=== PATIENT | male | born 1940 | race Caucasian/White ===

== ENCOUNTER 2017-10-27 09:35 | Emergency (ER) | payer OTHER, BC ==
[2017-10-27 09:52] VITALS: BP 153/61; PULSE 72; TEMP 98; BMI 33.0
--- NOTE | 2017-10-27 10:57 | PDOC ---
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 Pt was walking down steps outside, slipped and fell on ice, hit R hip. No head trauma. Was able to pick himself back up and walk w/ some pain. Over last 4 days , he has noticed some mild bruising around the area, and progressive increasing localized dull pain. No neurologic complaints. No generalized symptoms such as fevers, chills, CP, SOB. Past History - Past Medical History Allergies/Adverse Reactions: Allergies Allergy/AdvReac Type Severity Reaction Status Date / Time No Known Allergies Allergy Verified 10/27/17 09:44 Home Medications: Ambulatory Orders Warfarin Na [Coumadin] 7.5 mg PO HS 11/17/13 Amlodipine Besylate/Benazepril [Lotrel 10-20 mg Capsule] 1 cap PO DAILY Aspirin [ASA -] 81 mg PO DAILY 10/27/17 Ezetimibe/Simvastatin [Ezetimibe-Simvastatin 10-40 mg] 1 each PO HS 10/27/17 Glimepiride 4 mg PO BID 10/27/17 Hydrochlorothiazide 25 mg PO DAILY 10/27/17 Metoprolol Tartrate 100 mg PO BID 10/27/17 Sitagliptin Phos/Metformin HCl [Janumet 50-1,000 mg Tablet] 1 each PO BID Tramadol HCl [Ultram -] 50 mg PO Q12H #14 tablet MDD 400mg 10/27/17 Warfarin Na [Coumadin] 5 mg PO HS 10/27/17 Cardiac Disorders: Yes (OPEN HEART SX) COPD: No Diabetes: Yes HTN: Yes - Surgical History Cardiac Surgery: Yes (OPEN HEART SX.MECHANICAL VALVE) - Suicide/Smoking/Psychosocial Hx Smoking History: Never smoked Have you smoked in the past 12 months: No Information on smoking cessation initiated: No Hx Alcohol Use: No Drug/Substance Use Hx: No Substance Use Type: None *Physical Exam - Vital Signs Last Vital Signs Temp Pulse Resp BP Pulse Ox 98.0 F 72 18 153/61 94 L 10/27/17 09:44 10/27/17 09:44 10/27/17 09:44 10/27/17 09:44 10/27/17 09:44 - Physical Exam Comments: GEN: AAOx3, NAD, Lying comfortable HEENT: PERRLA, EOMi CV: S1, S2, RRR LUNG: CTABL ABD: Soft, NT, ND, normoactive BS MSK: Mild scattered superficial bruising in R hip, no obvious deep hematoma. No localized tenderness. No leg length discrepancy. Difficulty bearng weight. No pain on passive R hip movement, pain w/ active flexion, extension, abduction. NEURO: CN 2-12 grossly intact Medical Decision Making - Medical Decision Making 77yo M w/ hx of AVR on Coumadin, presents w/ R hip pain s/p mechanical fall 4 days ago. Currently able to ambulate with limp due to pain. Difficulty bearing weight. Likely simple muscle strain w/ superficial bruise. Does not clinically appear to be a hematoma. --Pelvic XR 10/27/17 13:03 Pelvix XR wnl, no fractures. Patient informed it was likely muscular since pain on active rather than passive ROM. Will give Ultram 50mg BID prescription *DC/Admit/Observation/Transfer Diagnosis at time of Disposition: Muscle strain of gluteal region Qualifiers: Encounter type: initial encounter Laterality: right Qualified Code(s): S76.011A - Strain of muscle, fascia and tendon of right hip, initial encounter - Discharge Dispostion Disposition: HOME Condition at time of disposition: Stable Admit: No - Prescriptions Prescriptions: Tramadol HCl [Ultram -] 50 mg PO Q12H #14 tablet MDD 400mg - Referrals Referrals: Bernardino Dixon MD [Primary Care Provider] - 7 days - Patient Instructions Printed Discharge Instructions: DI for Gluteal Strain Additional Instructions: You were seen in the Emergency Department due to your R hip pain. It does not appear that you have a hematoma. You do not have a fracture according to the X- Ray. We will give you Tramadol x 1 week. It is unlikely, but Tramadol may interact with COumadin. We would like you to follow up with Dr. Dixon this week to check your INR and to ensure the pain is not getting worse. If the pain worsens, if you have fevers or chills, or have any headaches, excessive bleeding. Please come back to the Emergency Room. - Post Discharge Activity
--- NOTE | 2017-10-27 11:17 | PDOC ---
Attending Attestation - Resident Resident Name: Melissa Calles - ED Attending Attestation I have performed the following: I have examined & evaluated the patient, The case was reviewed & discussed with the resident, I agree w/resident's findings & plan, Exceptions are as noted - HPI HPI: 10/27/17 11:09 77y M s/p mechanical fall 4 days ago, slipped on ice, presents with R hip pain. No LOC, head injiury, headache. Was able to ambulate afterwards, and was ok the day after, but pain worsed over the past day. No associated back pain, numbness/ tingling/weakness. but has been gradually worsening. +bruising noted. Last INR check was 2 weeks ago. on exam +ecchymosis on R hip pt wit hmild tenderness on R hip, but no pain with passive ROM, more pain on active ROM and abduction - suspect muscular in nature. antalgic gait. will obtain xrays - Physicial Exam PE: 10/27/17 17:20 see above - Medical Decision Making 10/27/17 14:20 xray neg pt abmulatory suspect musuclar pain and eccymosis will dc with supportive care return precautions were discussed I discussed the physical exam findings, ancillary test results and final diagnoses with the patient. I answered all of the patient's questions. The patient was satisfied with the care received and felt comfortable with the discharge plan and treatment plan. The patient will call their primary care physician within 24 hours to arrange follow-up and will return to the Emergency Department with any new, persistent or worsening symptoms.
[2017-10-27] MEDS ORDERED: traMADol HCL 50 MG TABLET PO ONE (11:28)
[2017-10-27] MEDS ORDERED: traMADol HCL 50 MG TABLET ONE (11:38)
== END 2017-10-27 13:53 | disposition home or self-care (01) ==
LOC: JER 09:35
DX: S76.011A Strain of muscle, fascia and tendon of right hip, initial encounter (principal); W00.1XXA Fall from stairs and steps due to ice and snow, initial encounter; Y93.89 Activity, other specified; Y92.038 Other place in apartment as the place of occurrence of the external cause; Y99.8 Other external cause status; I10 Essential (primary) hypertension; E11.9 Type 2 diabetes mellitus without complications; Z79.84 Long term (current) use of oral hypoglycemic drugs; Z95.2 Presence of prosthetic heart valve; Z79.01 Long term (current) use of anticoagulants
CPT/HCPCS: 72170-TC; 99282-25

== ENCOUNTER 2020-05-03 16:15 | Inpatient (IN) | payer OTHER, BC ==
--- NOTE | 2020-05-03 17:10 | PDOC ---
History of Present Illness - General Chief Complaint: Respiratory Stated Complaint: HEMATEMESIS Time Seen by Provider: 05/03/20 16:43 - History of Present Illness Initial Comments: 79M hx of aortic valve replacement in 1999 (on coumadin), HTN, HLD, DM presenting today with hematemesis. Reports that he vomited once yesterday and twice today. Brown colored vomit with no bright red blood and no black tarry color. First time this has happened. No diarrhea/constipation/blood in stool/melena. No history of gastric ulcers or esophageal varices. No chest pain/shortness of breath. No abdominal pain. No leg swelling. No headache/dizziness/syncope. Meds: coumadin SocHx: former ETOH and tobacco user, quit 20 years ago Past History - Medical History Allergies/Adverse Reactions: Allergies Allergy/AdvReac Type Severity Reaction Status Date / Time No Known Allergies Allergy Verified 05/03/20 16:26 Home Medications: Ambulatory Orders Warfarin Na [Coumadin] 7.5 mg PO HS 11/17/13 Amlodipine Besylate/Benazepril [Lotrel 10-20 mg Capsule] 1 cap PO DAILY 10/27/17 Aspirin [ASA -] 81 mg PO DAILY 10/27/17 Ezetimibe/Simvastatin [Ezetimibe-Simvastatin 10-40 mg] 1 each PO HS 10/27/17 Glimepiride 4 mg PO BID 10/27/17 Hydrochlorothiazide 25 mg PO DAILY 10/27/17 Metoprolol Tartrate 100 mg PO BID 10/27/17 Sitagliptin Phos/Metformin HCl [Janumet 50-1,000 mg Tablet] 1 each PO BID 10/27/17 Warfarin Na [Coumadin] 5 mg PO HS 10/27/17 traMADol HCL [Ultram -] 50 mg PO Q12H #14 tablet MDD 400mg 10/27/17 Cardiac Disorders: Yes (OPEN HEART SX) COPD: No Diabetes: Yes HTN: Yes Hypercholesterolemia: Yes - Surgical History Cardiac Surgery: Yes (OPEN HEART SX.) - Immunization History Immunization Up to Date: Yes - Psycho-Social/Smoking History Smoking History: Unknown if ever smoked Have you smoked in the past 12 months: No - Substance Abuse Hx (Audit-C & DAST Scrn) How often the patient has a drink containing alcohol: Never Score: In Men: 4 or > Positive; In Women: 3 or > Positive: 0 Screen Result (Pos requires Nsg. Audit-10AR): Negative In the last yr the pt used illegal drug/Rx for NonMed reason: No Score: Yes response is considered Positive: 0 Screen Result (Positive result requires Nsg. DAST-10): Negative Review of Systems - Review of Systems Comments:: GENERAL/CONSTITUTIONAL: No fever or chills. No weakness._ HEAD, EYES, EARS, NOSE AND THROAT: No change in vision. No change in hearing. No sore throat._ CARDIOVASCULAR: No chest pain or shortness of breath_ RESPIRATORY: Denies cough, hemoptysis_ GASTROINTESTINAL: Reports vomiting with blood. No diarrhea or constipation._ GENITOURINARY: No dysuria, frequency, or change in urination._ MUSCULOSKELETAL: No joint or muscle swelling or pain. No neck or back pain._ SKIN: No rash_ NEUROLOGIC: No headache, vertigo, loss of consciousness, or change in strength/sensation._ ENDOCRINE: No increased thirst. No abnormal weight change_ HEMATOLOGIC/LYMPHATIC: No anemia, easy bleeding, or history of blood clots._ ALLERGIC/IMMUNOLOGIC: No hives or skin allergy._ *Physical Exam - Vital Signs Last Vital Signs Temp Pulse Resp BP Pulse Ox 97.8 F 69 20 116/42 L 100 05/03/20 16:27 05/03/20 16:27 05/03/20 16:27 05/03/20 16:27 05/03/20 17:07 - Physical Exam GENERAL: Awake, alert, and oriented to person/place/time, in no acute distress_ HEAD: No signs of trauma, normocephalic, atraumatic _ EYES: PERRLA, EOMI, sclera anicteric, conjunctiva clear_ ENT: Hearing grossly normal, nares patent, oropharynx clear without exudates. No uvular deviation. Moist mucosa_ NECK: Normal ROM, supple, no lymphadenopathy, JVD, or masses_ LUNGS: No distress, speaks in full sentences, clear to auscultation bilaterally _ HEART: Regular rate and rhythm, normal S1 and S2, no murmurs appreciated, peripheral pulses normal and equal bilaterally._ ABDOMEN: Soft, nontender, normoactive bowel sounds. No guarding, no rebound. No masses_ EXTREMITIES: Normal inspection, Normal range of motion, no edema. No clubbing or cyanosis_ NEUROLOGICAL: Cranial nerves II through XII grossly intact. Normal speech, normal gait, no focal sensorimotor deficits _ SKIN: Warm, Dry, normal turgor, no rashes or lesions noted_ ED Treatment Course - LABORATORY CBC & Chemistry Diagram: 05/04/20 05:54 05/04/20 05:54 - RADIOLOGY Radiology Studies Ordered: Category Date Time Status CHEST X-RAY PORTABLE* [RAD] Stat Radiology 05/03/20 16:54 Ordered Medical Decision Making - Medical Decision Making 79M hx of afib (on coumadin), HTN HLD DM presenting today with hematemesis x3 (two yesterday, one today). Brown colored vomit. -cbc, cmp -ekg, trop, cxr -coags -type and screen 05/03/20 17:18 EKG shows 69 bpm, NSR, no axis deviation, NV 190, QTc 439, no ST elevation/depression. 05/03/20 17:52 CXR negative for acute chest pathology. 05/03/20 18:34 D/w Dr. Romero, who requests ICU admission and GI consultation. 80 protonix. 05/03/20 18:40 Labs reviewed. Laboratory Last Values WBC 17.4 K/mm3 (4.0-10.0) H 05/03/20 16:46 RBC 2.98 M/mm3 (4.00-5.60) L 05/03/20 16:46 Hgb 7.6 GM/dL (11.7-16.9) L 05/03/20 16:46 Hct 24.7 % (35.4-49) L D 05/03/20 16:46 MCV 82.6 fl (80-96) 05/03/20 16:46 MCH 25.4 pg (25.7-33.7) L 05/03/20 16:46 MCHC 30.7 g/dl (32.0-35.9) L 05/03/20 16:46 RDW 18.7 % (11.9-15.9) H 05/03/20 16:46 Plt Count 237 K/MM3 (134-434) D 05/03/20 16:46 MPV 9.1 fl (7.5-11.1) 05/03/20 16:46 Absolute Neuts (auto) 14.5 K/mm3 (1.5-8.0) H 05/03/20 16:46 Neutrophils % 83.2 % (42.8-82.8) H 05/03/20 16:46 Lymphocytes % 8.9 % (8-40) 05/03/20 16:46 Monocytes % 7.6 % (3.8-10.2) 05/03/20 16:46 Eosinophils % 0.0 % (0-4.5) 05/03/20 16:46 Basophils % 0.3 % (0-2.0) 05/03/20 16:46 Nucleated RBC % 0 % (0-0) 05/03/20 16:46 PT with INR 98.10 SEC (9.7-13.0) H 05/03/20 16:46 INR 8.14 (0.83-1.09) H* 05/03/20 16:46 PTT (Actin FS) 45.5 SECONDS (25.2-36.5) H 05/03/20 16:46 Sodium 139 mmol/L (136-145) 05/03/20 16:54 Potassium 5.3 mmol/L (3.5-5.1) H 05/03/20 16:54 Chloride 108 mmol/L (98-107) H 05/03/20 16:54 Carbon Dioxide 16 mmol/L (21-32) L 05/03/20 16:54 Anion Gap 15 MMOL/L (8-16) 05/03/20 16:54 Creatinine 2.2 mg/dL (0.55-1.3) H 05/03/20 16:54 Est GFR (CKD-EPI)AfAm 32.29 05/03/20 16:54 Est GFR (CKD-EPI)NonAf 27.86 05/03/20 16:54 Random Glucose 243 mg/dL (74-106) H 05/03/20 16:54 Calcium 8.4 mg/dL (8.5-10.1) L 05/03/20 16:54 Total Bilirubin 0.4 mg/dL (0.2-1) 05/03/20 16:54 AST 23 U/L (15-37) 05/03/20 16:54 ALT 21 U/L (13-61) 05/03/20 16:54 Alkaline Phosphatase 28 U/L (45-117) L 05/03/20 16:54 Creatine Kinase 389 U/L (26-308) H 05/03/20 16:54 Troponin I 0.02 ng/ml (0.00-0.05) 05/03/20 16:54 Total Protein 5.4 g/dl (6.4-8.2) L 05/03/20 16:54 Albumin 2.8 g/dl (3.4-5.0) L 05/03/20 16:54 Crossmatch See Detail 05/03/20 16:46 05/03/20 18:43 D/w Dr. Fraga in the ICU who accepts the pt for admission. Will order FFP and Vitamin K. 05/03/20 19:10 D/w Dr. Jones who recommends 2 units of FFP, recheck INR, and additional 2 units FFP if needed to bring INR down to therapeutic range. 05/03/20 19:18 Pt has a mechanical valve. Will obtain cards consult prior to coumadin reversal. Pt s/o to Dr. Perrin. Discharge - Discharge Information Problems reviewed: Yes Clinical Impression/Diagnosis: Upper gastrointestinal bleed Condition: Guarded - Admission Yes - Follow up/Referral - Patient Discharge Instructions - Post Discharge Activity
[2020-05-03 18:01] LABS: PROTHROMBIN TIME (PATIENT) 98.1 SEC (9.7-13.0)
[2020-05-03 18:04] LABS: ACTIVATED PTT 45.5 SECONDS (25.2-36.5)
[2020-05-03 18:05] LABS: BASO % 0.3 % (0-2.0); HEMATOCRIT 24.7 % (35.4-49); HEMOGLOBIN 7.6 GM/dL (11.7-16.9); LYMPH % 8.9 % (8-40); MCH 25.4 pg (25.7-33.7); MCHC 30.7 g/dl (32.0-35.9); MEAN CELL VOLUME 82.6 fl (80-96); MEAN PLT VOLUME 9.1 fl (7.5-11.1); MONO % 7.6 % (3.8-10.2); NEUT % 83.2 % (42.8-82.8); PLATELET COUNT 237 K/MM3 (134-434); RBC 2.98 M/mm3 (4.00-5.60); RDW 18.7 % (11.9-15.9); WHITE BLOOD COUNT 17.4 K/mm3 (4.0-10.0)
[2020-05-03] MEDS ORDERED: PANTOPRAZOLE SODIUM 80 MG/200 ML BAG IVPB ONE (18:18)
[2020-05-03 18:24] LABS: ALBUMIN 2.8 g/dl (3.4-5.0); BILIRUBIN,TOTAL 0.4 mg/dL (0.2-1); CALCIUM 8.4 mg/dL (8.5-10.1); CREATININE 2.2 mg/dL (0.55-1.3); POTASSIUM 5.3 mmol/L (3.5-5.1); TOT PROT 5.4 g/dl (6.4-8.2)
[2020-05-03] MEDS: PANTOPRAZOLE SODIUM 80 MG in SODIUM CHLORIDE 100 ML IVPB SCH (18:24)
--- NOTE | 2020-05-03 18:26 | HP ---
Admitting History and Physical - Admission History of Present Illness: 79y/o M with a PMH of aortic valve replacement in 1999 (on coumadin), HTN, HLD, DM who presents to the ED for 3 episode of brown colored emesis . Pt reports endorsing one episode yesterday and two episodes today. 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 Cardiovascular: Yes: HTN, Hyperlipdemia, Other (AVR) Endocrine: Yes: Diabetes Mellitus - Smoking History Smoking history: Unknown if ever smoked Have you smoked in the past 12 months: No - Alcohol/Substance Use Hx Alcohol Use: No Home Medications - Allergies Allergies/Adverse Reactions: Allergies Allergy/AdvReac Type Severity Reaction Status Date / Time No Known Allergies Allergy Verified 05/03/20 16:26 - Home Medications Home Medications: Ambulatory Orders Warfarin Na [Coumadin] 7.5 mg PO HS 11/17/13 Amlodipine Besylate/Benazepril [Lotrel 10-20 mg Capsule] 1 cap PO DAILY 10/27/17 Aspirin [ASA -] 81 mg PO DAILY 10/27/17 Ezetimibe/Simvastatin [Ezetimibe-Simvastatin 10-40 mg] 1 each PO HS 10/27/17 Glimepiride 4 mg PO BID 10/27/17 Hydrochlorothiazide 25 mg PO DAILY 10/27/17 Metoprolol Tartrate 100 mg PO BID 10/27/17 Sitagliptin Phos/Metformin HCl [Janumet 50-1,000 mg Tablet] 1 each PO BID 10/27/17 Warfarin Na [Coumadin] 5 mg PO HS 10/27/17 traMADol HCL [Ultram -] 50 mg PO Q12H #14 tablet MDD 400mg 10/27/17 Review of Systems - Review of Systems Cardiovascular: denies: Chest Pain Respiratory: reports: Cough Gastrointestinal: reports: Nausea, Vomiting, Vomiting Blood. denies: Abdominal Pain Genitourinary: reports: No Symptoms Breasts: reports: No Symptoms Reported Physical Examination Vital Signs: Vital Signs Temperature 97.8 F 05/03/20 16:27 Pulse Rate 69 05/03/20 16:27 Respiratory Rate 20 05/03/20 16:27 Blood Pressure 116/42 L 05/03/20 16:27 O2 Sat by Pulse Oximetry (%) 100 05/03/20 17:07 Cardiovascular: Yes: Regular Rate and Rhythm, Murmur Respiratory: Yes: Regular, Rhonchi Gastrointestinal: Yes: Normal Bowel Sounds, Soft. No: Tenderness Edema: No Labs: CBC, BMP 05/03/20 16:46 05/03/20 16:54 Problem List - Problems (1) Upper gastrointestinal bleed Assessment/Plan: Transfuse PRBC PPI GI consult NPO Code(s): K92.2 - GASTROINTESTINAL HEMORRHAGE, UNSPECIFIED (2) S/P AVR Assessment/Plan: hold coumadin follow levels closely Code(s): Z95.2 - PRESENCE OF PROSTHETIC HEART VALVE (3) Hypercoagulable state Assessment/Plan: reverse INR to 2.5 monitor closely FFP Code(s): D68.59 - OTHER PRIMARY THROMBOPHILIA (4) HTN (hypertension) Code(s): I10 - ESSENTIAL (PRIMARY) HYPERTENSION (5) Anemia Assessment/Plan: Transfuse PRBC Follow levels CBC WBC 17.4 K/mm3 (4.0-10.0) H 05/03/20 16:46 RBC 2.98 M/mm3 (4.00-5.60) L 05/03/20 16:46 Hgb 7.6 GM/dL (11.7-16.9) L 05/03/20 16:46 Hct 24.7 % (35.4-49) L D 05/03/20 16:46 MCV 82.6 fl (80-96) 05/03/20 16:46 MCH 25.4 pg (25.7-33.7) L 05/03/20 16:46 MCHC 30.7 g/dl (32.0-35.9) L 05/03/20 16:46 RDW 18.7 % (11.9-15.9) H 05/03/20 16:46 Plt Count 237 K/MM3 (134-434) D 05/03/20 16:46 MPV 9.1 fl (7.5-11.1) 05/03/20 16:46 Absolute Neuts (auto) 14.5 K/mm3 (1.5-8.0) H 05/03/20 16:46 Neutrophils % 83.2 % (42.8-82.8) H 05/03/20 16:46 Lymphocytes % 8.9 % (8-40) 05/03/20 16:46 Monocytes % 7.6 % (3.8-10.2) 05/03/20 16:46 Eosinophils % 0.0 % (0-4.5) 05/03/20 16:46 Basophils % 0.3 % (0-2.0) 05/03/20 16:46 Nucleated RBC % 0 % (0-0) 05/03/20 16:46 Code(s): D64.9 - ANEMIA, UNSPECIFIED (6) FITO (acute kidney injury) Assessment/Plan: follow labs and repeat monitor I & O Renal consult Code(s): N17.9 - ACUTE KIDNEY FAILURE, UNSPECIFIED (7) Leukocytosis Assessment/Plan: maybe reactive r/o sepsis cultures hold off on abx pending work up id consult Code(s): D72.829 - ELEVATED WHITE BLOOD CELL COUNT, UNSPECIFIED
[2020-05-03] MEDS ORDERED: PHYTONADIONE 10 MG/1 ML AMP IVPB ONE (18:35)
[2020-05-03 18:38] LABS: INR 8.14 (0.83-1.09)
--- NOTE | 2020-05-03 19:00 | PDOC ---
Documentation entered by Luis Lindsey SCRIBE, acting as scribe for Muriel Hernandez MD. Muriel Hernandez MD: This documentation has been prepared by the Rosalia mays Xhesika, SCRIBE, under my direction and personally reviewed by me in its entirety. I confirm that the documentation accurately reflects all work, treatment, procedures, and medical decision making performed by me. Attending Attestation - Resident Resident Name: BalbirParker - ED Attending Attestation I have performed the following: I have examined & evaluated the patient, The case was reviewed & discussed with the resident, I agree w/resident's findings & plan, Exceptions are as noted - HPI HPI: 05/03/20 17:23 The patient is a 79y/o M with a PMH of aortic valve replacement in 1999 (on coumadin), HTN, HLD, DM who presents to the ED for 3 episode of brown colored emesis . Pt reports endorsing one episode yesterday and two episodes today. The patient denies chest pain, shortness of breath, headache and dizziness. Denies fever, chills, cough, nausea, vomiting, diarrhea and constipation. Denies dysuria, frequency, urgency and hematuria. Allergies: NKDA PCP: Dr. Dixon - Physicial Exam PE: 05/03/20 18:57 Agree with resident exam - Critical Care Time Total Critical Care Time: 40 Critical Care Statement: The care of this patient involved high complexity decision making to prevent further life threatening deterioration of the patient's condition and/or to evaluate & treat vital organ system(s) failure or risk of failure. - Medical Decision Making 05/03/20 18:57 79yo M hx valve replacement on coumadin presents to the ED with brown emesis x3 Vitals wnl hgb 7.6, down from 16 years ago INR 8, pt took coumadin last night Likely UGIB in setting of supratherapeutic INR GI Dr. Jones called x2, awaiting call back 2IVs in place prbc, FFP, IV vitamin K ordered ICU accepted patient Discharge - Discharge Information Problems reviewed: Yes Clinical Impression/Diagnosis: Upper gastrointestinal bleed - Follow up/Referral Referrals: Bernardino Dixon MD [Primary Care Provider] - - Patient Discharge Instructions - Post Discharge Activity
[2020-05-03 19:06] LABS: BLOOD UREA NITROGEN 117.8 mg/dL (7-18)
[2020-05-03] MEDS ORDERED: ONDANSETRON 4 MG/2 ML VIAL IVPUSH ONE (19:12)
--- NOTE | 2020-05-03 19:33 | CONSULT ---
Consultation: REQUESTING PROVIDER: Dr Mcgregor CONSULT REQUEST: ICU monitoring HISTORY OF PRESENT ILLNESS: 79 y.o male with PMH of aortic valve replacement ( in 2001) HTN HLD DM presents to the ED after having multiple episodes of hematemesis and was found to have a supratheraputic INR- he states that he has been having hematemesis for the last two days; states that he has not had much of an appetite the last few days either. This has never havent to him before- he denies taking any extra doses of his coumadin. He does not recall ever having a colonoscopy or an endoscopy . he has no alcohol history , denies any history of any varices. . he denies having any bloody stools. no diarrhea, no respiratory complaints- no recent travel or any sick contacts. in the ED patient receievd 1 unit of PRBC; 1 unit FFP and 10- mg vitamin K- GI was consulted- patient to receive 2 FFP and then rechecking of INR. patient was also started on protonix drip. cardiology consulted in given patient has aortic valve repair REVIEW OF SYSTEMS: CONSTITUTIONAL: Present: loss of appetite Absent: fever, chills, diaphoresis, generalized weakness, malaise, weight change HEENT: Absent: rhinorrhea, nasal congestion, throat pain, throat swelling, difficulty swallowing, mouth swelling, ear pain, eye pain, visual changes CARDIOVASCULAR: Absent: chest pain, syncope, palpitations, irregular heart rate, lightheadedness, peripheral edema RESPIRATORY: Absent: cough, shortness of breath, dyspnea with exertion, orthopnea, wheezing, stridor, hemoptysis GASTROINTESTINAL: Present: hematemesis, vomiting Absent: abdominal pain, abdominal distension, nausea, diarrhea, constipation, melena, hematochezia GENITOURINARY: Absent: dysuria, frequency, urgency, hesitancy, hematuria, flank pain, genital pain MUSCULOSKELETAL: Absent: myalgia, arthralgia, joint swelling, back pain, neck pain SKIN: Absent: rash, itching, pallor HEMATOLOGIC/IMMUNOLOGIC: Absent: easy bleeding, easy bruising, lymphadenopathy, frequent infections ENDOCRINE: Absent: unexplained weight gain, unexplained weight loss, heat intolerance, cold intolerance NEUROLOGIC: Absent: headache, focal weakness or paresthesias, dizziness, unsteady gait, seizure, mental status changes, bladder or bowel incontinence PSYCHIATRIC: Absent: anxiety, depression, suicidal or homicidal ideation, hallucinations. PHYSICAL EXAMINATION Vital Signs - 24 hr 05/03/20 05/03/20 16:27 17:07 Temperature 97.8 F Pulse Rate 69 Respiratory 20 Rate Blood Pressure 116/42 L O2 Sat by Pulse 88 L 100 Oximetry (%) GENERAL: Awake, alert, and fully oriented, in no acute distress. EYES: PEERLA; EOMI; no scleral icterus NECK: no JVD; no lymphadenopathy LUNGS:diminished breath sounds at the bases; no rales/rhonchi or wheezing HEART: RRR s1; s2 systolic murmurs ABDOMEN: Soft, NT ND +BS in all 4 quadrants MUSCULOSKELETAL: Normal range of motion at all joints. No bony deformities or tenderness. No CVA tenderness. EXTREMITIES: warm; well-perfused no clubbing/cyanosis or edema NEUROLOGICAL: Cranial nerves II-XII intact. Normal speech. Normal gait. PSYCHIATRIC: Cooperative. Good eye contact. Appropriate mood and affect. SKIN: Warm, dry, normal turgor, no rashes or lesions noted. Laboratory Results - last 24 hr 05/03/20 05/03/20 05/03/20 16:46 16:46 16:46 WBC 17.4 H RBC 2.98 L Hgb 7.6 L Hct 24.7 L D MCV 82.6 MCH 25.4 L MCHC 30.7 L RDW 18.7 H Plt Count 237 D MPV 9.1 Absolute Neuts (auto) 14.5 H Neutrophils % 83.2 H Lymphocytes % 8.9 Monocytes % 7.6 Eosinophils % 0.0 Basophils % 0.3 Nucleated RBC % 0 PT with INR 98.10 H INR 8.14 H* PTT (Actin FS) 45.5 H Sodium Potassium Chloride Carbon Dioxide Anion Gap BUN Creatinine Est GFR (CKD-EPI)AfAm Est GFR (CKD-EPI)NonAf Random Glucose Calcium Total Bilirubin AST ALT Alkaline Phosphatase Creatine Kinase Creatine Kinase Index CK-MB (CK-2) Troponin I Total Protein Albumin Blood Type A NEGATIVE Antibody Screen Negative Crossmatch See Detail 05/03/20 16:54 WBC RBC Hgb Hct MCV MCH MCHC RDW Plt Count MPV Absolute Neuts (auto) Neutrophils % Lymphocytes % Monocytes % Eosinophils % Basophils % Nucleated RBC % PT with INR INR PTT (Actin FS) Sodium 139 Potassium 5.3 H Chloride 108 H Carbon Dioxide 16 L Anion Gap 15 BUN 117.8 H* Creatinine 2.2 H Est GFR (CKD-EPI)AfAm 32.29 Est GFR (CKD-EPI)NonAf 27.86 Random Glucose 243 H Calcium 8.4 L Total Bilirubin 0.4 AST 23 ALT 21 Alkaline Phosphatase 28 L Creatine Kinase 389 H Creatine Kinase Index 2.2 CK-MB (CK-2) 8.6 H Troponin I 0.02 Total Protein 5.4 L Albumin 2.8 L Blood Type Antibody Screen Crossmatch Active Medications Generic Name Dose Route Start Last Admin Trade Name Freq PRN Reason Stop Dose Admin Chlorhexidine Gluconate 1 applic 05/03/20 22:00 Hibiclens For Decolonization - TP HS NORMA Pantoprazole Sodium 80 mg/ 100 mls @ 10 mls/hr 05/03/20 18:00 05/03/20 18:24 Sodium Chloride IVPB 05/06/20 17:49 10 mls/hr Q10H NORMA Administration 8 MG/HR Mupirocin 1 applic 05/03/20 22:00 Bactroban Ointment (For Decolonization) - NS 05/08/20 21:59 BID NORMA ASSESSMENT/PLAN: 79 y.o male with PMH of aortic valve replacement ( in 2001) HTN HLD DM presents to the ED after having multiple episodes of hematemesis and was found to have a supratheraputic INR of 8.1 #Neuro no issues -AOX3 #Cardio history of HTN; HLD: AV replacement (on coumadin) -already received 10mg vitamin K -cardio and GI consulted; to receive 2 units FFP then recheck INR -holding anti-hypertensives currently -monitor hemodynamics; maintain MAP >65 #GI upper GI bleed -protonix drip -GI consulted -to receive 2 units of FFP then recheck INR -NPO -IVF #Heme patients Hgb was 7.9 -to receive 1 unit of PRBCs -post transfusion CBC -maintain Hgb >8 given cardiac history #Pulmonary currently saturating well on 2L NC -monitor respiratory status closely given multiple episodes of hematemesis #Renal Cr 2.2; likely pre-renal hyperkalemia- 5.1 -IVF -renal consult f/e/n IVF monitor electrolytes NPO Dispo: We will continue to follow the patient. Thank you for this consultative opportunity. Problem List - Problems (1) Upper gastrointestinal bleed Code(s): K92.2 - GASTROINTESTINAL HEMORRHAGE, UNSPECIFIED Visit type - Medication Review Med list reviewed for High Risk Meds patients 65 and older: Yes - Emergency Visit Emergency Visit: Yes ED Registration Date: 05/03/20 Care time: The patient presented to the Emergency Department on the above date and was hospitalized for further evaluation of their emergent condition. - New Patient This patient is new to me today: Yes Date on this admission: 05/03/20 - Critical Care Critical Care patient: Yes Total Critical Care Time (in minutes): 35 Critical Care Statement: The care of this patient involved high complexity decision making to prevent further life threatening deterioration of the patient's condition and/or to evaluate & treat vital organ system(s) failure or risk of failure. ATTENDING PHYSICIAN STATEMENT I saw and evaluated the patient. I reviewed the resident's note and discussed the case with the resident. I agree with the resident's findings and plan as documented. SUBJECTIVE: OBJECTIVE: ASSESSMENT AND PLAN:
--- NOTE | 2020-05-03 20:21 | PDOC ---
*Physical Exam - Vital Signs Last Vital Signs Temp Pulse Resp BP Pulse Ox 97.8 F 71 18 114/42 L 99 05/03/20 16:27 05/03/20 20:15 05/03/20 20:15 05/03/20 20:15 05/03/20 20:15 ED Treatment Course - LABORATORY CBC & Chemistry Diagram: 05/03/20 16:46 05/03/20 16:54 - ADDITIONAL ORDERS Additional order review: Laboratory Results 05/03/20 05/03/20 05/03/20 16:54 16:46 16:46 PT with INR 98.10 H INR 8.14 H* PTT (Actin FS) 45.5 H Sodium 139 Potassium 5.3 H Chloride 108 H Carbon Dioxide 16 L Anion Gap 15 BUN 117.8 H* Creatinine 2.2 H Est GFR (CKD-EPI)AfAm 32.29 Est GFR (CKD-EPI)NonAf 27.86 Random Glucose 243 H Calcium 8.4 L Total Bilirubin 0.4 AST 23 ALT 21 Alkaline Phosphatase 28 L Creatine Kinase 389 H Creatine Kinase Index 2.2 CK-MB (CK-2) 8.6 H Troponin I 0.02 Total Protein 5.4 L Albumin 2.8 L Blood Type A NEGATIVE Antibody Screen Negative Crossmatch See Detail 05/03/20 16:46 RBC 2.98 L MCV 82.6 MCHC 30.7 L RDW 18.7 H MPV 9.1 Neutrophils % 83.2 H Lymphocytes % 8.9 Monocytes % 7.6 Eosinophils % 0.0 Basophils % 0.3 - Medications Given in the ED: ED Medications Discontinued Medications Generic Name Dose Route Start Last Admin Trade Name Adelita PRN Reason Stop Dose Admin Ondansetron HCl 4 mg 05/03/20 19:12 05/03/20 19:45 Zofran Injection IVPUSH 05/03/20 19:13 4 mg ONCE ONE Administration Phytonadione 10 mg 05/03/20 18:35 05/03/20 19:45 Aqua Mephyton Injection - IVPB 05/03/20 18:36 10 mg ONCE ONE Administration Discharge - Discharge Information Clinical Impression/Diagnosis: Upper gastrointestinal bleed - Follow up/Referral - Patient Discharge Instructions - Post Discharge Activity
[2020-05-03] MEDS: LACTATED RINGERS SOLUTION 1,000 ML/1,000 ML INFUS.BAG IV SCH (20:46)
[2020-05-03] MEDS ORDERED: CEFTRIAXONE 2 GM/100 ML BAG IVPB ONE ×2 (21:41→21:47)
[2020-05-03] MEDS: INSULIN SLIDING SCALE (NOVOLOG) 1 VIAL SQ SCH (21:53)
[2020-05-04 02:47] LABS: URINE APPEARANCE CLEAR; URINE BILIRUBIN NEGATIVE (NEGATIVE); URINE COLOR YELLOW; URINE GLUCOSE (UA) NEGATIVE (NEGATIVE); URINE KETONE NEGATIVE (NEGATIVE); URINE LEUK ESTERASE NEGATIVE (NEGATIVE); URINE NITRITE NEGATIVE (NEGATIVE); URINE PROTEIN NEGATIVE (NEGATIVE); URINE UROBILINOGEN 0.2 mg/dL (0.2-1.0)
--- NOTE | 2020-05-04 05:09 | CON.HO ---
Consult - text type - Consultation Consultation Note: 79y/o M with a PMH of mechanical aortic valve replacement in 1999 (on coumadin),s/p CABG, HTN, HLD, DM who presents to the ED for 3 episode of coffee ground emesis per day for the last 3-4 days . Also with melen. Denies bright red blood per rcectum. Denies abdominal cramping - Past Medical History Cardiovascular: Yes: HTN, Hyperlipdemia, Other (AVR) Endocrine: Yes: Diabetes Mellitus - Smoking History Smoking history: Unknown if ever smoked - Allergies Allergies/Adverse Reactions: Allergies Allergy/AdvReac Type Severity Reaction Status Date / Time No Known Allergies Allergy Verified 05/03/20 16:26 - Home Medications Home Medications: Ambulatory Orders Warfarin Na [Coumadin] 7.5 mg PO HS 11/17/13 Amlodipine Besylate/Benazepril [Lotrel 10-20 mg Capsule] 1 cap PO DAILY 10/27/17 Aspirin [ASA -] 81 mg PO DAILY 10/27/17 Ezetimibe/Simvastatin [Ezetimibe-Simvastatin 10-40 mg] 1 each PO HS 10/27/17 Glimepiride 4 mg PO BID 10/27/17 Hydrochlorothiazide 25 mg PO DAILY 10/27/17 Metoprolol Tartrate 100 mg PO BID 10/27/17 Sitagliptin Phos/Metformin HCl [Janumet 50-1,000 mg Tablet] 1 each PO BID 10/27/17 Warfarin Na [Coumadin] 5 mg PO HS 10/27/17 traMADol HCL [Ultram -] 50 mg PO Q12H #14 tablet MDD 400mg 10/27/17 Physical Examination Vital Signs: Vital Signs Temperature 97.8 F 05/03/20 16:27 Pulse Rate 69 05/03/20 16:27 Respiratory Rate 20 05/03/20 16:27 Blood Pressure 116/42 L 05/03/20 16:27 O2 Sat by Pulse Oximetry (%) 100 05/03/20 17:07 Cardiovascular: Yes: Regular Rate and Rhythm, Murmur Respiratory: Yes: Regular, Rhonchi Gastrointestinal: Yes: Normal Bowel Sounds, Soft. Edema: No Labs: CBC, BMP 05/03/20 16:46 05/03/20 16:54 Problem List 79y/o M with a PMH of mechanical aortic valve replacement in 1999 (on coumadin),s/p CABG, HTN, HLD, DM who presents to the ED for 3 episode of coffee ground emesis per day for the last 3-4 days . Also with melena. Denies bright red blood per rcectum. Denies abdominal cramping s/p vitamin K 10mg IVPB 2units FFP ordered per ER recheck INR Monitor CBC/INR GI consult r/o occult infxn as cause of coagulopathy -- ceck cultures discussed with shredding machine operator Dr. Betancourt
[2020-05-04] MEDS: PANTOPRAZOLE SODIUM 80 MG in SODIUM CHLORIDE 100 ML IVPB SCH ×2 (05:34→14:21)
[2020-05-04 06:03] LABS: BASO % 0.4 % (0-2.0); EOS % 0.2 % (0-4.5); HEMATOCRIT 22.8 % (35.4-49); HEMOGLOBIN 7.3 GM/dL (11.7-16.9); LYMPH % 9.6 % (8-40); MCHC 32.1 g/dl (32.0-35.9); MEAN PLT VOLUME 8.1 fl (7.5-11.1); MONO % 13.4 % (3.8-10.2); NEUT % 76.4 % (42.8-82.8); PLATELET COUNT 197 K/MM3 (134-434); RBC 2.82 M/mm3 (4.00-5.60); RDW 18.2 % (11.9-15.9); WHITE BLOOD COUNT 14.2 K/mm3 (4.0-10.0)
[2020-05-04 06:31] LABS: BILIRUBIN,TOTAL 0.6 mg/dL (0.2-1); BLOOD UREA NITROGEN 93.5 mg/dL (7-18); CALCIUM 8.6 mg/dL (8.5-10.1); CREATININE 1.6 mg/dL (0.55-1.3); MAGNESIUM 2.5 mg/dL (1.8-2.4); PHOSPHOROUS 3.6 mg/dL (2.5-4.9); TOT PROT 5.7 g/dl (6.4-8.2)
[2020-05-04] MEDS: INSULIN SLIDING SCALE (NOVOLOG) 1 VIAL SQ SCH ×4 (06:42→23:09)
[2020-05-04 07:38] LABS: INR 1.53 (0.83-1.09); PROTHROMBIN TIME (PATIENT) 18.1 SEC (9.7-13.0)
[2020-05-04 07:40] LABS: ACTIVATED PTT 25.2 SECONDS (25.2-36.5)
--- NOTE | 2020-05-04 08:35 | PN ---
Progress Note, Physician - Current Medication List Current Medications: Active Medications Chlorhexidine Gluconate (Hibiclens For Decolonization -) 1 applic TP HS NORMA Pantoprazole Sodium 80 mg/ (Sodium Chloride) 100 mls @ 10 mls/hr IVPB Q10H NORMA Stop: 05/06/20 17:49 Last Admin: 05/04/20 05:34 Dose: 10 mls/hr Documented by: Lactated Ringer's (Lactated Ringers Solution) 1,000 ml in 1,000 mls @ 75 mls/hr IV ASDIR NORMA Last Admin: 05/03/20 20:46 Dose: 75 mls/hr Documented by: Insulin Aspart (Novolog Vial Sliding Scale -) 1 vial SQ ACHS [facility]; Protocol Last Admin: 05/04/20 06:42 Dose: Not Given Documented by: Mupirocin (Bactroban Ointment (For Decolonization) -) 1 applic NS BID [facility] Stop: 05/08/20 21:59 Phytonadione (Aqua Mephyton Injection -) 10 mg SQ ONCE ONE Stop: 05/04/20 08:12 - Objective Vital Signs: Vital Signs Temperature 97.9 F 05/04/20 06:43 Pulse Rate 85 05/04/20 06:43 Respiratory Rate 20 05/04/20 06:43 Blood Pressure 119/67 05/04/20 06:43 O2 Sat by Pulse Oximetry (%) 95 05/04/20 06:43 Cardiovascular: Yes: Murmur, S1, S2 Respiratory: Yes: Regular, CTA Bilaterally Gastrointestinal: Yes: Normal Bowel Sounds, Soft. No: Tenderness Labs: CBC, BMP 05/04/20 05:54 05/04/20 05:54 INR, PTT INR 1.53 (0.83-1.09) H 05/04/20 05:38 Problem List - Problems (1) Upper gastrointestinal bleed Assessment/Plan: Transfuse PRBC one more unit hgb 7.2 PPI GI consult NPO Code(s): K92.2 - GASTROINTESTINAL HEMORRHAGE, UNSPECIFIED (2) S/P AVR Assessment/Plan: hold coumadin follow levels closely will consider heparin drip once cleared by gi cardio Code(s): Z95.2 - PRESENCE OF PROSTHETIC HEART VALVE (3) Hypercoagulable state Assessment/Plan: reverse INR to 2.5--now 1.5 monitor closely FFP and vitamon k given Code(s): D68.59 - OTHER PRIMARY THROMBOPHILIA (4) HTN (hypertension) Code(s): I10 - ESSENTIAL (PRIMARY) HYPERTENSION (5) Anemia Assessment/Plan: Transfuse PRBC Follow levels CBC WBC 14.2 K/mm3 (4.0-10.0) H 05/04/20 05:54 RBC 2.82 M/mm3 (4.00-5.60) L 05/04/20 05:54 Hgb 7.3 GM/dL (11.7-16.9) L 05/04/20 05:54 Hct 22.8 % (35.4-49) L 05/04/20 05:54 MCV 81.0 fl (80-96) 05/04/20 05:54 MCH 26.0 pg (25.7-33.7) 05/04/20 05:54 MCHC 32.1 g/dl (32.0-35.9) 05/04/20 05:54 RDW 18.2 % (11.9-15.9) H 05/04/20 05:54 Plt Count 197 K/MM3 (134-434) 05/04/20 05:54 MPV 8.1 fl (7.5-11.1) D 05/04/20 05:54 Absolute Neuts (auto) 10.8 K/mm3 (1.5-8.0) H 05/04/20 05:54 Neutrophils % 76.4 % (42.8-82.8) 05/04/20 05:54 Lymphocytes % 9.6 % (8-40) 05/04/20 05:54 Monocytes % 13.4 % (3.8-10.2) H 05/04/20 05:54 Eosinophils % 0.2 % (0-4.5) D 05/04/20 05:54 Basophils % 0.4 % (0-2.0) 05/04/20 05:54 Nucleated RBC % 0 % (0-0) 05/04/20 05:54 Code(s): D64.9 - ANEMIA, UNSPECIFIED (6) FITO (acute kidney injury) Assessment/Plan: Improving follow labs and repeat monitor I & O Renal consult Code(s): N17.9 - ACUTE KIDNEY FAILURE, UNSPECIFIED (7) Leukocytosis Assessment/Plan: maybe reactive r/o sepsis cultures ceftriaxone given x 1 dose id consult lactic acid 5.5--2.7 Code(s): D72.829 - ELEVATED WHITE BLOOD CELL COUNT, UNSPECIFIED
--- NOTE | 2020-05-04 08:37 | PN ---
Physical Exam: SUBJECTIVE: Patient seen and examined in the ICU. Pt stated that he felt better. Pt stated that he originally came in with weakness and that it has significantly improved today. Denied having episodes of hematemesis overnight. Denies fevers, chills, shortness of breath, chest pain, abdominal pain, diarrhea. OBJECTIVE: Vital Signs Period Temp Pulse Resp BP Sys/Rutherford Pulse Ox Last 24 Hr 97.5 F-97.9 F 69-92 18-21 112-125/32-67 88-100 GENERAL: AAOx3, in no acute distress. HEENT: NCAT, EOMI LUNGS: Breath sounds equal, clear to auscultation bilaterally, no wheezes HEART: Regular rate and rhythm, S1, S2 without murmur ABDOMEN: Soft, nontender, nondistended, bowel sounds present in all 4 quadrants EXTREMITIES: warm, well-perfused, no edema in all 4 extremities SKIN: Warm, dry Laboratory Last Values WBC 14.2 K/mm3 (4.0-10.0) H 05/04/20 05:54 RBC 2.82 M/mm3 (4.00-5.60) L 05/04/20 05:54 Hgb 7.3 GM/dL (11.7-16.9) L 05/04/20 05:54 Hct 22.8 % (35.4-49) L 05/04/20 05:54 MCV 81.0 fl (80-96) 05/04/20 05:54 MCH 26.0 pg (25.7-33.7) 05/04/20 05:54 MCHC 32.1 g/dl (32.0-35.9) 05/04/20 05:54 RDW 18.2 % (11.9-15.9) H 05/04/20 05:54 Plt Count 197 K/MM3 (134-434) 05/04/20 05:54 MPV 8.1 fl (7.5-11.1) D 05/04/20 05:54 Absolute Neuts (auto) 10.8 K/mm3 (1.5-8.0) H 05/04/20 05:54 Neutrophils % 76.4 % (42.8-82.8) 05/04/20 05:54 Lymphocytes % 9.6 % (8-40) 05/04/20 05:54 Monocytes % 13.4 % (3.8-10.2) H 05/04/20 05:54 Eosinophils % 0.2 % (0-4.5) D 05/04/20 05:54 Basophils % 0.4 % (0-2.0) 05/04/20 05:54 Nucleated RBC % 0 % (0-0) 05/04/20 05:54 PT with INR 18.10 SEC (9.7-13.0) H 05/04/20 05:38 INR 1.53 (0.83-1.09) H 05/04/20 05:38 PTT (Actin FS) 25.2 SECONDS (25.2-36.5) 05/04/20 05:38 Sodium 142 mmol/L (136-145) 05/04/20 05:54 Potassium 4.0 mmol/L (3.5-5.1) 05/04/20 05:54 Chloride 111 mmol/L (98-107) H 05/04/20 05:54 Carbon Dioxide 23 mmol/L (21-32) 05/04/20 05:54 Anion Gap 8 MMOL/L (8-16) 05/04/20 05:54 BUN 93.5 mg/dL (7-18) H 05/04/20 05:54 Creatinine 1.6 mg/dL (0.55-1.3) H 05/04/20 05:54 Est GFR (CKD-EPI)AfAm 47.46 05/04/20 05:54 Est GFR (CKD-EPI)NonAf 40.95 05/04/20 05:54 POC Glucometer 224 UNITS (80-120) 05/04/20 11:47 Random Glucose 183 mg/dL (74-106) H 05/04/20 05:54 Lactic Acid 2.7 mmol/L (0.4-2.0) H* 05/04/20 05:38 Calcium 8.6 mg/dL (8.5-10.1) 05/04/20 05:54 Phosphorus 3.6 mg/dL (2.5-4.9) 05/04/20 05:54 Magnesium 2.5 mg/dL (1.8-2.4) H 05/04/20 05:54 Iron 23 ug/dL (50-175) L 05/03/20 16:54 TIBC 368 ug/dL (250-450) 05/03/20 16:54 Iron Saturation 6 % (17.5-39) L 05/03/20 16:54 Unsaturated IBC 345 ug/dL (200-275) H 05/03/20 16:54 Ferritin 15.9 ng/ml (8-388) 05/03/20 16:54 Total Bilirubin 0.6 mg/dL (0.2-1) 05/04/20 05:54 AST 26 U/L (15-37) 05/04/20 05:54 ALT 21 U/L (13-61) 05/04/20 05:54 Alkaline Phosphatase 32 U/L (45-117) L 05/04/20 05:54 Creatine Kinase 318 U/L (26-308) H 05/04/20 05:38 Creatine Kinase Index 2.3 % (0.0-5.0) 05/04/20 05:38 CK-MB (CK-2) 7.6 ng/mL (0.5-3.6) H 05/04/20 05:38 Troponin I 0.02 ng/ml (0.00-0.05) 05/04/20 05:38 Total Protein 5.7 g/dl (6.4-8.2) L 05/04/20 05:54 Albumin 3.0 g/dl (3.4-5.0) L 05/04/20 05:54 Lipase 212 U/L (73-393) 05/04/20 05:54 Urine Color Yellow 05/04/20 01:41 Urine Appearance Clear 05/04/20 01:41 Urine pH 5.0 (5.0-8.0) 05/04/20 01:41 Ur Specific [place] 1.016 (1.010-1.035) 05/04/20 01:41 Urine Protein Negative (NEGATIVE) 05/04/20 01:41 Urine Glucose (UA) Negative (NEGATIVE) 05/04/20 01:41 Urine Ketones Negative (NEGATIVE) 05/04/20 01:41 Urine Blood Negative (NEGATIVE) 05/04/20 01:41 Urine Nitrite Negative (NEGATIVE) 05/04/20 01:41 Urine Bilirubin Negative (NEGATIVE) 05/04/20 01:41 Urine Urobilinogen 0.2 mg/dL (0.2-1.0) 05/04/20 01:41 Ur Leukocyte Esterase Negative (NEGATIVE) 05/04/20 01:41 Blood Type A NEGATIVE 05/03/20 20:30 Antibody Screen Negative 05/03/20 20:30 Crossmatch See Detail 05/03/20 20:30 Active Medications Chlorhexidine Gluconate (Hibiclens For Decolonization -) 1 applic TP HS NORMA Pantoprazole Sodium 80 mg/ (Sodium Chloride) 100 mls @ 10 mls/hr IVPB Q10H [facility] Stop: 05/06/20 17:49 Last Admin: 05/04/20 05:34 Dose: 10 mls/hr Documented by: Lactated Ringer's (Lactated Ringers Solution) 1,000 ml in 1,000 mls @ 75 mls/hr IV ASDIR [facility] Last Admin: 05/03/20 20:46 Dose: 75 mls/hr Documented by: Insulin Aspart (Novolog Vial Sliding Scale -) 1 vial SQ ACHS [facility]; Protocol Last Admin: 05/04/20 11:51 Dose: 4 unit Documented by: Mupirocin (Bactroban Ointment (For Decolonization) -) 1 applic NS BID NORMA Stop: 05/08/20 21:59 Last Admin: 05/04/20 10:26 Dose: 1 applic Documented by: ASSESSMENT/PLAN: 79 y.o male with PMH of aortic valve replacement ( in 2001) HTN, HLD, DM presents to the ED after having multiple episodes of hematemesis and was found t o have a supratheraputic INR of 8.1. Pt stated that he felt better. Pt stated that he originally came in with weakness and that it has significantly improved today. Denied having episodes of hematemesis overnight. #Neuro no acute issues -AAOx3 #Cardio history of HTN; HLD: AV replacement (coumadin held) - Received 10mg vitamin K -cardio consulted. Discussed case with Dr. Betancourt. Cleared from cardiac standpoint to proceed to EGD. -Echo-normal LV, RV function. Mechanical prosthesis with normal function. -Start Lopressor -monitor BP and maintain MAP >65 #GI Upper GI bleed -Continue protonix drip -GI consulted. Recommended EGD today, keep INR <1.5. EGD showed no upper GI bleed. Post-op diagnosis - gastritis. Recommended heparin drip, no bolus. Start liquid diet, sodium controlled. Bowel prep for colonoscopy tomorrow. Hold heparin 4 hours prior to procedure. -Received 2 units of FFP, repeat INR is 1.53. -NPO after midnight. #Heme Hb 7.3 -received 2 U pRBC, repeat Hb 9.1 -transfuse to maintain Hgb >8 #Pulmonary -saturating well on 2L NC, supplemental O2 to keep SpO2 >92% -monitor respiratory status closely given multiple episodes of hematemesis #Renal hyperkalemia, resolved -Cr 1.6 -K+ 4.0 -IVF -renal consulted. Recommended to: -continue fluids, check UA, urine lytes and FLIGHT CONTROL MANAGER to calculate FeNa. Avoid nephrotoxins. Trend FLIGHT CONTROL MANAGER. Renal US when stable. Trend lactic acid. #Endo DM -ISS + BGM #ID Leukocytosis r/o sepsis -Follow cultures -Received IV Ceftriaxone, ampicillin, vancomycin for prophylaxis -ID consulted. -lactate 5.5-->2.7 #FEN -IVF- LR @ 75 -monitor electrolytes -NPO #Ppx -GI: PPI -DVT: Heparin Dispo: Continue to monitor in ICU. Colonoscopy tomorrow. Visit type - Emergency Visit Emergency Visit: Yes ED Registration Date: 05/03/20 Care time: The patient presented to the Emergency Department on the above date and was hospitalized for further evaluation of their emergent condition. - New Patient This patient is new to me today: No - Critical Care Critical Care patient: Yes Total Critical Care Time (in minutes): 38 Critical Care Statement: The care of this patient involved high complexity decision making to prevent further life threatening deterioration of the patient's condition and/or to evaluate & treat vital organ system(s) failure or risk of failure. - Medication Review Med list reviewed for High Risk Meds patients 65 and older: Yes ATTENDING PHYSICIAN STATEMENT I saw and evaluated the patient. I reviewed the resident's note and discussed the case with the resident. I agree with the resident's findings and plan as documented. SUBJECTIVE: OBJECTIVE: ASSESSMENT AND PLAN:
--- NOTE | 2020-05-04 08:39 | CON.GI ---
Consult Consult Specialty:: GI Referred by:: Hospitalist Service Reason for Consultation:: Anemia / coffee ground emesis - History of Present Illness Chief Complaint: Vomiting History of Present Illness: 79M BIBEMS from PMD's office for evaluation of coffee ground emesis. Had coffee ground vomiting once sunday accompanied by melena and once in his PMD Dr. Dixon's office. Noted INR 8. Is maintained on coumadin for metallic AVR and on ASA 81mg once daily. Denies OTC NSAID use. No further vomiting. Given FFP and vitamin K. INR 1.53 today. No further melena. Has never had EGD/Colonoscopy. Father had colon cancer at age 67. Has remained hemodynamically stable. No similar episodes in the past. 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 Place of : [facility] History of Recent Travel: No Home Medications - Allergies Allergies/Adverse Reactions: Allergies Allergy/AdvReac Type Severity Reaction Status Date / Time No Known Allergies Allergy Verified 05/03/20 16:26 - Home Medications Home Medications: Ambulatory Orders Warfarin Na [Coumadin] 7.5 mg PO HS 11/17/13 Amlodipine Besylate/Benazepril [Lotrel 10-20 mg Capsule] 1 cap PO DAILY 10/27/17 Aspirin [ASA -] 81 mg PO DAILY 10/27/17 Ezetimibe/Simvastatin [Ezetimibe-Simvastatin 10-40 mg] 1 each PO HS 10/27/17 Glimepiride 4 mg PO BID 10/27/17 Hydrochlorothiazide 25 mg PO DAILY 10/27/17 Metoprolol Tartrate 100 mg PO BID 10/27/17 Sitagliptin Phos/Metformin HCl [Janumet 50-1,000 mg Tablet] 1 each PO BID 10/27/17 Warfarin Na [Coumadin] 5 mg PO HS 10/27/17 traMADol HCL [Ultram -] 50 mg PO Q12H #14 tablet MDD 400mg 10/27/17 Family Medical History Family Hx Cancer: Father (Colon cancer) Family Hx Cardiac Disorders: Mother ([place]) Other Family History: SIster: : unclear cause. 1 son, 1 daughter: healthy Review of Systems - Review of Systems Constitutional: denies: Chills Cardiovascular: denies: Chest Pain Respiratory: denies: Cough, SOB Gastrointestinal: reports: Abdominal Pain (cramping, resolved) Physical Exam-GI Vital Signs: Vital Signs Temperature 97.9 F 05/04/20 06:43 Pulse Rate 85 05/04/20 06:43 Respiratory Rate 20 05/04/20 06:43 Blood Pressure 119/67 05/04/20 06:43 O2 Sat by Pulse Oximetry (%) 95 05/04/20 06:43 Constitutional: Yes: Calm Eyes: No: Sclera Icterus Cardiovascular: Yes: Regular Rate and Rhythm, Other (+ metallic click) Respiratory: Yes: CTA Bilaterally Gastrointestinal Inspection: No: Distention, Scars ...Auscultate: Yes: Normoactive Bowel Sounds ...Palpate: Yes: Soft. No: Hepatomegaly, Splenomegaly, Tenderness ...Percussion: No: Tympanitic ...Rectal Exam: Yes: Other (No external lesions, no masses, formed black stool) Edema: No (No LE edema) Neurological: Yes: Alert, Oriented Labs: CBC, BMP 05/04/20 05:54 05/04/20 05:54 INR, PTT INR 1.53 (0.83-1.09) H 05/04/20 05:38 Hepatic Panel Total Bilirubin 0.6 mg/dL (0.2-1) 05/04/20 05:54 AST 26 U/L (15-37) 05/04/20 05:54 ALT 21 U/L (13-61) 05/04/20 05:54 Alkaline Phosphatase 32 U/L (45-117) L 05/04/20 05:54 Albumin 3.0 g/dl (3.4-5.0) L 05/04/20 05:54 Problem List - Problems (1) Upper GI bleed Assessment/Plan: Upper GI bleed suspected. No further hematemesis, remains hemodynamically stable Advise: NPO IV fluids Continue IV protonix infusion @ 8mg/hr Keep Hgb >8 given h/o CAD requiring CABG Keep INR <1.5. Ordered Vitamin K 10mg sc x 1 Discussed upper endoscopy for further intraluminal evaluation. Discussed potential risks of the procedure like but not limited to bleeding, perforation requiring to repair, infection, sedation medication effects all of which could be potentially life threatening. He has agreed to the procedure. D/W Dr. Betancourt. Would prefer patient receives prophylactic Abx] Code(s): K92.2 - GASTROINTESTINAL HEMORRHAGE, UNSPECIFIED
[2020-05-04] MEDS ORDERED: SODIUM CHLORIDE 100 ML IVPB ONE (09:05)
[2020-05-04] MEDS ORDERED: AMPICILLIN SODIUM 2 GM VIAL ONE (09:05)
[2020-05-04] MEDS: PHYTONADIONE 10 MG/1 ML AMP SQ ONE ×2 (09:08→17:36)
--- NOTE | 2020-05-04 09:08 | PN ---
Progress Note (short form) - Note Progress Note: Spoke with anesthesia, patient will need cardiology evaluation prior as well as echocardiogram if not recently performed, as he will likely receive general anesthesia. Continue medical optimization Problem List - Problems (1) Upper GI bleed Code(s): K92.2 - GASTROINTESTINAL HEMORRHAGE, UNSPECIFIED
[2020-05-04] MEDS: AMPICILLIN - 2 GM in SODIUM CHLORIDE 100 ML IVPB ONE ×2 (09:09→14:43)
--- NOTE | 2020-05-04 09:15 | EKG ---
Test Reason : Blood Pressure : / mmHG Vent. Rate : 069 BPM Atrial Rate : 069 BPM P-R Int : 190 ms QRS Dur : 084 ms QT Int : 410 ms P-R-T Axes : 026 033 -06 degrees QTc Int : 439 ms NORMAL SINUS RHYTHM INFERIOR INFARCT , AGE UNDETERMINED ABNORMAL ECG WHEN COMPARED WITH ECG OF 14-SEP-2010 19:30, PREMATURE VENTRICULAR COMPLEXES ARE NO LONGER PRESENT INVERTED T WAVES HAVE REPLACED NONSPECIFIC T WAVE ABNORMALITY IN INFERIOR LEADS NONSPECIFIC T WAVE ABNORMALITY NOW EVIDENT IN ANTEROLATERAL LEADS Confirmed by MD SHELLEY, APOLINAR ([id number]) on 05/04/2020 9:15:23 AM Referred By: Confirmed By:APOLINAR ROSA MD
[2020-05-04] MEDS ORDERED: PHYTONADIONE 10 MG/1 ML AMP SQ ONE (09:57)
[2020-05-04] MEDS: MUPIROCIN 2% TOPICAL OINTMENT FOR DECOLONIZATION NS SCH ×3 (10:26→22:11)
--- NOTE | 2020-05-04 12:52 | PN ---
Teaching Attending Note Name of Resident: Loulou Mcgregor ATTENDING PHYSICIAN STATEMENT I saw and evaluated the patient. I reviewed the resident's note and discussed the case with the resident. I agree with the resident's findings and plan as documented. SUBJECTIVE: Patient seen and examined in the ICU. Awake and alert. No CP or SOB. Denies abdominal pain. Pending Cardiology evaluation. Intake & Output 05/01/20 05/02/20 05/03/20 05/04/20 23:59 23:59 23:59 23:59 Intake Total 1255 Output Total 600 100 Balance 655 -100 Weight 225 lb 230 lb 6.4 oz Last Vital Signs Temp Pulse Resp BP Pulse Ox 97.4 F L 97 H 19 113/44 L 97 05/04/20 10:00 05/04/20 10:00 05/04/20 10:00 05/04/20 10:00 05/04/20 10:00 Active Medications Chlorhexidine Gluconate (Hibiclens For Decolonization -) 1 applic TP HS [facility] Pantoprazole Sodium 80 mg/ (Sodium Chloride) 100 mls @ 10 mls/hr IVPB Q10H [facility] Stop: 05/06/20 17:49 Last Admin: 05/04/20 05:34 Dose: 10 mls/hr Documented by: Lactated Ringer's (Lactated Ringers Solution) 1,000 ml in 1,000 mls @ 75 mls/hr IV ASDIR [facility] Last Admin: 05/03/20 20:46 Dose: 75 mls/hr Documented by: Insulin Aspart (Novolog Vial Sliding Scale -) 1 vial SQ ACHS [facility]; Protocol Last Admin: 05/04/20 11:51 Dose: 4 unit Documented by: Mupirocin (Bactroban Ointment (For Decolonization) -) 1 applic NS BID [facility] Stop: 05/08/20 21:59 Last Admin: 05/04/20 10:26 Dose: 1 applic Documented by: GENERAL: Awake, alert, and fully oriented, in no acute distress. EYES: PEERLA; EOMI; no scleral icterus NECK: no JVD; no lymphadenopathy LUNGS:diminished breath sounds at the bases; no rales/rhonchi or wheezing HEART: RRR s1; s2 systolic murmurs ABDOMEN: Soft, NT ND +BS in all 4 quadrants MUSCULOSKELETAL: Normal range of motion at all joints. No bony deformities or tenderness. No CVA tenderness. EXTREMITIES: warm; well-perfused no clubbing/cyanosis or edema NEUROLOGICAL: Non-focal PSYCHIATRIC: Cooperative. Good eye contact. Appropriate mood and affect. SKIN: Warm, dry, normal turgor, no rashes or lesions noted. Laboratory Results - last 24 hr 05/03/20 05/03/20 05/03/20 16:46 16:46 16:46 WBC 17.4 H RBC 2.98 L Hgb 7.6 L Hct 24.7 L D MCV 82.6 MCH 25.4 L MCHC 30.7 L RDW 18.7 H Plt Count 237 D MPV 9.1 Absolute Neuts (auto) 14.5 H Neutrophils % 83.2 H Lymphocytes % 8.9 Monocytes % 7.6 Eosinophils % 0.0 Basophils % 0.3 Nucleated RBC % 0 PT with INR 98.10 H INR 8.14 H* PTT (Actin FS) 45.5 H Sodium Potassium Chloride Carbon Dioxide Anion Gap BUN Creatinine Est GFR (CKD-EPI)AfAm Est GFR (CKD-EPI)NonAf Random Glucose Calcium Total Bilirubin AST ALT Alkaline Phosphatase Creatine Kinase Creatine Kinase Index CK-MB (CK-2) Troponin I Total Protein Albumin Blood Type A NEGATIVE Antibody Screen Negative Crossmatch See Detail 05/03/20 16:54 WBC RBC Hgb Hct MCV MCH MCHC RDW Plt Count MPV Absolute Neuts (auto) Neutrophils % Lymphocytes % Monocytes % Eosinophils % Basophils % Nucleated RBC % PT with INR INR PTT (Actin FS) Sodium 139 Potassium 5.3 H Chloride 108 H Carbon Dioxide 16 L Anion Gap 15 BUN 117.8 H* Creatinine 2.2 H Est GFR (CKD-EPI)AfAm 32.29 Est GFR (CKD-EPI)NonAf 27.86 Random Glucose 243 H Calcium 8.4 L Total Bilirubin 0.4 AST 23 ALT 21 Alkaline Phosphatase 28 L Creatine Kinase 389 H Creatine Kinase Index 2.2 CK-MB (CK-2) 8.6 H Troponin I 0.02 Total Protein 5.4 L Albumin 2.8 L Blood Type Antibody Screen Crossmatch Problem List - Problems (1) Upper gastrointestinal bleed Code(s): K92.2 - GASTROINTESTINAL HEMORRHAGE, UNSPECIFIED ASSESSMENT/PLAN: Suspected Acute GI bleeding Supratherapeutic INR HTN HPL DM AV replacement on Coumadin Anemia Normal transfusion threshold : 8 gm Supplemental O2 as needed SCDs Follow INR Cardiology evaluation / clearance FFP PPI drip NPO ECHO For Endoscopic evaluation Dr Rodriguez
--- NOTE | 2020-05-04 12:54 | PN ---
Progress Note (short form) - Note Progress Note: ID CONSULT DICTATED UGIB COAGULOPATHY LEUKOCYTOSIS ? LEUKEMOID RXN ? SEPSIS LACTIC ACIDOSIS POSSIBLE ASPIRATION S/P AVR AWAIT C/S CONTINUE EMPIRIC CEFTRIAXONE VANCOMYCIN X 1 DOSE
[2020-05-04] MEDS ORDERED: VANCOMYCIN 1 GRAM (PRE-DOCKED) 1,000 MG/250 ML BAG IVPB ONE (12:56)
[2020-05-04] MEDS ORDERED: DEXTROSE 5%-WATER 100 ML IVPB ONE (13:12)
[2020-05-04] MEDS ORDERED: PT OWN MED DRAWER 7, Y5N ONE ×2 (13:12→14:15)
[2020-05-04] MEDS: CEFTRIAXONE 2 GM in DEXTROSE 5%-WATER 100 ML IVPB SCH (13:17)
--- NOTE | 2020-05-04 13:56 | CONS ---
INFECTIOUS DISEASE CONSULTATION DATE OF CONSULTATION: DATE OF DICTATION: 05/04/2020 HISTORY: The patient is a 79-year-old male who was evaluated for possible sepsis. The patient reports feeling well until this past weekend. On May 01, he began to experience generalized weakness. He reports on the and the he had episodes of vomiting coffee-ground material. He did not experience any abdominal pain. He presented to his primary care physician on Sunday, May 03, 2020. He was so weak he required his 's walker to ambulate to his physician's office. In the office he had another episode of hematemesis. He was transferred to the hospital where initial laboratory data showed an INR of 8.1. He received vitamin K and fresh frozen plasma. He is presently awaiting an upper endoscopy pending correction of his coagulopathy and clearance by Cardiology. In addition, a COVID-19 PCR was obtained. He denies any ill contacts. He lives at home with his who is well. He denies any abdominal pain. He now has been noted to cough. However, he denied any recent cough or febrile illness. No complaints of chest pain or shortness of breath. He denies dysuria or hematuria. He has not had a bowel movement in several days. Upon admission he was noted to have a white blood cell count of 17,000. Cultures were obtained. He was empirically treated with ceftriaxone. PAST MEDICAL HISTORY: Positive for diabetes mellitus, coronary artery disease, hyperlipidemia, hypertension. PAST SURGICAL HISTORY: Status post 1 vessel CABG and metallic aortic valve replacement in 1999. ALLERGIES: No known allergies. MEDICATIONS AT THE PRESENT TIME: Include ampicillin, ceftriaxone, Protonix, insulin, vitamin K. SOCIAL HISTORY: He resides at home with his . He is a former smoker, occasional EtOH. Denies any ill contacts. SYSTEMS REVIEW: Neurologic: Positive for generalized weakness. No loss of consciousness, seizure activity or focal weakness. Cardiac: Status post metallic aortic valve replacement on Coumadin. Respiratory: Positive for cough. No shortness of breath or sputum production. Gastrointestinal: As per HPI. Genitourinary: Negative for urinary tract infection. LABORATORY DATA: White count on admission 17.4, neutrophils 76, lymphocytes 9, monocytes 13, hematocrit 22.8, platelets 197. BUN 93, creatinine 1.6, total bilirubin 0.6, alkaline phosphatase 32, AST 26, ALT 21. Blood and urine cultures are pending. Urine leukocyte esterase negative. Chest x-ray negative for acute infiltrate. PHYSICAL EXAMINATION: General: He is weak appearing. He is supine in bed. His breathing is nonlabored. Vital Signs: Temperature 98.1, blood pressure 110/58, pulse 86 regular, respirations 18 per minute. HEENT: Sclerae are anicteric. Neck: Supple. Heart: Sounds S1, S2, tachycardic with pansystolic murmur. Lungs: Diminished breath sounds at the bases bilaterally. Abdomen: Obese, soft, nontender. Extremities: Negative for edema. IMPRESSION: 1. Upper gastrointestinal bleed. 2. Coagulopathy. 3. Leukocytosis. 4. Lactic acidosis. 5. Possible aspiration. 6. Status post aortic valve replacement. 7. Azotemia. Leukocytosis may represent leukemoid reaction secondary to stress from GI bleeding, cannot rule out concurrent infectious process in light of cough, generalized weakness and lactic acidosis. Await cultures. Continue empiric ceftriaxone for possible aspiration pneumonia. Will give 1 dose of vancomycin for additional staph coverage in light of presence of a prosthetic valve. Await COVID-19 PCR. Case discussed with Cardiology and GI. Critical care time spent 35 minutes. Thank you for the kind referral. ELIZA PHAM M.D. [id number]
--- NOTE | 2020-05-04 14:11 | PN ---
Progress Note (short form) - Note Progress Note: Spoke with Dr. Betancourt. Was present during echo. Normal LV function. OK to proceed with EGD. Problem List - Problems (1) Upper GI bleed Code(s): K92.2 - GASTROINTESTINAL HEMORRHAGE, UNSPECIFIED
--- NOTE | 2020-05-04 14:24 | ECHO ---
Version: 1 Name: ZACHARIAH ELLISON Exam: Adult Echocardiogram Study Date: 05/04/2020, 11:12 AM Age: 79 Years MMode/2D Measurements & Calculations IVSd: 1.62 cm LVIDs: 2.37 cm LVIDd: 3.8 cm LVPWd: 1.20 cm LAV (MOD-bp): 50.0 ml ACS: 1.48 cm Ao root diam: 2.7 cm LVOT diam: 2.15 cm LA dimension: 3.9 cm Doppler Measurements & Calculations MV mean P.7 mmHg MVA(VTI): 1.90 cm Lat Peak E' Christian: 9.9 cm/sec MV V2 max: 215.8 cm/sec MV max P.6 mmHg Med Peak E' Christian: 5.9 cm/sec Ao max P.4 mmHg ANGELICA(I,D): 1.55 cm Ao mean P.5 mmHg LV V1 mean: 91.6 cm/sec Ao V2 max: 371.2 cm/sec LV V1 mean P.9 mmHg TR max christian: 283.8 cm/sec TR max P.2 mmHg Procedure The study was technically difficult with many images being suboptimal in quality. Left Ventricle There is mild concentric left ventricular hypertrophy. Left ventricular systolic function is normal. Ejection Fraction = 65. Grade I diastolic dysfunction, (abnormal relaxation pattern). Right Ventricle The right ventricle is normal in size and function. Atria Normal left and right atrial size and function. Mitral Valve There is severe mitral annular calcification. 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 The re is mild mitral regurgitation. Tricuspid Valve The tricuspid valve is normal in structure and function. There is no tricuspid stenosis. There is mi ld tricuspid regurgitation. Aortic Valve Mechanical aortic valve prosthesis with normal function. Pulmonic Valve The pulmonic valve is not well visualized. Great Vessels The aortic root is not well visualized. Pericardium/Pleura There is no pericardial effusion. Tech Comments Technically difficult study due to body habitus. Summary Statements There is mild concentric left ventricular hypertrophy. Left ventricular systolic function is normal. The right ventricle is normal in size and function. There is severe mitral annular calcification. Functional mitral valve stenosis secondary to MAC The tricuspid valve is normal in structure and function. There is no tricuspid stenosis. There is mi ld tricuspid regurgitation. Mechanical aortic valve prosthesis with normal function. Anastacio Langford 05/04/2020, 2:24 PM Ordering Physician: Federica Romero Referring Physician: FEDERICA ROMERO Performed By: ISELA GARZA
[2020-05-04] MEDS ORDERED: SIMETHICONE 40 MG/0.6 ML BOTTLE ONE (14:35)
[2020-05-04] MEDS ORDERED: EPINEPHrine 1:10,000 (P-F SYR) 1 MG/10 ML DISP.SYRIN ONE (14:38)
[2020-05-04] MEDS ORDERED: TETRACAINE/BENZOCAINE/BUTAMBEN 20 GM SPR TP ONE (14:54)
--- NOTE | 2020-05-04 15:05 | CONSULT ---
Consult Consult Specialty:: Nephrology Reason for Consultation:: FITO - History of Present Illness Chief Complaint: brown emesis History of Present Illness: Pt is a 79 year old male with pmhx of htn, aortic valve replacement, hld, and dm who presents to the ER after having several episodes of emesis. He was found to have fito and I was called to evaluate him. He denies shortness of breath or chest pain. He has not had anything to eat in 3 days. He denies fevers or chills. He denies dysuria or hematuria. He denies history of CKD. He denies nsaid use. He was also found to have elevated inr. 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 History of Recent Travel: No Home Medications - Allergies Allergies/Adverse Reactions: Allergies Allergy/AdvReac Type Severity Reaction Status Date / Time No Known Allergies Allergy Verified 05/03/20 16:26 - Home Medications Home Medications: Ambulatory Orders Warfarin Na [Coumadin] 7.5 mg PO HS 11/17/13 Amlodipine Besylate/Benazepril [Lotrel 10-20 mg Capsule] 1 cap PO DAILY 10/27/17 Aspirin [ASA -] 81 mg PO DAILY 10/27/17 Ezetimibe/Simvastatin [Ezetimibe-Simvastatin 10-40 mg] 1 each PO HS 10/27/17 Glimepiride 4 mg PO BID 10/27/17 Hydrochlorothiazide 25 mg PO DAILY 10/27/17 Metoprolol Tartrate 100 mg PO BID 10/27/17 Sitagliptin Phos/Metformin HCl [Janumet 50-1,000 mg Tablet] 1 each PO BID 10/27/17 Warfarin Na [Coumadin] 5 mg PO HS 10/27/17 traMADol HCL [Ultram -] 50 mg PO Q12H #14 tablet MDD 400mg 10/27/17 Family Medical History Family History: Denies Review of Systems - Review of Systems Constitutional: reports: Malaise, Weakness Eyes: reports: No Symptoms HENT: reports: No Symptoms Neck: reports: No Symptoms Cardiovascular: reports: No Symptoms Respiratory: reports: No Symptoms Gastrointestinal: reports: Vomiting Genitourinary: reports: No Symptoms Musculoskeletal: reports: No Symptoms Integumentary: reports: No Symptoms Neurological: reports: No Symptoms Endocrine: reports: No Symptoms Hematology/Lymphatic: reports: No Symptoms Psychiatric: reports: No Symptoms Physical Exam Vital Signs: Vital Signs Temperature 98.3 F 05/04/20 14:00 Pulse Rate 102 H 05/04/20 14:00 Respiratory Rate 20 05/04/20 14:00 Blood Pressure 85/53 L 05/04/20 14:00 O2 Sat by Pulse Oximetry (%) 99 05/04/20 14:00 Constitutional: Yes: Calm Eyes: Yes: Conjunctiva Clear HENT: Yes: Atraumatic Neck: Yes: Supple Cardiovascular: Yes: Murmur, S1, S2 Gastrointestinal: Yes: Soft Renal/: Yes: WNL Musculoskeletal: Yes: WNL Edema: No Integumentary: Yes: WNL Neurological: Yes: Oriented Psychiatric: Yes: Oriented Labs: CBC, BMP 05/04/20 05:54 05/04/20 05:54 Imaging - Results Chest X-ray: Report Reviewed Problem List - Problems (1) FITO (acute kidney injury) Code(s): N17.9 - ACUTE KIDNEY FAILURE, UNSPECIFIED (2) Anemia Code(s): D64.9 - ANEMIA, UNSPECIFIED Assessment/Plan Current Medications Generic Name Dose Route Start Last Admin Trade Name Adelita PRN Reason Stop Dose Admin Chlorhexidine Gluconate 1 applic 05/03/20 22:00 Hibiclens For Decolonization - TP HS [facility] Pantoprazole Sodium 80 mg/ 100 mls @ 10 mls/hr 05/03/20 18:00 05/04/20 14:21 Sodium Chloride IVPB 05/06/20 17:49 10 mls/hr Q10H [facility] Administration 8 MG/HR Lactated Ringer's 1,000 ml in 1,000 mls @ 75 mls/hr 05/03/20 20:45 05/03/20 20:46 Lactated Ringers Solution IV 75 mls/hr ASDIR [facility] Administration Ceftriaxone Sodium 2 gm/ 100 mls @ 100 mls/hr 05/04/20 13:00 05/04/20 13:17 Dextrose IVPB 100 mls/hr DAILY [facility] Administration Protocol Insulin Aspart 1 vial 05/03/20 22:00 05/04/20 11:51 Novolog Vial Sliding Scale - SQ 4 unit ACHS [facility] Administration Protocol Mupirocin 1 applic 05/03/20 22:00 05/04/20 10:26 Bactroban Ointment (For Decolonization) - NS 05/08/20 21:59 1 applic BID [facility] Administration Laboratory Tests 03/29/13 08/21/15 05/03/20 07:33 08:10 16:46 Hgb 7.6 L INR Sodium Potassium Creatinine 0.8 D 1.3 D Lactic Acid Urine Protein Urine Blood COVID-19 ([facility]) 05/03/20 05/03/20 05/03/20 16:46 16:54 20:30 Hgb INR 8.14 H* Sodium Potassium Creatinine 2.2 H Lactic Acid Urine Protein Urine Blood COVID-19 ([facility]) Pending 05/04/20 05/04/20 05/04/20 01:41 05:38 05:38 Hgb INR 1.53 H Sodium Potassium Creatinine Lactic Acid 2.7 H* Urine Protein Negative Urine Blood Negative COVID-19 ([facility]) 05/04/20 05/04/20 05:54 05:54 Hgb 7.3 L INR Sodium 142 Potassium 4.0 Creatinine 1.6 H Lactic Acid Urine Protein Urine Blood COVID-19 ([facility]) Impressin 1. FITO 2. anemia 3. supratherapeutic INR 4. dm 5. htn 6. hld 7. lactic acidosis Plan - renal function improving - cont fluids - repeat labs in am - check ua - check urine lytes and recreation director to calc fena - avoid nephrotoxins - elevated inr is also a risk for FITO - cont to trend recreation director - renal ultrasound when stable - avoid nsaids - trend lactic acid
--- NOTE | 2020-05-04 15:35 | CONS ---
CARDIOLOGY CONSULTATION DATE OF CONSULTATION: 05/04/2020 CONSULTATION REQUESTED BY: Blade Grader Operator. CHIEF COMPLAINT: 1. Weakness. 2. Intermittent melena. 3. Hematemesis. HISTORY OF PRESENT ILLNESS: Patient is a 79-year-old white gentleman, known case of coronary artery disease, status post coronary artery bypass grafting and mechanical aortic valve replacement in 1999, history of hypertension, hypertensive cardiovascular disease, noninsulin-dependent diabetes mellitus, hypercholesterolemia. Patient states that he has been experiencing progressive weakness to the point where he was unable to ambulate and had noticed intermittent tarry stools for the past 1 week, and on the day of admission he went to see his primary care physician for an evaluation and on questioning he does give history of coffee-ground emesis on a couple of occasions while he was at home and also on the day of admission. Patient was transferred by paramedics to the hospital, was found to be anemic and had an elevated INR of 8.14. Patient received fresh frozen plasma and apparently also had vitamin K in the emergency room and has been receiving packed cells. Patient denies having chest pain or discomfort either at rest or with exertion. No history of dyspnea, paroxysmal nocturnal dyspnea or orthopnea. No history of palpitations. No history of lightheadedness or vertigo. No history of presyncope or syncope. On questioning, he states his appetite has been fair. He has had no abdominal or epigastric pain or discomfort. PAST HISTORY: 1. As mentioned in the history of present illness. 2. History of cerebrovascular event without residual sequelae around the age of 57. SURGICAL HISTORY: 1. Status post CABG. 2. Status post mechanical aortic valve replacement. 3. Status post tonsillectomy. SOCIAL HISTORY: Retired, , has a son and a daughter who are healthy. He smoked from his teenage years and stopped at the time of his cerebrovascular accident at age 57. He used to have a regular drink, but stopped 20 years ago. There is no history of drug use and he has 1 cup of coffee. FAMILY HISTORY: Father of carcinoma of the rectum at the age of 62. Mother was known to have probable coronary artery disease and she at the age of 80 years. He has 1 sister who apparently related to coronary artery disease at age 72. ALLERGIES: None reported. MEDICATIONS: Current medicines are as follows: 1. Ceftriaxone 2 g IV daily. 2. Vancomycin 1000 mg IV daily. 3. Mupirocin 1 application b.i.d. 4. NovoLog insulin via sliding scale. 5. Ringer's lactate. 6. Chlorhexidine 1 application h.s. 7. Pantoprazole 80 mg IV daily. PRIOR MEDICATIONS: 1. Toprol XL 100 mg p.o. daily h.s. 2. Coumadin dose was being adjusted according to INR and had been on 7.5 + 7.5 + 5. 3. Vytorin 10/40 mg p.o. daily. 4. Metformin 1000 mg p.o. b.i.d. before meals. 5. Aspirin 81 mg p.o. daily. REVIEW OF SYSTEMS: Constitutional: No history of chills, fever or night sweats. No history of unintentional weight loss. HEENT: No history of headaches, diplopia or blurred vision. No history of epistaxis, hoarseness, tinnitus or deafness. Cardiovascular: See history of present illness. Respiratory: No history of cough, expectoration or hemoptysis. Gastrointestinal: See history of present illness. Neurological: See history of present illness. No history of recent focal weakness, presyncope or syncope. Genitourinary: History of nocturia 1 to 2 times. No history of hematuria. No history of dysuria. Endocrine: See history of present illness. No history of intolerance to cold or warm weather. Hematological: History of anemia related to bleeding. No history of lymphadenopathy. PHYSICAL EXAMINATION: General: A 79-year-old alert male, was in no acute distress. There was pallor. No cyanosis, clubbing or jaundice. Vital Signs: Blood pressure 113/44 mmHg, pulse 97 beats per minute and regular, temperature 97.4 degrees Fahrenheit, respirations 19 per minute. Weight on admission was 104.508 kg. Oxygen saturation was 97% on nasal cannula at 3 L. Neck: Supple. No jugular venous distention. Carotids were 2+. Upstrokes were normal. There was radiation of murmur especially in the right carotid. No clear-cut bruits were heard. There was no thyromegaly. Heart: PMI was in the 5th intercostal space. Jerauld prosthetic sounds. Grade 2/6 ejection systolic murmur was heard at the 2nd right intercostal space and along the left sternal border. No diastolic murmur or gallops were heard. Lungs: Clear on auscultation. Abdomen: Obese, soft and nontender. No hepatosplenomegaly. No palpable masses. Bowel sounds are present. No bruits were heard. Extremities: No calf tenderness or dependent edema. Both feet were cold. Femoral pulses were 1 to 2+. Dorsalis pedis and posterior tibial pulses could not be palpated. LABORATORY: ECG is reported as follows: Normal sinus rhythm. Inferior infarct age indeterminate. Abnormal ECG. Compared to ECG of September 14, 2010, premature ventricular complexes are no longer present. Inverted T-waves have replaced nonspecific T-wave abnormalities in inferior leads. Nonspecific T-wave abnormalities now evident in the anterolateral leads. X-ray chest dated May 03, 2020: Single view of the chest reveals no significant change since October 21, 2011. There are clear lungs, sternal sutures, sclerotic aortic knob, normal hilum and normal heart. The angles are sharp. The bone and soft tissues are intact. An acute process is not seen. Laboratory Data: CBC May 03, 2020: WBCs 17,400. Hemoglobin was 7.6 g/dL, hematocrit 27.4%. Microcytic cell indices. Platelet count was 237,000. Slightly elevated neutrophils at 83.2. Lymphocytes were 8.9%. Monocytes were 7.6%. Eosinophils were 0. Basophils were 0.3%. Repeat CBC on May 04, 2020: WBC count 14,200, hemoglobin 7.3 g/dL, hematocrit 22.8%. Chemistry on May 04: Sodium 142, potassium 4.2, chloride 111, CO2 of 23 mmol/L. BUN was 93.5, creatinine 1.6 mg/dL. Random glucose was 183. Followup glucose at 11:47 was 224 mg/dL. Magnesium was 2.5 mg/dL. Calcium was 8.6 mg/dL, phosphorus 3.6 mg/dL. CK on admission was 318. Troponin was 0.02. INR on admission was 8.14. Repeat INR was 1.53. IMPRESSION: 1. Clinical presentation consistent with upper gastrointestinal bleeding, etiology to be determined. 2. Anemia secondary to No. 1. 3. Coronary artery disease, status post coronary artery bypass grafting. 4. Status post mechanical aortic valve replacement. 5. Noninsulin-dependent diabetes mellitus. 6. Hypercholesterolemia. 7. Chronic kidney disease. ADDENDUM: Echocardiogram was seen while being performed. LV function grossly appears to be normal. Mechanical aortic valve was not well visualized, but grossly appears to be well seated. The mean transvalvular gradient was approximately 33 mmHg. There was calcification involving the mitral annulus and the mitral leaflets appeared thickened. Detailed report is pending. RECOMMENDATION: 1. Patient is at a high risk for cardiopulmonary complications because of underlying comorbid conditions, but there appears to be no absolute contraindication to the contemplated procedure under close cardiopulmonary monitoring. 2. Follow up CBC. 3. Follow up ECG and cardiac enzymes. 4. Anticoagulation must be resumed as soon as possible in the presence of old aortic valve mechanical prosthesis. PROGNOSIS: Critical. Time spent in the CCU 11:15 a.m. to 1:41 p.m. Thank you for your referral. Yours sincerely, VIDHYA GREENFIELD M.D. [id number]
--- NOTE | 2020-05-04 16:06 | PN ---
Progress Note (short form) - Note Progress Note: EGD complete. report will be left in the procedural section of the physical chart and will also be scanned into [employer] Problem List - Problems (1) Upper GI bleed Code(s): K92.2 - GASTROINTESTINAL HEMORRHAGE, UNSPECIFIED
[2020-05-04] MEDS ORDERED: EPHEDRINE SULFATE/0.9% NACL/PF 50 MG/10 ML SYRINGE NR ONE (16:11)
[2020-05-04 16:31] LABS: HEMATOCRIT 28.9 % (35.4-49); HEMOGLOBIN 9.1 GM/dL (11.7-16.9); MCHC 31.6 g/dl (32.0-35.9); MEAN CELL VOLUME 85.5 fl (80-96); MEAN PLT VOLUME 8.8 fl (7.5-11.1); PLATELET COUNT 185 K/MM3 (134-434); RBC 3.38 M/mm3 (4.00-5.60); RDW 19.8 % (11.9-15.9); WHITE BLOOD COUNT 14.8 K/mm3 (4.0-10.0)
[2020-05-04] MEDS ORDERED: BISACODYL 5 MG TABLET.DR (FP) PO ONE (17:00)
[2020-05-04] MEDS ORDERED: HEPARIN NA (PORCINE) 5,000 UNITS/ML 1ML VIAL IVPUSH PRN ×2 (17:32→17:33)
[2020-05-04] MEDS ORDERED: PEG 3350/NA SULF BICARB CL/KCL 4000 ML SOLN.RECON PO ONE (18:00)
[2020-05-04 18:31] LABS: URINE APPEARANCE CLEAR; URINE BILIRUBIN NEGATIVE (NEGATIVE); URINE COLOR YELLOW; URINE GLUCOSE (UA) 3+ (NEGATIVE); URINE KETONE NEGATIVE (NEGATIVE); URINE LEUK ESTERASE NEGATIVE (NEGATIVE); URINE NITRITE NEGATIVE (NEGATIVE); URINE PROTEIN NEGATIVE (NEGATIVE); URINE UROBILINOGEN 0.2 mg/dL (0.2-1.0)
[2020-05-04] MEDS: CHLORHEXIDINE GLUCONATE 4% CLEANSER FOR DECOLONIZATION TP SCH ×2 (20:08→22:11)
[2020-05-04] MEDS: HEPARIN SOD,PORK IN 0.45% NACL 25,000 UNIT/500 ML INFUS.BAG IVPB SCH (20:10)
[2020-05-04] MEDS: LACTATED RINGERS SOLUTION 1,000 ML/1,000 ML INFUS.BAG IV SCH (20:47)
[2020-05-04] MEDS: METOPROLOL TARTRATE 25 MG TABLET (FP) PO SCH (22:11)
[2020-05-05] MEDS: PANTOPRAZOLE SODIUM 80 MG in SODIUM CHLORIDE 100 ML IVPB SCH ×2 (01:47→11:31)
[2020-05-05 01:59] LABS: BASO % 0.1 % (0-2.0); EOS % 0.1 % (0-4.5); HEMATOCRIT 26.3 % (35.4-49); HEMOGLOBIN 8.4 GM/dL (11.7-16.9); LYMPH % 5.8 % (8-40); MCH 26.8 pg (25.7-33.7); MEAN CELL VOLUME 83.6 fl (80-96); MEAN PLT VOLUME 8.1 fl (7.5-11.1); MONO % 10.4 % (3.8-10.2); NEUT % 83.6 % (42.8-82.8); PLATELET COUNT 198 K/MM3 (134-434); RBC 3.15 M/mm3 (4.00-5.60); RDW 19.5 % (11.9-15.9); WHITE BLOOD COUNT 15.5 K/mm3 (4.0-10.0)
[2020-05-05 02:06] LABS: INR 1.23 (0.83-1.09); PROTHROMBIN TIME (PATIENT) 14.6 SEC (9.7-13.0)
[2020-05-05 02:28] LABS: BILIRUBIN,TOTAL 0.4 mg/dL (0.2-1); CALCIUM 8.4 mg/dL (8.5-10.1); CREATININE 1.2 mg/dL (0.55-1.3); MAGNESIUM 2.5 mg/dL (1.8-2.4); PHOSPHOROUS 2.5 mg/dL (2.5-4.9); POTASSIUM 3.4 mmol/L (3.5-5.1); TOT PROT 5.7 g/dl (6.4-8.2)
[2020-05-05 02:30] LABS: BLOOD UREA NITROGEN 39.4 mg/dL (7-18)
[2020-05-05] MEDS: INSULIN SLIDING SCALE (NOVOLOG) 1 VIAL SQ SCH ×4 (06:45→22:18)
[2020-05-05 07:31] LABS: INR 1.15 (0.83-1.09); PROTHROMBIN TIME (PATIENT) 13.6 SEC (9.7-13.0)
[2020-05-05 07:34] LABS: ACTIVATED PTT 22.3 SECONDS (25.2-36.5)
[2020-05-05 07:40] LABS: POTASSIUM 3.2 mmol/L (3.5-5.1)
[2020-05-05 07:47] LABS: ALBUMIN 3.1 g/dl (3.4-5.0); BILIRUBIN,TOTAL 0.6 mg/dL (0.2-1); BLOOD UREA NITROGEN 34.9 mg/dL (7-18); CALCIUM 8.6 mg/dL (8.5-10.1); CREATININE 1.3 mg/dL (0.55-1.3); MAGNESIUM 2.6 mg/dL (1.8-2.4); PHOSPHOROUS 2.8 mg/dL (2.5-4.9)
[2020-05-05 08:05] LABS: HEMOGLOBIN 8.9 GM/dL (11.7-16.9); LYMPH % 7.6 % (8-40); MCH 26.6 pg (25.7-33.7); MCHC 31.7 g/dl (32.0-35.9); MEAN CELL VOLUME 83.9 fl (80-96); MEAN PLT VOLUME 8.6 fl (7.5-11.1); MONO % 10.2 % (3.8-10.2); NEUT % 82.2 % (42.8-82.8); PLATELET COUNT 229 K/MM3 (134-434); RBC 3.33 M/mm3 (4.00-5.60); RDW 19.7 % (11.9-15.9); WHITE BLOOD COUNT 19.6 K/mm3 (4.0-10.0)
--- NOTE | 2020-05-05 08:20 | PN ---
Progress Note, Physician History of Present Illness: for colonoscopy today - Current Medication List Current Medications: Active Medications Chlorhexidine Gluconate (Hibiclens For Decolonization -) 1 applic TP HS [facility] Last Admin: 05/04/20 22:11 Dose: 1 applic Documented by: Heparin Sodium (Porcine) (Heparin -) 5,000 unit IVPUSH PRN PRN PRN Reason: Heparin Heparin Sodium (Porcine) (Heparin -) 1,000 unit IVPUSH PRN PRN PRN Reason: Heparin Pantoprazole Sodium 80 mg/ (Sodium Chloride) 100 mls @ 10 mls/hr IVPB Q10H [facility] Stop: 05/06/20 17:49 Last Admin: 05/05/20 01:47 Dose: Not Given Documented by: Lactated Ringer's (Lactated Ringers Solution) 1,000 ml in 1,000 mls @ 75 mls/hr IV ASDIR [facility] Last Admin: 05/04/20 20:47 Dose: Not Given Documented by: Ceftriaxone Sodium 2 gm/ (Dextrose) 100 mls @ 100 mls/hr IVPB DAILY [facility]; Protocol Last Admin: 05/04/20 13:17 Dose: 100 mls/hr Documented by: HEPARIN SOD,PORK IN 0.45% NACL (Heparin-1/2ns 25,000 Units/500) 25,000 unit in 500 mls @ 16 mls/hr IVPB TITR [facility]; Protocol Last Titration: 05/05/20 01:25 Dose: 0 units/hr, 0 mls/hr Documented by: Potassium Chloride (Potassium Chloride 10 Meq Premix Ivpb -) 10 meq in 100 mls @ 100 mls/hr IVPB Q60M [facility] Stop: 05/05/20 10:59 Insulin Aspart (Novolog Vial Sliding Scale -) 1 vial SQ ACHS [facility]; Protocol Last Admin: 05/05/20 06:45 Dose: 6 unit Documented by: Metoprolol Tartrate (Lopressor -) 25 mg PO BID [facility] Last Admin: 05/04/20 22:11 Dose: 25 mg Documented by: Mupirocin (Bactroban Ointment (For Decolonization) -) 1 applic NS BID [facility] Stop: 05/08/20 21:59 Last Admin: 05/04/20 22:11 Dose: 1 applic Documented by: - Objective Vital Signs: Vital Signs Temperature 98.3 F 05/05/20 06:00 Pulse Rate 92 H 05/05/20 06:00 Respiratory Rate 18 05/05/20 06:00 Blood Pressure 114/42 L 05/05/20 06:00 O2 Sat by Pulse Oximetry (%) 94 L 05/05/20 06:00 Cardiovascular: Yes: Regular Rate and Rhythm, Murmur Respiratory: Yes: Regular, CTA Bilaterally Gastrointestinal: Yes: Normal Bowel Sounds, Soft. No: Tenderness Labs: CBC, BMP 05/05/20 06:00 INR, PTT INR 1.15 (0.83-1.09) H 05/05/20 06:20 Problem List - Problems (1) Upper gastrointestinal bleed Assessment/Plan: Transfuse PRBC if hgb less than 8 PPI GI consult NPO For Colonoscopy Code(s): K92.2 - GASTROINTESTINAL HEMORRHAGE, UNSPECIFIED (2) S/P AVR Assessment/Plan: hold coumadin follow levels closely Resume heparin drip once cleared by gi cardio appreciated Code(s): Z95.2 - PRESENCE OF PROSTHETIC HEART VALVE (3) Hypercoagulable state Code(s): D68.59 - OTHER PRIMARY THROMBOPHILIA (4) HTN (hypertension) Code(s): I10 - ESSENTIAL (PRIMARY) HYPERTENSION (5) Anemia Assessment/Plan: Transfuse PRBC Follow levels CBC WBC 14.2 K/mm3 (4.0-10.0) H 05/04/20 05:54 RBC 2.82 M/mm3 (4.00-5.60) L 05/04/20 05:54 Hgb 7.3 GM/dL (11.7-16.9) L 05/04/20 05:54 Hct 22.8 % (35.4-49) L 05/04/20 05:54 MCV 81.0 fl (80-96) 05/04/20 05:54 MCH 26.0 pg (25.7-33.7) 05/04/20 05:54 MCHC 32.1 g/dl (32.0-35.9) 05/04/20 05:54 RDW 18.2 % (11.9-15.9) H 05/04/20 05:54 Plt Count 197 K/MM3 (134-434) 05/04/20 05:54 MPV 8.1 fl (7.5-11.1) D 05/04/20 05:54 Absolute Neuts (auto) 10.8 K/mm3 (1.5-8.0) H 05/04/20 05:54 Neutrophils % 76.4 % (42.8-82.8) 05/04/20 05:54 Lymphocytes % 9.6 % (8-40) 05/04/20 05:54 Monocytes % 13.4 % (3.8-10.2) H 05/04/20 05:54 Eosinophils % 0.2 % (0-4.5) D 05/04/20 05:54 Basophils % 0.4 % (0-2.0) 05/04/20 05:54 Nucleated RBC % 0 % (0-0) 05/04/20 05:54 Code(s): D64.9 - ANEMIA, UNSPECIFIED (6) FITO (acute kidney injury) Assessment/Plan: Improving follow labs and repeat monitor I & O Renal consult Abnormal Lab Results 05/03/20 05/04/20 05/04/20 20:30 15:00 17:50 WBC 14.8 H RBC 3.38 L Hgb 9.1 L Hct 28.9 L D MCHC 31.6 L RDW 19.8 H Absolute Neuts (auto) Neutrophils % Lymphocytes % Monocytes % PT with INR INR PTT (Actin FS) Sodium Potassium Chloride Anion Gap BUN Random Glucose Lactic Acid Calcium Magnesium Alkaline Phosphatase Total Protein Albumin Urine Glucose (UA) 3+ H Ur Random Chloride Crossmatch See Detail 05/04/20 05/05/20 05/05/20 17:50 01:30 01:46 WBC 15.5 H RBC 3.15 L Hgb 8.4 L Hct 26.3 L MCHC RDW 19.5 H Absolute Neuts (auto) 13.0 H Neutrophils % 83.6 H Lymphocytes % 5.8 L D Monocytes % 10.4 H PT with INR INR PTT (Actin FS) 36.7 H Sodium Potassium Chloride Anion Gap BUN Random Glucose Lactic Acid Calcium Magnesium Alkaline Phosphatase Total Protein Albumin Urine Glucose (UA) Ur Random Chloride 52 L Crossmatch 05/05/20 05/05/20 05/05/20 01:46 01:46 06:00 WBC RBC Hgb Hct MCHC RDW Absolute Neuts (auto) Neutrophils % Lymphocytes % Monocytes % PT with INR 14.60 H INR 1.23 H PTT (Actin FS) Sodium 146 H 146 H Potassium 3.4 L 3.2 L Chloride 111 H 109 H Anion Gap 7 L BUN 39.4 H 34.9 H Random Glucose 238 H 242 H Lactic Acid Calcium 8.4 L Magnesium 2.5 H 2.6 H Alkaline Phosphatase 37 L 39 L Total Protein 5.7 L 6.0 L Albumin 3.0 L 3.1 L Urine Glucose (UA) Ur Random Chloride Crossmatch 05/05/20 05/05/20 05/05/20 06:00 06:20 06:20 WBC 19.6 H RBC 3.33 L Hgb 8.9 L Hct 28.0 L MCHC 31.7 L RDW 19.7 H Absolute Neuts (auto) 16.1 H Neutrophils % Lymphocytes % 7.6 L D Monocytes % PT with INR 13.60 H INR 1.15 H PTT (Actin FS) 22.3 L Sodium Potassium Chloride Anion Gap BUN Random Glucose Lactic Acid 3.3 H* Calcium Magnesium Alkaline Phosphatase Total Protein Albumin Urine Glucose (UA) Ur Random Chloride Crossmatch Code(s): N17.9 - ACUTE KIDNEY FAILURE, UNSPECIFIED (7) Leukocytosis Assessment/Plan: maybe reactive r/o sepsis cultures Microbiology 05/04/20 01:41 Urine - Urine Clean Catch Urine Culture - Final NO GROWTH OBTAINED 05/03/20 05:54 Blood - Peripheral Venous Blood Culture - Preliminary NO GROWTH OBTAINED AFTER 24 HOURS, INCUBATION TO CONTINUE FOR 4 DAYS. 05/03/20 05:38 Blood - Peripheral Venous Blood Culture - Preliminary NO GROWTH OBTAINED AFTER 24 HOURS, INCUBATION TO CONTINUE FOR 4 DAYS. ceftriaxone id consult appreciated lactic acid 5.5--2.7--3.3 Code(s): D72.829 - ELEVATED WHITE BLOOD CELL COUNT, UNSPECIFIED
[2020-05-05] MEDS: KCL 10 MEQ IVPB 10 MEQ/100 ML INFUS.BAG IVPB SCH ×3 (08:41→10:55)
[2020-05-05] MEDS ORDERED: DEXTROSE 5%-WATER 100 ML IVPB ONE (09:08)
[2020-05-05] MEDS: CEFTRIAXONE 2 GM in DEXTROSE 5%-WATER 100 ML IVPB SCH (09:16)
[2020-05-05] MEDS: MUPIROCIN 2% TOPICAL OINTMENT FOR DECOLONIZATION NS SCH ×2 (09:16→22:06)
[2020-05-05] MEDS: METOPROLOL TARTRATE 25 MG TABLET (FP) PO SCH (09:18)
[2020-05-05] MEDS: LACTATED RINGERS SOLUTION 1,000 ML/1,000 ML INFUS.BAG IV SCH ×2 (09:19→22:06)
[2020-05-05] MEDS ORDERED: PT OWN MED DRAWER 7, Y5N ONE (10:42)
--- NOTE | 2020-05-05 11:18 | PN ---
Teaching Attending Note Name of Resident: Loulou Mcgregor ATTENDING PHYSICIAN STATEMENT I saw and evaluated the patient. I reviewed the resident's note and discussed the case with the resident. I agree with the resident's findings and plan as documented. SUBJECTIVE: Pt seen and examined in the ICU. Dark stools overnight. s/p EGD showing gastrit is. No abdominal pain, nausea, shortness of breath or chest pain. OBJECTIVE: Vital Signs Period Temp Pulse Resp BP Sys/Rutherford Pulse Ox Last 24 Hr 98 F-98.3 F 84-110 15-22 85-137/39-55 92-99 Intake & Output 05/02/20 05/03/20 05/04/20 05/05/20 23:59 23:59 23:59 23:59 Intake Total 1255 3276 Output Total 600 1180 Balance 655 2096 Weight 102.058 kg 104.508 kg 107.075 kg Gen: NAD at rest Heart: RRR Lung: decreased breath sounds at the bases Abd: soft, nontender Ext: no edema CBC, BMP 05/05/20 06:20 05/05/20 06:00 Active Medications Chlorhexidine Gluconate (Hibiclens For Decolonization -) 1 applic TP HS [facility] Last Admin: 05/04/20 22:11 Dose: 1 applic Documented by: Heparin Sodium (Porcine) (Heparin -) 5,000 unit IVPUSH PRN PRN PRN Reason: Heparin Heparin Sodium (Porcine) (Heparin -) 1,000 unit IVPUSH PRN PRN PRN Reason: Heparin Pantoprazole Sodium 80 mg/ (Sodium Chloride) 100 mls @ 10 mls/hr IVPB Q10H [facility] Stop: 05/06/20 17:49 Last Admin: 05/05/20 11:31 Dose: 10 mls/hr Documented by: Lactated Ringer's (Lactated Ringers Solution) 1,000 ml in 1,000 mls @ 75 mls/hr IV ASDIR [facility] Last Admin: 05/05/20 09:19 Dose: 75 mls/hr Documented by: Ceftriaxone Sodium 2 gm/ (Dextrose) 100 mls @ 100 mls/hr IVPB DAILY [facility]; Protocol Last Admin: 05/05/20 09:16 Dose: 100 mls/hr Documented by: HEPARIN SOD,PORK IN 0.45% NACL (Heparin-1/2ns 25,000 Units/500) 25,000 unit in 500 mls @ 16 mls/hr IVPB TITR [facility]; Protocol Last Titration: 05/05/20 01:25 Dose: 0 units/hr, 0 mls/hr Documented by: Insulin Aspart (Novolog Vial Sliding Scale -) 1 vial SQ ACHS [facility]; Protocol Last Admin: 05/05/20 11:33 Dose: 4 unit Documented by: Metoprolol Tartrate (Lopressor -) 25 mg PO BID [facility] Last Admin: 05/05/20 09:18 Dose: 25 mg Documented by: Mupirocin (Bactroban Ointment (For Decolonization) -) 1 applic NS BID [facility] Stop: 05/08/20 21:59 Last Admin: 05/05/20 09:16 Dose: 1 applic Documented by: ASSESSMENT AND PLAN: GI Bleed Acute Blood Loss Anemia Supratherapeutic INR Mechanical /AVR HTN DM Hyperlipidemia - for colonoscopy today - monitor H/H - transfuse as needed - resume anticoagulation after colonoscopy - protonix - replete lytes - DVT prophylaxis
--- NOTE | 2020-05-05 12:58 | PN ---
Progress Note, Physician History of Present Illness: Pt seen and examined at bedside. He is awake and alert. He denies shortness of breath. - Current Medication List Current Medications: Active Medications Chlorhexidine Gluconate (Hibiclens For Decolonization -) 1 applic TP HS [facility] Last Admin: 05/04/20 22:11 Dose: 1 applic Documented by: Heparin Sodium (Porcine) (Heparin -) 5,000 unit IVPUSH PRN PRN PRN Reason: Heparin Heparin Sodium (Porcine) (Heparin -) 1,000 unit IVPUSH PRN PRN PRN Reason: Heparin Pantoprazole Sodium 80 mg/ (Sodium Chloride) 100 mls @ 10 mls/hr IVPB Q10H [facility] Stop: 05/06/20 17:49 Last Admin: 05/05/20 11:31 Dose: 10 mls/hr Documented by: Lactated Ringer's (Lactated Ringers Solution) 1,000 ml in 1,000 mls @ 75 mls/hr IV ASDIR [facility] Last Admin: 05/05/20 09:19 Dose: 75 mls/hr Documented by: Ceftriaxone Sodium 2 gm/ (Dextrose) 100 mls @ 100 mls/hr IVPB DAILY [facility]; Protocol Last Admin: 05/05/20 09:16 Dose: 100 mls/hr Documented by: HEPARIN SOD,PORK IN 0.45% NACL (Heparin-1/2ns 25,000 Units/500) 25,000 unit in 500 mls @ 16 mls/hr IVPB TITR [facility]; Protocol Last Titration: 05/05/20 01:25 Dose: 0 units/hr, 0 mls/hr Documented by: Insulin Aspart (Novolog Vial Sliding Scale -) 1 vial SQ ACHS [facility]; Protocol Last Admin: 05/05/20 11:33 Dose: 4 unit Documented by: Metoprolol Tartrate (Lopressor -) 25 mg PO BID [facility] Last Admin: 05/05/20 09:18 Dose: 25 mg Documented by: Mupirocin (Bactroban Ointment (For Decolonization) -) 1 applic NS BID [facility] Stop: 05/08/20 21:59 Last Admin: 05/05/20 09:16 Dose: 1 applic Documented by: - Objective Vital Signs: Vital Signs Temperature 98.5 F 05/05/20 10:00 Pulse Rate 86 07/29/20 10:00 Respiratory Rate 18 05/05/20 10:00 Blood Pressure 128/50 L 05/05/20 10:00 O2 Sat by Pulse Oximetry (%) 97 05/05/20 10:00 Constitutional: Yes: Calm Eyes: Yes: Conjunctiva Clear HENT: Yes: Atraumatic Neck: Yes: Supple Cardiovascular: Yes: S1, S2 Respiratory: Yes: CTA Bilaterally Gastrointestinal: Yes: Soft Genitourinary: Yes: WNL Musculoskeletal: Yes: WNL Edema: No Neurological: Yes: Oriented Psychiatric: Yes: Oriented Labs: CBC, BMP 05/05/20 06:20 05/05/20 06:00 INR, PTT INR 1.15 (0.83-1.09) H 05/05/20 06:20 Problem List - Problems (1) FITO (acute kidney injury) Code(s): N17.9 - ACUTE KIDNEY FAILURE, UNSPECIFIED (2) Anemia Code(s): D64.9 - ANEMIA, UNSPECIFIED Assessment/Plan Current Medications Generic Name Dose Route Start Last Admin Trade Name Freq PRN Reason Stop Dose Admin Chlorhexidine Gluconate 1 applic 05/03/20 22:00 05/04/20 22:11 Hibiclens For Decolonization - TP 1 applic HS [facility] Administration Heparin Sodium (Porcine) 5,000 unit 05/04/20 17:32 Heparin - IVPUSH PRN PRN Heparin Heparin Sodium (Porcine) 1,000 unit 05/04/20 17:33 Heparin - IVPUSH PRN PRN Heparin Pantoprazole Sodium 80 mg/ 100 mls @ 10 mls/hr 05/03/20 18:00 05/05/20 11:31 Sodium Chloride IVPB 05/06/20 17:49 10 mls/hr Q10H [facility] Administration 8 MG/HR Lactated Ringer's 1,000 ml in 1,000 mls @ 75 mls/hr 05/03/20 20:45 05/05/20 09:19 Lactated Ringers Solution IV 75 mls/hr ASDIR [facility] Administration Ceftriaxone Sodium 2 gm/ 100 mls @ 100 mls/hr 05/04/20 13:00 05/05/20 09:16 Dextrose IVPB 100 mls/hr DAILY [facility] Administration Protocol HEPARIN SOD,PORK IN 0.45% NACL 25,000 unit in 500 mls @ 16 mls/hr 05/04/20 17:15 05/05/20 01:25 Heparin-1/2ns 25,000 Units/500 IVPB 0 units/hr TITR [facility] 0 mls/hr Titration Protocol 800 UNITS/HR Insulin Aspart 1 vial 05/03/20 22:00 05/05/20 11:33 Novolog Vial Sliding Scale - SQ 4 unit ACHS [facility] Administration Protocol Metoprolol Tartrate 25 mg 05/04/20 22:00 05/05/20 09:18 Lopressor - PO 25 mg BID [facility] Administration Mupirocin 1 applic 05/03/20 22:00 05/05/20 09:16 Bactroban Ointment (For Decolonization) - NS 05/08/20 21:59 1 applic BID [facility] Administration Laboratory Tests 05/04/20 17:50 Urine Protein Negative Urine Blood Negative Impressin 1. FITO 2. anemia 3. supratherapeutic INR 4. dm 5. htn 6. hld 7. lactic acidosis 8. hypokalemia Plan - cont to monitor ward nurse - replace potassium - check mag - GI workup in progress - ua negative for blood or protein - cont to trend ward nurse - renal ultrasound when stable - avoid nsaids - trend lactic acid
--- NOTE | 2020-05-05 13:28 | PN ---
Progress Note, Physician History of Present Illness: AWAKE, ALERT NO COMPLAINTS NO ABDOMINAL PAIN NO RECURRENT VOMITING BEING PREPPED FOR COLONOSCOPY AFEBRILE WBC INCREASED PERSISTANT LACTIC ACIDOSIS C/S NO GROWTH - Current Medication List Current Medications: Active Medications Chlorhexidine Gluconate (Hibiclens For Decolonization -) 1 applic TP HS [facility] Last Admin: 05/04/20 22:11 Dose: 1 applic Documented by: Heparin Sodium (Porcine) (Heparin -) 5,000 unit IVPUSH PRN PRN PRN Reason: Heparin Heparin Sodium (Porcine) (Heparin -) 1,000 unit IVPUSH PRN PRN PRN Reason: Heparin Pantoprazole Sodium 80 mg/ (Sodium Chloride) 100 mls @ 10 mls/hr IVPB Q10H [facility] Stop: 05/06/20 17:49 Last Admin: 05/05/20 11:31 Dose: 10 mls/hr Documented by: Lactated Ringer's (Lactated Ringers Solution) 1,000 ml in 1,000 mls @ 75 mls/hr IV ASDIR [facility] Last Admin: 05/05/20 09:19 Dose: 75 mls/hr Documented by: Ceftriaxone Sodium 2 gm/ (Dextrose) 100 mls @ 100 mls/hr IVPB DAILY [facility]; Protocol Last Admin: 05/05/20 09:16 Dose: 100 mls/hr Documented by: HEPARIN SOD,PORK IN 0.45% NACL (Heparin-1/2ns 25,000 Units/500) 25,000 unit in 500 mls @ 16 mls/hr IVPB TITR [facility]; Protocol Last Titration: 05/05/20 01:25 Dose: 0 units/hr, 0 mls/hr Documented by: Insulin Aspart (Novolog Vial Sliding Scale -) 1 vial SQ ACHS [facility]; Protocol Last Admin: 05/05/20 11:33 Dose: 4 unit Documented by: Metoprolol Tartrate (Lopressor -) 25 mg PO BID [facility] Last Admin: 05/05/20 09:18 Dose: 25 mg Documented by: Mupirocin (Bactroban Ointment (For Decolonization) -) 1 applic NS BID [facility] Stop: 05/08/20 21:59 Last Admin: 05/05/20 09:16 Dose: 1 applic Documented by: - Objective Vital Signs: Vital Signs Temperature 98.5 F 05/05/20 10:00 Pulse Rate 86 05/05/20 10:00 Respiratory Rate 18 05/05/20 10:00 Blood Pressure 128/50 L 05/05/20 10:00 O2 Sat by Pulse Oximetry (%) 97 05/05/20 10:00 Constitutional: Yes: No Distress Eyes: Yes: Conjunctiva Clear Cardiovascular: Yes: Regular Rate and Rhythm, S1, S2 Respiratory: Yes: CTA Bilaterally Gastrointestinal: Yes: Normal Bowel Sounds, Soft. No: Tenderness Edema: No Labs: CBC, BMP 05/05/20 06:20 05/05/20 06:00 INR, PTT INR 1.15 (0.83-1.09) H 05/05/20 06:20 Assessment/Plan GI BLEED S/P COAGULOPATHY LEUKOCYTOSIS ? LEUKEMOID RXN ? SEPSIS R/O ASPIRATION LACTIC ACIDOSIS S/P AVR CONTINUE CEFTRIAXONE FOR COLONOSCOPY
--- NOTE | 2020-05-05 13:37 | PN ---
Progress Note (short form) - Note Progress Note: Coverage for Dr. Betancourt cc: weakness, melena s: no chest pain, palps, dizziness, dyspnea Current Medications Generic Name Dose Route Start Last Admin Trade Name Freq PRN Reason Stop Dose Admin Chlorhexidine Gluconate 1 applic 05/03/20 22:00 05/04/20 22:11 Hibiclens For Decolonization - TP 1 applic HS NORMA Administration Heparin Sodium (Porcine) 5,000 unit 05/04/20 17:32 Heparin - IVPUSH PRN PRN Heparin Heparin Sodium (Porcine) 1,000 unit 05/04/20 17:33 Heparin - IVPUSH PRN PRN Heparin Pantoprazole Sodium 80 mg/ 100 mls @ 10 mls/hr 05/03/20 18:00 05/05/20 11:31 Sodium Chloride IVPB 05/06/20 17:49 10 mls/hr Q10H NORMA Administration 8 MG/HR Lactated Ringer's 1,000 ml in 1,000 mls @ 75 mls/hr 05/03/20 20:45 05/05/20 09:19 Lactated Ringers Solution IV 75 mls/hr ASDIR NORMA Administration Ceftriaxone Sodium 2 gm/ 100 mls @ 100 mls/hr 05/04/20 13:00 05/05/20 09:16 Dextrose IVPB 100 mls/hr DAILY NORMA Administration Protocol HEPARIN SOD,PORK IN 0.45% NACL 25,000 unit in 500 mls @ 16 mls/hr 05/04/20 17:15 05/05/20 01:25 Heparin-1/2ns 25,000 Units/500 IVPB 0 units/hr TITR NORMA 0 mls/hr Titration Protocol 800 UNITS/HR Insulin Aspart 1 vial 05/03/20 22:00 05/05/20 11:33 Novolog Vial Sliding Scale - SQ 4 unit ACHS NORMA Administration Protocol Metoprolol Tartrate 25 mg 05/04/20 22:00 05/05/20 09:18 Lopressor - PO 25 mg BID NORMA Administration Mupirocin 1 applic 05/03/20 22:00 05/05/20 09:16 Bactroban Ointment (For Decolonization) - NS 05/08/20 21:59 1 applic BID NORMA Administration Vital Signs Period Temp Pulse Resp BP Sys/Rutherford Pulse Ox Last 24 Hr 98 F-98.5 F 76-110 15-22 85-143/42-55 92-99 NAD no JVD rrr, nl s1, s2, 2/6 systolic murmur CTAB soft, nt, nd +bs no edema no jaundice, diaphoresis not agitated echo 04/2020 mild conc LVH, nl LV function, RV nl, severe MAC, 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
--- NOTE | 2020-05-05 14:04 | PN ---
Progress Note, Physician Chief Complaint: s/p EGD under generl anesthesia post op day one - Current Medication List Current Medications: Active Medications Chlorhexidine Gluconate (Hibiclens For Decolonization -) 1 applic TP HS [facility] Last Admin: 05/04/20 22:11 Dose: 1 applic Documented by: Heparin Sodium (Porcine) (Heparin -) 5,000 unit IVPUSH PRN PRN PRN Reason: Heparin Heparin Sodium (Porcine) (Heparin -) 1,000 unit IVPUSH PRN PRN PRN Reason: Heparin Pantoprazole Sodium 80 mg/ (Sodium Chloride) 100 mls @ 10 mls/hr IVPB Q10H [facility] Stop: 05/06/20 17:49 Last Admin: 05/05/20 11:31 Dose: 10 mls/hr Documented by: Lactated Ringer's (Lactated Ringers Solution) 1,000 ml in 1,000 mls @ 75 mls/hr IV ASDIR [facility] Last Admin: 05/05/20 09:19 Dose: 75 mls/hr Documented by: Ceftriaxone Sodium 2 gm/ (Dextrose) 100 mls @ 100 mls/hr IVPB DAILY [facility]; Protocol Last Admin: 05/05/20 09:16 Dose: 100 mls/hr Documented by: HEPARIN SOD,PORK IN 0.45% NACL (Heparin-1/2ns 25,000 Units/500) 25,000 unit in 500 mls @ 16 mls/hr IVPB TITR [facility]; Protocol Last Titration: 05/05/20 01:25 Dose: 0 units/hr, 0 mls/hr Documented by: Insulin Aspart (Novolog Vial Sliding Scale -) 1 vial SQ ACHS [facility]; Protocol Last Admin: 05/05/20 11:33 Dose: 4 unit Documented by: Metoprolol Tartrate (Lopressor -) 25 mg PO BID [facility] Last Admin: 05/05/20 09:18 Dose: 25 mg Documented by: Mupirocin (Bactroban Ointment (For Decolonization) -) 1 applic NS BID [facility] Stop: 05/08/20 21:59 Last Admin: 05/05/20 09:16 Dose: 1 applic Documented by: - Objective Vital Signs: Vital Signs Temperature 98.5 F 05/05/20 10:00 Pulse Rate 76 05/05/20 12:00 Respiratory Rate 18 05/05/20 12:00 Blood Pressure 143/47 L 05/05/20 12:00 O2 Sat by Pulse Oximetry (%) 97 05/05/20 10:00 Constitutional: Yes: Well Nourished Cardiovascular: Yes: WNL Respiratory: Yes: WNL Gastrointestinal: Yes: WNL Labs: CBC, BMP 05/05/20 06:20 05/05/20 06:00 INR, PTT INR 1.15 (0.83-1.09) H 05/05/20 06:20 Assessment/Plan No acute adverse effects of anesthesia, patient comfortable, dept of anesthesiology will sign off care at this time
[2020-05-05 14:59] VITALS: BMI 33.8
--- NOTE | 2020-05-05 15:54 | PN ---
Progress Note (short form) - Note Progress Note: GI brief colonoscopy note Colonoscopy findings: inadequate bowel prep - copious amount of stool no fresh blood noted sigmoid mass lesion not obstructing - biopsied / tattoo. diverticulosis REC: ct abd / pelvis / chest for staging surgery / onc evaluation serial h/h q12 resume a/c clear liquid diet see full report
--- NOTE | 2020-05-05 15:55 | PN ---
Physical Exam: SUBJECTIVE: Patient seen and examined. Pt had no complaints today. Overnight, pt had one episode of black tarry stool and heparin drip was subsequently stopped. Pt is going for colonoscopy today. Denied fevers, chills, chest pain, shortness of breath, abdominal pain, numbness or tingling. OBJECTIVE: Vital Signs Period Temp Pulse Resp BP Sys/Rutherford Pulse Ox Last 24 Hr 98 F-98.5 F 76-110 15-22 111-143/42-55 92-98 GENERAL: The patient is awake, alert, and fully oriented, in no acute distress. HEENT: NCAT, EOMI LUNGS: Breath sounds equal, clear to auscultation bilaterally, no wheezes HEART: Regular rate and rhythm, S1, S2 without murmur ABDOMEN: Soft, nontender, nondistended, normoactive bowel sounds EXTREMITIES: warm, well-perfused, no edema. SKIN: Warm, dry NEURO: Upper extremity strength 5/5 b/l, Lower extremity strength 5/5 b/l Laboratory Last Values WBC 19.6 K/mm3 (4.0-10.0) H 05/05/20 06:20 WBC Cancelled 05/05/20 06:20 Corrected WBC (auto) Cancelled 05/05/20 06:20 RBC 3.33 M/mm3 (4.00-5.60) L 05/05/20 06:20 RBC Cancelled 05/05/20 06:20 Hgb 8.9 GM/dL (11.7-16.9) L 05/05/20 06:20 Hgb Cancelled 05/05/20 06:20 Hct 28.0 % (35.4-49) L 05/05/20 06:20 Hct Cancelled 05/05/20 06:20 MCV 83.9 fl (80-96) 05/05/20 06:20 MCV Cancelled 05/05/20 06:20 MCH 26.6 pg (25.7-33.7) 05/05/20 06:20 MCH Cancelled 05/05/20 06:20 MCHC 31.7 g/dl (32.0-35.9) L 05/05/20 06:20 MCHC Cancelled 05/05/20 06:20 RDW 19.7 % (11.9-15.9) H 05/05/20 06:20 RDW Cancelled 05/05/20 06:20 Plt Count 229 K/MM3 (134-434) 05/05/20 06:20 Plt Count Cancelled 05/05/20 06:20 MPV 8.6 fl (7.5-11.1) 05/05/20 06:20 MPV Cancelled 05/05/20 06:20 Absolute Neuts (auto) 16.1 K/mm3 (1.5-8.0) H 05/05/20 06:20 Absolute Neuts (auto) Cancelled 05/05/20 06:20 Neutrophils % 82.2 % (42.8-82.8) 05/05/20 06:20 Neutrophils % Cancelled 05/05/20 06:20 Lymphocytes % 7.6 % (8-40) L D 05/05/20 06:20 Lymphocytes % Cancelled 05/05/20 06:20 Monocytes % 10.2 % (3.8-10.2) 05/05/20 06:20 Monocytes % Cancelled 05/05/20 06:20 Eosinophils % 0.0 % (0-4.5) D 05/05/20 06:20 Eosinophils % Cancelled 05/05/20 06:20 Basophils % 0.0 % (0-2.0) 05/05/20 06:20 Basophils % Cancelled 05/05/20 06:20 Nucleated RBC % 0 % (0-0) 05/05/20 06:20 Nucleated RBC % Cancelled 05/05/20 06:20 Platelet Estimate Cancelled 05/05/20 06:20 Platelet Comment Cancelled 05/05/20 06:20 PT with INR 13.60 SEC (9.7-13.0) H 05/05/20 06:20 INR 1.15 (0.83-1.09) H 05/05/20 06:20 PTT (Actin FS) 22.3 SECONDS (25.2-36.5) L 05/05/20 06:20 Sodium 146 mmol/L (136-145) H 05/05/20 06:00 Potassium 3.2 mmol/L (3.5-5.1) L 05/05/20 06:00 Chloride 109 mmol/L (98-107) H 05/05/20 06:00 Carbon Dioxide 27 mmol/L (21-32) 05/05/20 06:00 Anion Gap 10 MMOL/L (8-16) 05/05/20 06:00 BUN 34.9 mg/dL (7-18) H 05/05/20 06:00 Creatinine 1.3 mg/dL (0.55-1.3) 05/05/20 06:00 Est GFR (CKD-EPI)AfAm 61.00 05/05/20 06:00 Est GFR (CKD-EPI)NonAf 52.63 05/05/20 06:00 POC Glucometer 216 UNITS (80-120) 05/05/20 11:22 Random Glucose 242 mg/dL (74-106) H 05/05/20 06:00 Lactic Acid 3.3 mmol/L (0.4-2.0) H* 05/05/20 06:00 Calcium 8.6 mg/dL (8.5-10.1) 05/05/20 06:00 Phosphorus 2.8 mg/dL (2.5-4.9) 05/05/20 06:00 Magnesium 2.6 mg/dL (1.8-2.4) H 05/05/20 06:00 Iron 23 ug/dL (50-175) L 05/03/20 16:54 TIBC 368 ug/dL (250-450) 05/03/20 16:54 Iron Saturation 6 % (17.5-39) L 05/03/20 16:54 Unsaturated IBC 345 ug/dL (200-275) H 05/03/20 16:54 Ferritin 15.9 ng/ml (8-388) 05/03/20 16:54 Total Bilirubin 0.6 mg/dL (0.2-1) 05/05/20 06:00 AST 29 U/L (15-37) 05/05/20 06:00 ALT 24 U/L (13-61) 05/05/20 06:00 Alkaline Phosphatase 39 U/L (45-117) L 05/05/20 06:00 Creatine Kinase 318 U/L (26-308) H 05/04/20 05:38 Creatine Kinase Index 2.3 % (0.0-5.0) 05/04/20 05:38 CK-MB (CK-2) 7.6 ng/mL (0.5-3.6) H 05/04/20 05:38 Troponin I 0.02 ng/ml (0.00-0.05) 05/04/20 05:38 Total Protein 6.0 g/dl (6.4-8.2) L 05/05/20 06:00 Albumin 3.1 g/dl (3.4-5.0) L 05/05/20 06:00 Lipase 212 U/L (73-393) 05/04/20 05:54 Urine Color Yellow 05/04/20 17:50 Urine Appearance Clear 05/04/20 17:50 Urine pH 5.0 (5.0-8.0) 05/04/20 17:50 Ur Specific [place] 1.020 (1.010-1.035) 05/04/20 17:50 Urine Protein Negative (NEGATIVE) 05/04/20 17:50 Urine Glucose (UA) 3+ (NEGATIVE) H 05/04/20 17:50 Urine Ketones Negative (NEGATIVE) 05/04/20 17:50 Urine Blood Negative (NEGATIVE) 05/04/20 17:50 Urine Nitrite Negative (NEGATIVE) 05/04/20 17:50 Urine Bilirubin Negative (NEGATIVE) 05/04/20 17:50 Urine Urobilinogen 0.2 mg/dL (0.2-1.0) 05/04/20 17:50 Ur Leukocyte Esterase Negative (NEGATIVE) 05/04/20 17:50 Ur Random Creatinine 42.0 mg/dL (30-150) 05/04/20 17:50 Ur Random Sodium 40 MMOL/L (40-220) 05/04/20 17:50 Ur Random Potassium 37.0 MMOL/L (25-125) 05/04/20 17:50 Ur Random Chloride 52 MMOL/L (110-250) L 05/04/20 17:50 Stool Occult Blood Positive (NEGATIVE) 05/05/20 01:46 COVID-19 (DESI) Not detected (Not Detected) 05/03/20 20:30 Blood Type A NEGATIVE 05/03/20 20:30 Antibody Screen Negative 05/03/20 20:30 Crossmatch See Detail 05/03/20 20:30 Active Medications Chlorhexidine Gluconate (Hibiclens For Decolonization -) 1 applic TP HS [facility] Last Admin: 05/04/20 22:11 Dose: 1 applic Documented by: Heparin Sodium (Porcine) (Heparin -) 5,000 unit IVPUSH PRN PRN PRN Reason: Heparin Heparin Sodium (Porcine) (Heparin -) 1,000 unit IVPUSH PRN PRN PRN Reason: Heparin Pantoprazole Sodium 80 mg/ (Sodium Chloride) 100 mls @ 10 mls/hr IVPB Q10H [facility] Stop: 05/06/20 17:49 Last Admin: 05/05/20 11:31 Dose: 10 mls/hr Documented by: Lactated Ringer's (Lactated Ringers Solution) 1,000 ml in 1,000 mls @ 75 mls/hr IV ASDIR [facility]MA Last Admin: 05/05/20 09:19 Dose: 75 mls/hr Documented by: Ceftriaxone Sodium 2 gm/ (Dextrose) 100 mls @ 100 mls/hr IVPB DAILY [facility]; Protocol Last Admin: 05/05/20 09:16 Dose: 100 mls/hr Documented by: HEPARIN SOD,PORK IN 0.45% NACL (Heparin-1/2ns 25,000 Units/500) 25,000 unit in 500 mls @ 16 mls/hr IVPB TITR [facility]; Protocol Last Titration: 05/05/20 01:25 Dose: 0 units/hr, 0 mls/hr Documented by: Insulin Aspart (Novolog Vial Sliding Scale -) 1 vial SQ ACHS [facility]; Protocol Last Admin: 05/05/20 11:33 Dose: 4 unit Documented by: Metoprolol Tartrate (Lopressor -) 25 mg PO BID [facility] Last Admin: 05/05/20 09:18 Dose: 25 mg Documented by: Mupirocin (Bactroban Ointment (For Decolonization) -) 1 applic NS BID [facility] Stop: 05/08/20 21:59 Last Admin: 05/05/20 09:16 Dose: 1 applic Documented by: ASSESSMENT/PLAN: 79 y.o male with PMH of aortic valve replacement ( in 2001) HTN, HLD, DM presents to the ED after having multiple episodes of hematemesis and was found to have a supratheraputic INR of 8.1. EGD done on 05/04 showed no bleeding and post op diagnosis was gastritis. Pt stated that he originally came in with weakness and that it has significantly improved today. Denied having episodes of hematemesis overnight. Pt had 1 episode of black tarry stool. Pt is going for colonoscopy today. #Neuro no acute issues -AAOx3 #Cardio history of HTN; HLD: AV replacement -cardio consulted. Dr. Burton covering for Dr. Betancourt. Hold aspirin in setting of GI bleed. Continue Lopressor. Resume warfarin when feasible. Resume home statin/ezetemibe. Cleared from cardiac standpoint to proceed to EGD/colonscopy. -transfuse to maintain Hgb >8 #GI Upper GI bleed -Start protonix 40 BID -GI consulted. EGD showed no upper GI bleed. Post-op diagnosis - gastritis. Colonoscopy results: inadequate prep, no fresh blood, diverticulosis present, non-obstructing sigmoid mass present. Heme/Onc and surgery consult placed. -follow ct abd/pelvis chest for staging #Pulmonary -saturating well on 2L NC, supplemental O2 to keep SpO2 >92% -monitor respiratory status closely given multiple episodes of hematemesis #Renal hyperkalemia, resolved -Cr 1.6 -K+ 4.0 -IVF -renal consulted. Recommended to continue monitor [employer], renal US when stable, avoid NSAIDs, trend lactic acid. #Endo DM -ISS + BGM #ID Leukocytosis r/o sepsis -Follow cultures -ID consulted. Recommended continue ceftriaxone. -lactate 5.5-->2.7-->3.3 #FEN -IVF- LR @ 75 -monitor electrolytes -Clear liquid diet #Ppx -GI: PPI -DVT: early ambulation Dispo: Continue to monitor in ICU. Visit type - Emergency Visit Emergency Visit: Yes ED Registration Date: 05/03/20 Care time: The patient presented to the Emergency Department on the above date and was hospitalized for further evaluation of their emergent condition. - New Patient This patient is new to me today: No - Critical Care Critical Care patient: Yes Total Critical Care Time (in minutes): 38 Critical Care Statement: The care of this patient involved high complexity decision making to prevent further life threatening deterioration of the patient's condition and/or to evaluate & treat vital organ system(s) failure or risk of failure. - Medication Review Med list reviewed for High Risk Meds patients 65 and older: Yes ATTENDING PHYSICIAN STATEMENT I saw and evaluated the patient. I reviewed the resident's note and discussed the case with the resident. I agree with the resident's findings and plan as documented. SUBJECTIVE: OBJECTIVE: ASSESSMENT AND PLAN:
--- NOTE | 2020-05-05 17:00 | CONSULT ---
- Consultation REQUESTING PROVIDER: CONSULT REQUEST: We have been asked to surgically evaluate this patient for (specify). PCP:Andrea Rodriguez HISTORY OF PRESENT ILLNESS: PMHx: PSHx: Home Medications Medication Instructions Recorded Warfarin Na [Coumadin] 7.5 mg PO HS 11/17/13 Amlodipine Besylate/Benazepril 1 cap PO DAILY 10/27/17 [Lotrel 10-20 mg Capsule] Aspirin [ASA -] 81 mg PO DAILY 10/27/17 Ezetimibe/Simvastatin 1 each PO HS 10/27/17 [Ezetimibe-Simvastatin 10-40 mg] Glimepiride 4 mg PO BID 10/27/17 Hydrochlorothiazide 25 mg PO DAILY 10/27/17 Metoprolol Tartrate 100 mg PO BID 10/27/17 Sitagliptin Phos/Metformin HCl 1 each PO BID 10/27/17 [Janumet 50-1,000 mg Tablet] Warfarin Na [Coumadin] 5 mg PO HS 10/27/17 traMADol HCL [Ultram -] 50 mg PO Q12H #14 tablet MDD 400mg 10/27/17 Allergies Allergy/AdvReac Type Severity Reaction Status Date / Time No Known Allergies Allergy Verified 05/03/20 16:26 REVIEW OF SYSTEMS: CONSTITUTIONAL: Absent: fever, chills, diaphoresis, generalized weakness, malaise, loss of appetite, weight change CARDIOVASCULAR: Absent: chest pain, syncope, palpitations, irregular heart rate, lightheadedness, peripheral edema RESPIRATORY: Absent: cough, shortness of breath, dyspnea with exertion, wheezing, stridor, hemoptysis GASTROINTESTINAL: Absent: abdominal pain, abdominal distension, nausea, vomiting, diarrhea, constipation, melena, hematochezia GENITOURINARY: Absent: dysuria, frequency, urgency, hesitancy, hematuria, flank pain, genital pain MUSCULOSKELETAL: Absent: myalgia, arthralgia, joint swelling, back pain, neck pain SKIN: Absent: rash, itching, pallor HEMATOLOGIC/IMMUNOLOGIC: Absent: easy bleeding, easy bruising, lymphadenopathy NEUROLOGIC: Absent: headache, focal weakness, paresthesias, dizziness, unsteady gait, seizure, mental status changes, bladder or bowel incontinence PSYCHIATRIC: Absent: anxiety, depression, suicidal or homicidal ideation, hallucinations. PHYSICAL EXAM: GENERAL: Awake, alert, and fully oriented, in no acute distress. HEAD: Normal with no signs of trauma. EYES: PERRL, sclera anicteric, conjunctiva clear. NECK: Normal ROM, supple without lymphadenopathy, JVD, or masses. LUNGS: Clear to auscultation bilat anteriorly. No wheezes, and no crackles. No accessory muscle use. HEART: Regular rate and rhythm. No murmurs ABDOMEN: Soft, nontender, not distended, normoactive bowel sounds, no guarding, no rebound, no masses. No organomegaly. MUSCULOSKELETAL: Normal ROM at all joints. No bony deformities or tenderness. No CVA tenderness. UPPER EXTREMITIES: 2+ pulses, warm, well-perfused. No cyanosis. Cap refill <2 seconds. No peripheral edema. LOWER EXTREMITIES: 2+ pulses, warm, well-perfused. No calf tenderness. No peripheral edema. NEUROLOGICAL: Normal speech, gait not observed. PSYCH: Cooperative. Good eye contact. Appropriate mood and affect. SKIN: Warm, dry, normal turgor, no rashes or lesions noted. Vital Signs Temperature 98.6 F 05/05/20 16:00 Pulse Rate 100 H 05/05/20 16:00 Respiratory Rate 18 05/05/20 16:00 Blood Pressure 154/58 L 05/05/20 16:00 O2 Sat by Pulse Oximetry (%) 97 05/05/20 16:00 Lab Results WBC 19.6 K/mm3 (4.0-10.0) H 05/05/20 06:20 WBC Cancelled 05/05/20 06:20 RBC 3.33 M/mm3 (4.00-5.60) L 05/05/20 06:20 RBC Cancelled 05/05/20 06:20 Hgb 8.9 GM/dL (11.7-16.9) L 05/05/20 06:20 Hgb Cancelled 05/05/20 06:20 Hct 28.0 % (35.4-49) L 05/05/20 06:20 Hct Cancelled 05/05/20 06:20 MCV 83.9 fl (80-96) 05/05/20 06:20 MCV Cancelled 05/05/20 06:20 MCHC 31.7 g/dl (32.0-35.9) L 05/05/20 06:20 MCHC Cancelled 05/05/20 06:20 RDW 19.7 % (11.9-15.9) H 05/05/20 06:20 RDW Cancelled 05/05/20 06:20 Plt Count 229 K/MM3 (134-434) 05/05/20 06:20 Plt Count Cancelled 05/05/20 06:20 INR 1.15 (0.83-1.09) H 05/05/20 06:20 Sodium 146 mmol/L (136-145) H 05/05/20 06:00 Potassium 3.2 mmol/L (3.5-5.1) L 05/05/20 06:00 Chloride 109 mmol/L (98-107) H 05/05/20 06:00 Carbon Dioxide 27 mmol/L (21-32) 05/05/20 06:00 Anion Gap 10 MMOL/L (8-16) 05/05/20 06:00 BUN 34.9 mg/dL (7-18) H 05/05/20 06:00 Creatinine 1.3 mg/dL (0.55-1.3) 05/05/20 06:00 Random Glucose 242 mg/dL (74-106) H 05/05/20 06:00 Calcium 8.6 mg/dL (8.5-10.1) 05/05/20 06:00 Blood Type A NEGATIVE 05/03/20 20:30 Antibody Screen Negative 05/03/20 20:30 IMP: LGIB w/colonoscopy findings reviewed. PLAN: Await bx. results; patient will ultimately need a sigmoid resection; will f/u Logan Stevens MD FACS
[2020-05-05 17:17] LABS: BASO % 0.2 % (0-2.0); HEMATOCRIT 26.2 % (35.4-49); HEMOGLOBIN 8.3 GM/dL (11.7-16.9); LYMPH % 5.9 % (8-40); MCH 26.7 pg (25.7-33.7); MCHC 31.8 g/dl (32.0-35.9); MEAN CELL VOLUME 83.8 fl (80-96); MEAN PLT VOLUME 8.5 fl (7.5-11.1); MONO % 9.9 % (3.8-10.2); PLATELET COUNT 193 K/MM3 (134-434); RBC 3.13 M/mm3 (4.00-5.60); RDW 19.6 % (11.9-15.9); WHITE BLOOD COUNT 14.7 K/mm3 (4.0-10.0)
[2020-05-05 17:47] LABS: BILIRUBIN,TOTAL 0.4 mg/dL (0.2-1); BLOOD UREA NITROGEN 27.9 mg/dL (7-18); CALCIUM 8.3 mg/dL (8.5-10.1); CREATININE 1.1 mg/dL (0.55-1.3); POTASSIUM 3.4 mmol/L (3.5-5.1); TOT PROT 5.7 g/dl (6.4-8.2)
[2020-05-05] MEDS ORDERED: POTASSIUM CHLORIDE TABS 20 MEQ TABLET.ER (FP) PO ONE (17:48)
[2020-05-05 17:49] LABS: BLOOD UREA NITROGEN 27.7 mg/dL (7-18); CALCIUM 8.4 mg/dL (8.5-10.1); CREATININE 1.1 mg/dL (0.55-1.3); POTASSIUM 3.4 mmol/L (3.5-5.1)
[2020-05-05] MEDS: HEPARIN SOD,PORK IN 0.45% NACL 25,000 UNIT/500 ML INFUS.BAG IVPB SCH (18:07)
[2020-05-05] MEDS ORDERED: HEPARIN NA (PORCINE) 5,000 UNITS/ML 1ML VIAL IVPUSH PRN ×2 (18:17)
[2020-05-05] MEDS: HEPARIN SOD,PORK IN 0.45% NACL 25,000 UNITS/500 ML INFUS.BAG IVPB SCH (18:30)
[2020-05-05] MEDS ORDERED: WARFARIN NA 5 MG TABLET PO SCH (19:00)
[2020-05-05 20:36] LABS: HEMATOCRIT 25.4 % (35.4-49); HEMOGLOBIN 7.9 GM/dL (11.7-16.9); MCH 26.3 pg (25.7-33.7); MCHC 31.2 g/dl (32.0-35.9); MEAN CELL VOLUME 84.5 fl (80-96); MEAN PLT VOLUME 8.7 fl (7.5-11.1); PLATELET COUNT 188 K/MM3 (134-434); RBC 3.01 M/mm3 (4.00-5.60); RDW 19.9 % (11.9-15.9); WHITE BLOOD COUNT 13.8 K/mm3 (4.0-10.0)
[2020-05-05] MEDS ORDERED: SODIUM CHLORIDE 500 ML IV STA (20:52)
[2020-05-05] MEDS ORDERED: EZETIMIBE 10 MG TABLET (FP) PO SCH (22:00)
[2020-05-05] MEDS ORDERED: ATORVASTATIN CA 20 MG TABLET (FP) PO SCH (22:00)
[2020-05-05] MEDS ORDERED: PATIENT'S OWN MEDICATION (NON-FORMULARY) (Ezetimibe/Simvastatin [Ezetimibe-Simvastatin 10- PO SCH (22:00)
[2020-05-05] MEDS: CHLORHEXIDINE GLUCONATE 4% CLEANSER FOR DECOLONIZATION TP SCH (22:07)
[2020-05-06 00:51] LABS: HEMATOCRIT 25.9 % (35.4-49); HEMOGLOBIN 8.1 GM/dL (11.7-16.9); MCH 26.5 pg (25.7-33.7); MCHC 31.4 g/dl (32.0-35.9); MEAN CELL VOLUME 84.4 fl (80-96); MEAN PLT VOLUME 8.6 fl (7.5-11.1); PLATELET COUNT 203 K/MM3 (134-434); RBC 3.06 M/mm3 (4.00-5.60); RDW 19.8 % (11.9-15.9); WHITE BLOOD COUNT 14.5 K/mm3 (4.0-10.0)
[2020-05-06 01:10] LABS: ACTIVATED PTT 42.1 SECONDS (25.2-36.5)
[2020-05-06] MEDS: METOPROLOL TARTRATE 25 MG TABLET (FP) PO SCH ×2 (04:08→10:43)
[2020-05-06] MEDS: INSULIN SLIDING SCALE (NOVOLOG) 1 VIAL SQ SCH ×3 (06:22→17:15)
[2020-05-06 07:26] LABS: BASO % 0.1 % (0-2.0); EOS % 0.1 % (0-4.5); HEMATOCRIT 25.9 % (35.4-49); HEMOGLOBIN 8.2 GM/dL (11.7-16.9); LYMPH % 8.2 % (8-40); MCH 26.4 pg (25.7-33.7); MCHC 31.6 g/dl (32.0-35.9); MEAN CELL VOLUME 83.6 fl (80-96); MEAN PLT VOLUME 8.6 fl (7.5-11.1); MONO % 12.7 % (3.8-10.2); NEUT % 78.9 % (42.8-82.8); PLATELET COUNT 192 K/MM3 (134-434); RDW 19.9 % (11.9-15.9); WHITE BLOOD COUNT 12.8 K/mm3 (4.0-10.0)
[2020-05-06 07:35] LABS: ACTIVATED PTT 57.4 SECONDS (25.2-36.5)
[2020-05-06 08:14] LABS: ALBUMIN 2.9 g/dl (3.4-5.0); BILIRUBIN,TOTAL 0.6 mg/dL (0.2-1); BLOOD UREA NITROGEN 20.8 mg/dL (7-18); CALCIUM 8.3 mg/dL (8.5-10.1); MAGNESIUM 2.5 mg/dL (1.8-2.4); PHOSPHOROUS 1.5 mg/dL (2.5-4.9); POTASSIUM 3.8 mmol/L (3.5-5.1); TOT PROT 5.5 g/dl (6.4-8.2)
[2020-05-06 08:18] LABS: CHOLESTEROL 109 mg/dL (50-200); HDL CHOLESTEROL 33 mg/dL (40-60); LDL CHOLESTEROL (ONLY SJRH) 49 mg/dL (5-100); TRIGLYCERIDES 134 mg/dL (0-150)
--- NOTE | 2020-05-06 08:18 | PN ---
Progress Note, Physician - Current Medication List Current Medications: Active Medications Aspirin (Asa -) 81 mg PO DAILY [facility] Atorvastatin Calcium (Lipitor -) 20 mg PO HS [facility] Last Admin: 05/05/20 22:08 Dose: 20 mg Documented by: Chlorhexidine Gluconate (Hibiclens For Decolonization -) 1 applic TP HS [facility] Last Admin: 05/05/20 22:07 Dose: 1 applic Documented by: Ezetimibe (Zetia -) 10 mg PO HS [facility] Last Admin: 05/05/20 22:07 Dose: 10 mg Documented by: Heparin Sodium (Porcine) (Heparin -) 1,000 unit IVPUSH PRN PRN PRN Reason: Heparin Heparin Sodium (Porcine) (Heparin -) 5,000 unit IVPUSH PRN PRN PRN Reason: Heparin Lactated Ringer's (Lactated Ringers Solution) 1,000 ml in 1,000 mls @ 75 mls/hr IV ASDIR [facility] Last Admin: 05/05/20 22:06 Dose: Not Given Documented by: Ceftriaxone Sodium 2 gm/ (Dextrose) 100 mls @ 100 mls/hr IVPB DAILY [facility]; Protocol Last Admin: 05/05/20 09:16 Dose: 100 mls/hr Documented by: HEPARIN SOD,PORK IN 0.45% NACL (Heparin-1/2ns 25,000 Units/500) 25,000 units in 500 mls @ 20 mls/hr IVPB TITR [facility]; Protocol Last Titration: 05/06/20 01:14 Dose: 1,100 units/hr, 22 mls/hr Documented by: Insulin Aspart (Novolog Vial Sliding Scale -) 1 vial SQ ACHS [facility]; Protocol Last Admin: 05/06/20 06:22 Dose: 4 unit Documented by: Metoprolol Tartrate (Lopressor -) 25 mg PO BID [facility] Last Admin: 05/06/20 04:08 Dose: Not Given Documented by: Mupirocin (Bactroban Ointment (For Decolonization) -) 1 applic NS BID [facility] Stop: 05/08/20 21:59 Last Admin: 05/05/20 22:06 Dose: 1 applic Documented by: Pantoprazole Sodium (Protonix Iv) 40 mg IVPUSH DAILY [facility] Warfarin Sodium (Coumadin -) 5 mg PO [email or web address] [facility] Last Admin: 05/05/20 18:58 Dose: 5 mg Documented by: Warfarin Sodium (Coumadin -) 7.5 mg PO [email or web address] [facility] - Objective Vital Signs: Vital Signs Temperature 98.8 F 05/06/20 06:00 Pulse Rate 98 H 05/06/20 06:00 Respiratory Rate 20 05/06/20 06:00 Blood Pressure 155/75 05/06/20 06:00 O2 Sat by Pulse Oximetry (%) 95 05/06/20 06:00 Cardiovascular: Yes: Regular Rate and Rhythm, Murmur Respiratory: Yes: Regular, CTA Bilaterally Gastrointestinal: Yes: Normal Bowel Sounds, Soft. No: Tenderness Labs: CBC, BMP 05/06/20 06:15 05/06/20 06:15 INR, PTT INR 1.15 (0.83-1.09) H 05/05/20 06:20 Problem List - Problems (1) Upper gastrointestinal bleed Assessment/Plan: Transfuse PRBC if hgb less than 8 PPI GI consult NPO For Colonoscopy Code(s): K92.2 - GASTROINTESTINAL HEMORRHAGE, UNSPECIFIED (2) S/P AVR Assessment/Plan: hold coumadin follow levels closely Resume heparin drip once cleared by gi cardio appreciated Code(s): Z95.2 - PRESENCE OF PROSTHETIC HEART VALVE (3) Hypercoagulable state Assessment/Plan: reverse INR to 2.5--now 1.5 monitor closely FFP and vitamon k given Code(s): D68.59 - OTHER PRIMARY THROMBOPHILIA (4) HTN (hypertension) Code(s): I10 - ESSENTIAL (PRIMARY) HYPERTENSION (5) Anemia Assessment/Plan: Follow levels Abnormal Lab Results 05/03/20 05/05/20 05/05/20 20:30 06:20 16:30 WBC 19.6 H RBC 3.33 L Hgb 8.9 L Hct 28.0 L MCHC 31.7 L RDW 19.7 H Absolute Neuts (auto) 16.1 H Neutrophils % Lymphocytes % 7.6 L D Monocytes % PTT (Actin FS) Sodium 148 H Potassium 3.4 L Chloride 112 H BUN 27.7 H Random Glucose 237 H Hemoglobin A1c % Calcium 8.4 L Phosphorus Magnesium Alkaline Phosphatase Total Protein Albumin Crossmatch See Detail 05/05/20 05/05/20 05/05/20 16:30 16:30 20:00 WBC 14.7 H 13.8 H RBC 3.13 L 3.01 L Hgb 8.3 L 7.9 L Hct 26.2 L 25.4 L MCHC 31.8 L 31.2 L RDW 19.6 H 19.9 H Absolute Neuts (auto) 12.3 H Neutrophils % 84.0 H Lymphocytes % 5.9 L D Monocytes % PTT (Actin FS) Sodium 147 H Potassium 3.4 L Chloride 112 H BUN 27.9 H Random Glucose 241 H Hemoglobin A1c % Calcium 8.3 L Phosphorus Magnesium Alkaline Phosphatase 39 L Total Protein 5.7 L Albumin 3.0 L Crossmatch 05/06/20 05/06/20 05/06/20 00:00 00:00 06:15 WBC 14.5 H RBC 3.06 L Hgb 8.1 L Hct 25.9 L MCHC 31.4 L RDW 19.8 H Absolute Neuts (auto) Neutrophils % Lymphocytes % Monocytes % PTT (Actin FS) 42.1 H 57.4 H Sodium Potassium Chloride BUN Random Glucose Hemoglobin A1c % Calcium Phosphorus Magnesium Alkaline Phosphatase Total Protein Albumin Crossmatch 05/06/20 05/06/20 05/06/20 06:15 06:15 06:15 WBC 12.8 H RBC 3.10 L Hgb 8.2 L Hct 25.9 L MCHC 31.6 L RDW 19.9 H Absolute Neuts (auto) 10.1 H Neutrophils % Lymphocytes % Monocytes % 12.7 H PTT (Actin FS) Sodium 148 H Potassium Chloride 112 H BUN 20.8 H Random Glucose 212 H Hemoglobin A1c % 7.8 H Calcium 8.3 L Phosphorus 1.5 L Magnesium 2.5 H Alkaline Phosphatase 40 L Total Protein 5.5 L Albumin 2.9 L Crossmatch Code(s): D64.9 - ANEMIA, UNSPECIFIED (6) FITO (acute kidney injury) Assessment/Plan: Improving follow labs and repeat monitor I & O Renal consult Code(s): N17.9 - ACUTE KIDNEY FAILURE, UNSPECIFIED (7) Leukocytosis Assessment/Plan: maybe reactive r/o sepsis cultures Microbiology 05/03/20 05:54 Blood - Peripheral Venous Blood Culture - Preliminary NO GROWTH OBTAINED AFTER 48 HOURS, INCUBATION TO CONTINUE FOR 3 DAYS. 05/03/20 05:38 Blood - Peripheral Venous Blood Culture - Preliminary NO GROWTH OBTAINED AFTER 48 HOURS, INCUBATION TO CONTINUE FOR 3 DAYS. 05/04/20 01:41 Urine - Urine Clean Catch Urine Culture - Final NO GROWTH OBTAINED ceftriaxone id consult appreciated lactic acid 5.5--2.7--3.3 Code(s): D72.829 - ELEVATED WHITE BLOOD CELL COUNT, UNSPECIFIED (8) Neoplasm of sigmoid, malignant Assessment/Plan: await biopsy results await ct scan results pt will need to have surgery done at tertiary center Code(s): C18.7 - MALIGNANT NEOPLASM OF SIGMOID COLON
[2020-05-06] MEDS ORDERED: DEXTROSE 5%-WATER 100 ML IVPB ONE (09:52)
[2020-05-06] MEDS ORDERED: ASPIRIN 81 MG CHEWABLE TABLETS PO SCH (10:00)
[2020-05-06] MEDS ORDERED: PANTOPRAZOLE SODIUM 40 MG VIAL IVPUSH SCH (10:00)
[2020-05-06] MEDS: MUPIROCIN 2% TOPICAL OINTMENT FOR DECOLONIZATION NS SCH (10:43)
[2020-05-06] MEDS: CEFTRIAXONE 2 GM in DEXTROSE 5%-WATER 100 ML IVPB SCH (10:43)
--- NOTE | 2020-05-06 11:01 | PN ---
Teaching Attending Note Name of Resident: Loulou Mcgregor ATTENDING PHYSICIAN STATEMENT I saw and evaluated the patient. I reviewed the resident's note and discussed the case with the resident. I agree with the resident's findings and plan as documented. SUBJECTIVE: Patient seen and examined in the ICU. Awake and alert. No CP or SOB. Denies abdominal pain. Noted to desaturate during sleep. Mass noted on endoscopic evaluation. Intake & Output 05/03/20 05/04/20 05/05/20 05/06/20 23:59 23:59 23:59 23:59 Intake Total 1255 3276 2190 1136 Output Total 600 1180 1400 400 Balance 655 2096 790 736 Weight 225 lb 230 lb 6.4 oz 236 lb 230 lb 9.656 oz Last Vital Signs Temp Pulse Resp BP Pulse Ox 98.8 F 98 H 19 132/53 L 94 L 05/06/20 06:00 05/06/20 08:00 05/06/20 08:00 05/06/20 08:00 05/06/20 08:00 Active Medications Aspirin (Asa -) 81 mg PO DAILY [facility] Last Admin: 05/06/20 10:43 Dose: 81 mg Documented by: Atorvastatin Calcium (Lipitor -) 20 mg PO HS [facility] Last Admin: 05/05/20 22:08 Dose: 20 mg Documented by: Chlorhexidine Gluconate (Hibiclens For Decolonization -) 1 applic TP HS [facility] Last Admin: 05/05/20 22:07 Dose: 1 applic Documented by: Ezetimibe (Zetia -) 10 mg PO HS [facility] Last Admin: 05/05/20 22:07 Dose: 10 mg Documented by: Heparin Sodium (Porcine) (Heparin -) 1,000 unit IVPUSH PRN PRN PRN Reason: Heparin Heparin Sodium (Porcine) (Heparin -) 5,000 unit IVPUSH PRN PRN PRN Reason: Heparin Ceftriaxone Sodium 2 gm/ (Dextrose) 100 mls @ 100 mls/hr IVPB DAILY [facility]; Protocol Last Admin: 05/06/20 10:43 Dose: 100 mls/hr Documented by: HEPARIN SOD,PORK IN 0.45% NACL (Heparin-1/2ns 25,000 Units/500) 25,000 units in 500 mls @ 20 mls/hr IVPB TITR [facility]; Protocol Last Titration: 05/06/20 01:14 Dose: 1,100 units/hr, 22 mls/hr Documented by: Insulin Aspart (Novolog Vial Sliding Scale -) 1 vial SQ ACHS [facility]; Protocol Last Admin: 05/06/20 06:22 Dose: 4 unit Documented by: Metoprolol Tartrate (Lopressor -) 25 mg PO BID [facility] Last Admin: 05/06/20 10:43 Dose: 25 mg Documented by: Mupirocin (Bactroban Ointment (For Decolonization) -) 1 applic NS BID [facility] Stop: 05/08/20 21:59 Last Admin: 05/06/20 10:43 Dose: 1 applic Documented by: Pantoprazole Sodium (Protonix Iv) 40 mg IVPUSH DAILY [facility] Last Admin: 05/06/20 10:43 Dose: 40 mg Documented by: Warfarin Sodium (Coumadin -) 5 mg PO [email or web address] [facility] Last Admin: 05/05/20 18:58 Dose: 5 mg Documented by: Warfarin Sodium (Coumadin -) 7.5 mg PO MoFr@1800 [facility] GENERAL: Awake, alert, and fully oriented, in no acute distress. EYES: PEERLA; EOMI; no scleral icterus NECK: no JVD; no lymphadenopathy LUNGS:diminished breath sounds at the bases; no rales/rhonchi or wheezing HEART: RRR s1; s2 systolic murmurs ABDOMEN: Soft, NT ND +BS in all 4 quadrants MUSCULOSKELETAL: Normal range of motion at all joints. No bony deformities or tenderness. No CVA tenderness. EXTREMITIES: warm; well-perfused no clubbing/cyanosis or edema NEUROLOGICAL: Non-focal PSYCHIATRIC: Cooperative. Good eye contact. Appropriate mood and affect. SKIN: Warm, dry, normal turgor, no rashes or lesions noted. Laboratory Results - last 24 hr 05/03/20 05/05/20 05/05/20 20:30 11:22 16:30 WBC RBC Hgb Hct MCV MCH MCHC RDW Plt Count MPV Absolute Neuts (auto) Neutrophils % Lymphocytes % Monocytes % Eosinophils % Basophils % Nucleated RBC % PTT (Actin FS) Sodium 148 H Potassium 3.4 L Chloride 112 H Carbon Dioxide 27 Anion Gap 8 BUN 27.7 H Creatinine 1.1 Est GFR (CKD-EPI)AfAm 74.65 Est GFR (CKD-EPI)NonAf 64.41 POC Glucometer 216 Random Glucose 237 H Hemoglobin A1c % Calcium 8.4 L Phosphorus Magnesium Total Bilirubin AST ALT Alkaline Phosphatase Total Protein Albumin Triglycerides Cholesterol Total LDL Cholesterol HDL Cholesterol Crossmatch See Detail 05/05/20 05/05/20 05/05/20 16:30 16:30 17:35 WBC 14.7 H RBC 3.13 L Hgb 8.3 L Hct 26.2 L MCV 83.8 MCH 26.7 MCHC 31.8 L RDW 19.6 H Plt Count 193 MPV 8.5 Absolute Neuts (auto) 12.3 H Neutrophils % 84.0 H Lymphocytes % 5.9 L D Monocytes % 9.9 Eosinophils % 0.0 Basophils % 0.2 D Nucleated RBC % 0 PTT (Actin FS) Sodium 147 H Potassium 3.4 L Chloride 112 H Carbon Dioxide 27 Anion Gap 8 BUN 27.9 H Creatinine 1.1 Est GFR (CKD-EPI)AfAm 74.65 Est GFR (CKD-EPI)NonAf 64.41 POC Glucometer 221 Random Glucose 241 H Hemoglobin A1c % Calcium 8.3 L Phosphorus Magnesium Total Bilirubin 0.4 AST 31 ALT 24 Alkaline Phosphatase 39 L Total Protein 5.7 L Albumin 3.0 L Triglycerides Cholesterol Total LDL Cholesterol HDL Cholesterol Crossmatch 05/05/20 05/05/20 05/06/20 20:00 22:16 00:00 WBC 13.8 H 14.5 H RBC 3.01 L 3.06 L Hgb 7.9 L 8.1 L Hct 25.4 L 25.9 L MCV 84.5 84.4 MCH 26.3 26.5 MCHC 31.2 L 31.4 L RDW 19.9 H 19.8 H Plt Count 188 203 MPV 8.7 8.6 Absolute Neuts (auto) Neutrophils % Lymphocytes % Monocytes % Eosinophils % Basophils % Nucleated RBC % PTT (Actin FS) Sodium Potassium Chloride Carbon Dioxide Anion Gap BUN Creatinine Est GFR (CKD-EPI)AfAm Est GFR (CKD-EPI)NonAf POC Glucometer 211 Random Glucose Hemoglobin A1c % Calcium Phosphorus Magnesium Total Bilirubin AST ALT Alkaline Phosphatase Total Protein Albumin Triglycerides Cholesterol Total LDL Cholesterol HDL Cholesterol Crossmatch 05/06/20 05/06/20 05/06/20 00:00 06:14 06:15 WBC RBC Hgb Hct MCV MCH MCHC RDW Plt Count MPV Absolute Neuts (auto) Neutrophils % Lymphocytes % Monocytes % Eosinophils % Basophils % Nucleated RBC % PTT (Actin FS) 42.1 H 57.4 H Sodium Potassium Chloride Carbon Dioxide Anion Gap BUN Creatinine Est GFR (CKD-EPI)AfAm Est GFR (CKD-EPI)NonAf POC Glucometer 207 Random Glucose Hemoglobin A1c % Calcium Phosphorus Magnesium Total Bilirubin AST ALT Alkaline Phosphatase Total Protein Albumin Triglycerides Cholesterol Total LDL Cholesterol HDL Cholesterol Crossmatch 05/06/20 05/06/20 05/06/20 06:15 06:15 06:15 WBC 12.8 H RBC 3.10 L Hgb 8.2 L Hct 25.9 L MCV 83.6 MCH 26.4 MCHC 31.6 L RDW 19.9 H Plt Count 192 MPV 8.6 Absolute Neuts (auto) 10.1 H Neutrophils % 78.9 Lymphocytes % 8.2 D Monocytes % 12.7 H Eosinophils % 0.1 D Basophils % 0.1 Nucleated RBC % 0 PTT (Actin FS) Sodium 148 H Potassium 3.8 Chloride 112 H Carbon Dioxide 28 Anion Gap 8 BUN 20.8 H Creatinine 1.0 Est GFR (CKD-EPI)AfAm 83.77 Est GFR (CKD-EPI)NonAf 72.28 POC Glucometer Random Glucose 212 H Hemoglobin A1c % Calcium 8.3 L Phosphorus 1.5 L Magnesium 2.5 H Total Bilirubin 0.6 AST 36 ALT 29 Alkaline Phosphatase 40 L Total Protein 5.5 L Albumin 2.9 L Triglycerides 134 Cholesterol 109 Total LDL Cholesterol 49 HDL Cholesterol 33 L Crossmatch 05/06/20 06:15 WBC RBC Hgb Hct MCV MCH MCHC RDW Plt Count MPV Absolute Neuts (auto) Neutrophils % Lymphocytes % Monocytes % Eosinophils % Basophils % Nucleated RBC % PTT (Actin FS) Sodium Potassium Chloride Carbon Dioxide Anion Gap BUN Creatinine Est GFR (CKD-EPI)AfAm Est GFR (CKD-EPI)NonAf POC Glucometer Random Glucose Hemoglobin A1c % 7.8 H Calcium Phosphorus Magnesium Total Bilirubin AST ALT Alkaline Phosphatase Total Protein Albumin Triglycerides Cholesterol Total LDL Cholesterol HDL Cholesterol Crossmatch Problem List - Problems (1) Upper gastrointestinal bleed Code(s): K92.2 - GASTROINTESTINAL HEMORRHAGE, UNSPECIFIED ASSESSMENT/PLAN: Suspected Acute GI bleeding Supratherapeutic INR HTN HPL DM AV replacement on Coumadin Anemia Likely OSAS Normal transfusion threshold : 8 gm Supplemental O2 as needed SCDs FFP PPI NPO Will need OSAS workup Dr Rodriguez KALYN Screen - KALYN History Previously diagnosed with Sleep Apnea: No If Yes, currently using CPAP to treat your KALYN: No - SNORING Do you snore loudly (enough to be heard thru closed doors)?: Yes - TIRED Do you often feel tired, fatigued, or sleepy during daytime?: Yes - OBSERVED Has anyone observed you stop breathing during your sleep?: Yes - BLOOD PRESSURE Do you have or are being treated for high blood pressure?: Yes - BMI Answer Y if weight exceeds amount listed for your height: Yes .: HEIGHT & WEIGHT (lbs): 410" 167lbs; 4" 175 lbs; 5'0" 179lbs;. 5'1" 185lbs; 5'2" 191lbs; 5'3" 197lbs;. 5'4" 204lbs; 55" 210lbs; 56" 216lbs;. 5'7" 223lbs; 58" 230lbs; 59" 237lbs;. 10" 243lbs; 11" 250lbs; 6' 258lbs;. 6'1" 265lbs; 6'2" 272lbs; 6'3" 279lbs;. 6'4" 287lbs; 6'5" 295lbs - AGE Is your age over 50 yrs old?: Yes - NECK CIRCUMFERENCE Neck Circumference 40cm: Yes - GENDER Male: Yes - SCORE Total Score: 8 Score Interpretation: High Risk of KALYN .: Interpretation: Score 0-2: Low Risk KALYN. Score 3-4: Intermediate Risk KALYN. Score 5-8: High Risk KALYN
--- NOTE | 2020-05-06 11:11 | PN ---
Physical Exam: SUBJECTIVE: Patient seen and examined. No acute overnight events. Has no complaints at this time. Denies fevers, chills, shortness of breath, chest pain, or abdominal pain. OBJECTIVE: Vital Signs Period Temp Pulse Resp BP Sys/Rutherford Pulse Ox Last 24 Hr 98.0 F-98.8 F 76-105 18-22 127-155/47-75 91-100 GENERAL: AAOx3, not in acute distress HEENT: NCAT, EOMI, on nasal cannula LUNGS: clear to auscultation b/l, no wheezes. HEART: Regular rate and rhythm, S1, S2 without murmur ABDOMEN: Obese. Soft, nontender, nondistended, bowel sounds present in all 4 quadrants. EXTREMITIES: warm, well-perfused, no edema. SKIN: Warm, dry NEURO: strength 5/5 in upper and lower extremities b/l. Laboratory Last Values WBC 12.8 K/mm3 (4.0-10.0) H 05/06/20 06:15 Corrected WBC (auto) Cancelled 05/05/20 06:20 RBC 3.10 M/mm3 (4.00-5.60) L 05/06/20 06:15 Hgb 8.2 GM/dL (11.7-16.9) L 05/06/20 06:15 Hct 25.9 % (35.4-49) L 05/06/20 06:15 MCV 83.6 fl (80-96) 05/06/20 06:15 MCH 26.4 pg (25.7-33.7) 05/06/20 06:15 MCHC 31.6 g/dl (32.0-35.9) L 05/06/20 06:15 RDW 19.9 % (11.9-15.9) H 05/06/20 06:15 Plt Count 192 K/MM3 (134-434) 05/06/20 06:15 MPV 8.6 fl (7.5-11.1) 05/06/20 06:15 Absolute Neuts (auto) 10.1 K/mm3 (1.5-8.0) H 05/06/20 06:15 Neutrophils % 78.9 % (42.8-82.8) 05/06/20 06:15 Lymphocytes % 8.2 % (8-40) D 05/06/20 06:15 Monocytes % 12.7 % (3.8-10.2) H 05/06/20 06:15 Eosinophils % 0.1 % (0-4.5) D 05/06/20 06:15 Basophils % 0.1 % (0-2.0) 05/06/20 06:15 Nucleated RBC % 0 % (0-0) 05/06/20 06:15 Platelet Estimate Cancelled 05/05/20 06:20 Platelet Comment Cancelled 05/05/20 06:20 PT with INR 15.10 SEC (9.7-13.0) H 05/06/20 00:00 INR 1.28 (0.83-1.09) H 05/06/20 00:00 PTT (Actin FS) 57.4 SECONDS (25.2-36.5) H 05/06/20 06:15 Sodium 148 mmol/L (136-145) H 05/06/20 06:15 Potassium 3.8 mmol/L (3.5-5.1) 05/06/20 06:15 Chloride 112 mmol/L (98-107) H 05/06/20 06:15 Carbon Dioxide 28 mmol/L (21-32) 05/06/20 06:15 Anion Gap 8 MMOL/L (8-16) 05/06/20 06:15 BUN 20.8 mg/dL (7-18) H 05/06/20 06:15 Creatinine 1.0 mg/dL (0.55-1.3) 05/06/20 06:15 Est GFR (CKD-EPI)AfAm 83.77 05/06/20 06:15 Est GFR (CKD-EPI)NonAf 72.28 05/06/20 06:15 POC Glucometer 207 UNITS (80-120) 05/06/20 06:14 Random Glucose 212 mg/dL (74-106) H 05/06/20 06:15 Hemoglobin A1c % 7.8 % (4.2-6.3) H 05/06/20 06:15 Lactic Acid 3.3 mmol/L (0.4-2.0) H* 05/05/20 06:00 Calcium 8.3 mg/dL (8.5-10.1) L 05/06/20 06:15 Phosphorus 1.5 mg/dL (2.5-4.9) L 05/06/20 06:15 Magnesium 2.5 mg/dL (1.8-2.4) H 05/06/20 06:15 Iron 23 ug/dL (50-175) L 05/03/20 16:54 TIBC 368 ug/dL (250-450) 05/03/20 16:54 Iron Saturation 6 % (17.5-39) L 05/03/20 16:54 Unsaturated IBC 345 ug/dL (200-275) H 05/03/20 16:54 Ferritin 15.9 ng/ml (8-388) 05/03/20 16:54 Total Bilirubin 0.6 mg/dL (0.2-1) 05/06/20 06:15 AST 36 U/L (15-37) 05/06/20 06:15 ALT 29 U/L (13-61) 05/06/20 06:15 Alkaline Phosphatase 40 U/L (45-117) L 05/06/20 06:15 Creatine Kinase 318 U/L (26-308) H 05/04/20 05:38 Creatine Kinase Index 2.3 % (0.0-5.0) 05/04/20 05:38 CK-MB (CK-2) 7.6 ng/mL (0.5-3.6) H 05/04/20 05:38 Troponin I 0.02 ng/ml (0.00-0.05) 05/04/20 05:38 Total Protein 5.5 g/dl (6.4-8.2) L 05/06/20 06:15 Albumin 2.9 g/dl (3.4-5.0) L 05/06/20 06:15 Triglycerides 134 mg/dL (0-150) 05/06/20 06:15 Cholesterol 109 mg/dL (50-200) 05/06/20 06:15 Total LDL Cholesterol 49 mg/dL (5-100) 05/06/20 06:15 HDL Cholesterol 33 mg/dL (40-60) L 05/06/20 06:15 Lipase 212 U/L (73-393) 05/04/20 05:54 Urine Color Yellow 05/04/20 17:50 Urine Appearance Clear 05/04/20 17:50 Urine pH 5.0 (5.0-8.0) 05/04/20 17:50 Ur Specific [place] 1.020 (1.010-1.035) 05/04/20 17:50 Urine Protein Negative (NEGATIVE) 05/04/20 17:50 Urine Glucose (UA) 3+ (NEGATIVE) H 05/04/20 17:50 Urine Ketones Negative (NEGATIVE) 05/04/20 17:50 Urine Blood Negative (NEGATIVE) 05/04/20 17:50 Urine Nitrite Negative (NEGATIVE) 05/04/20 17:50 Urine Bilirubin Negative (NEGATIVE) 05/04/20 17:50 Urine Urobilinogen 0.2 mg/dL (0.2-1.0) 05/04/20 17:50 Ur Leukocyte Esterase Negative (NEGATIVE) 05/04/20 17:50 Ur Random Creatinine 42.0 mg/dL (30-150) 05/04/20 17:50 Ur Random Sodium 40 MMOL/L (40-220) 05/04/20 17:50 Ur Random Potassium 37.0 MMOL/L (25-125) 05/04/20 17:50 Ur Random Chloride 52 MMOL/L (110-250) L 05/04/20 17:50 Stool Occult Blood Positive (NEGATIVE) 05/05/20 01:46 COVID-19 (DESI) Not detected (Not Detected) 05/03/20 20:30 Blood Type A NEGATIVE 05/03/20 20:30 Antibody Screen Negative 05/03/20 20:30 Crossmatch See Detail 05/03/20 20:30 Active Medications Aspirin (Asa -) 81 mg PO DAILY [facility] Last Admin: 05/06/20 10:43 Dose: 81 mg Documented by: Atorvastatin Calcium (Lipitor -) 20 mg PO HS [facility] Last Admin: 05/05/20 22:08 Dose: 20 mg Documented by: Chlorhexidine Gluconate (Hibiclens For Decolonization -) 1 applic TP HS [facility] Last Admin: 05/05/20 22:07 Dose: 1 applic Documented by: Ezetimibe (Zetia -) 10 mg PO HS [facility] Last Admin: 05/05/20 22:07 Dose: 10 mg Documented by: Heparin Sodium (Porcine) (Heparin -) 1,000 unit IVPUSH PRN PRN PRN Reason: Heparin Heparin Sodium (Porcine) (Heparin -) 5,000 unit IVPUSH PRN PRN PRN Reason: Heparin Ceftriaxone Sodium 2 gm/ (Dextrose) 100 mls @ 100 mls/hr IVPB DAILY [facility]; Protocol Last Admin: 05/06/20 10:43 Dose: 100 mls/hr Documented by: HEPARIN SOD,PORK IN 0.45% NACL (Heparin-1/2ns 25,000 Units/500) 25,000 units in 500 mls @ 20 mls/hr IVPB TITR [facility]; Protocol Last Titration: 05/06/20 01:14 Dose: 1,100 units/hr, 22 mls/hr Documented by: Insulin Aspart (Novolog Vial Sliding Scale -) 1 vial SQ ACHS [facility]; Protocol Last Admin: 05/06/20 06:22 Dose: 4 unit Documented by: Metoprolol Tartrate (Lopressor -) 25 mg PO BID [facility] Last Admin: 05/06/20 10:43 Dose: 25 mg Documented by: Mupirocin (Bactroban Ointment (For Decolonization) -) 1 applic NS BID [facility] Stop: 05/08/20 21:59 Last Admin: 05/06/20 10:43 Dose: 1 applic Documented by: Pantoprazole Sodium (Protonix Iv) 40 mg IVPUSH DAILY [facility] Last Admin: 05/06/20 10:43 Dose: 40 mg Documented by: Warfarin Sodium (Coumadin -) 5 mg PO [email or web address]@1800 [facility] Last Admin: 05/05/20 18:58 Dose: 5 mg Documented by: Warfarin Sodium (Coumadin -) 7.5 mg PO MoFr@1800 [facility] ASSESSMENT/PLAN: 79 y.o male with PMH of aortic valve replacement ( in 2001) HTN, HLD, DM presents to the ED after having multiple episodes of hematemesis and was found to have a supratheraputic INR of 8.1. EGD done on 05/04 showed no bleeding and post op diagnosis was gastritis. Colonoscopy results showed a non-obstructing sigmoid mass, no fresh blood. Pt has family history of colon cancer (father) and refused to do colonoscopy. Pt stated that father was mismanaged with his colon cancer and was concerned that the same would happen to him, thus did not follow up with colonoscopy. Positive cologuard 12/2019. Pt was scheduled for colonoscopy, but canceled it. #Neuro no acute issues -AAOx3 #Cardio history of HTN; HLD CAD s/p CABG, mechanical AVR -cardio consulted. Resumed coumadin on 05/05. On heparin drip, until INR therapeutic. Continue ASA, metoprolol, statin, ezitimibe. -transfuse to maintain Hgb >8 #GI Upper GI bleed -c/w protonix -GI consulted. EGD showed no upper GI bleed. Post-op diagnosis - gastritis. Colonoscopy results: inadequate prep, no fresh blood, diverticulosis present, non-obstructing sigmoid mass present. -Surgery consulted. Recommended ultimately surgical resection. 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 -Heme/onc consulted. Appreciate recommendations -CT abd/pelvis and chest showed mild enlargement of hilar lymph nodes, mild to moderate prostate enlargement, mild colonic distention, chronic L3 compression fracture. #Pulmonary Obstructive sleep apnea -saturating well on 2L NC, supplemental O2 to keep SpO2 >92% -aspiration precautions #Renal hyperkalemia, resolved FITO, resolved -renal consulted. Recommended to continue trend ADMINISTRATIVE VOLUNTEER, renal US when stable, avoid NSAIDs, trend lactic acid. Encourage free water intake, as sodium rising. #Endo DM -ISS + BGM #ID Leukocytosis r/o sepsis -Follow cultures -ID consulted. Recommended continue ceftriaxone. -lactate 5.5-->2.7-->3.3 #FEN -No fluids. -monitor electrolytes -Clear liquid diet #Ppx -GI: PPI -DVT: SCDs Dispo: Transfer to [facility] for surgical management. Visit type - Emergency Visit Emergency Visit: Yes ED Registration Date: 05/03/20 Care time: The patient presented to the Emergency Department on the above date and was hospitalized for further evaluation of their emergent condition. - New Patient This patient is new to me today: No - Critical Care Critical Care patient: Yes Total Critical Care Time (in minutes): 36 Critical Care Statement: The care of this patient involved high complexity decision making to prevent further life threatening deterioration of the patient's condition and/or to evaluate & treat vital organ system(s) failure or risk of failure. - Medication Review Med list reviewed for High Risk Meds patients 65 and older: Yes ATTENDING PHYSICIAN STATEMENT I saw and evaluated the patient. I reviewed the resident's note and discussed the case with the resident. I agree with the resident's findings and plan as documented. SUBJECTIVE: OBJECTIVE: ASSESSMENT AND PLAN:
[2020-05-06 11:17] LABS: INR 1.28 (0.83-1.09); PROTHROMBIN TIME (PATIENT) 15.1 SEC (9.7-13.0)
--- NOTE | 2020-05-06 11:18 | PN ---
Progress Note (short form) - Note Progress Note: Coverage for Dr. Betancourt cc: weakness, melena s: no chest pain, palps, dizziness, dyspnea Current Medications Generic Name Dose Route Start Last Admin Trade Name Freq PRN Reason Stop Dose Admin Aspirin 81 mg 05/06/20 10:00 05/06/20 10:43 Asa - PO 81 mg DAILY [facility] Administration Atorvastatin Calcium 20 mg 05/05/20 22:00 05/05/20 22:08 Lipitor - PO 20 mg HS [facility] Administration Chlorhexidine Gluconate 1 applic 05/03/20 22:00 05/05/20 22:07 Hibiclens For Decolonization - TP 1 applic HS [facility] Administration Ezetimibe 10 mg 05/05/20 22:00 05/05/20 22:07 Zetia - PO 10 mg HS [facility] Administration Heparin Sodium (Porcine) 1,000 unit 05/05/20 18:17 Heparin - IVPUSH PRN PRN Heparin Heparin Sodium (Porcine) 5,000 unit 05/05/20 18:17 Heparin - IVPUSH PRN PRN Heparin Ceftriaxone Sodium 2 gm/ 100 mls @ 100 mls/hr 05/04/20 13:00 05/06/20 10:43 Dextrose IVPB 100 mls/hr DAILY [facility] Administration Protocol HEPARIN SOD,PORK IN 0.45% NACL 25,000 units in 500 mls @ 20 mls/hr 05/05/20 18:30 05/06/20 01:14 Heparin-1/2ns 25,000 Units/500 IVPB 1,100 units/hr TITR [facility] 22 mls/hr Titration Protocol 1,000 UNITS/HR Insulin Aspart 1 vial 05/03/20 22:00 05/06/20 06:22 Novolog Vial Sliding Scale - SQ 4 unit ACHS [facility] Administration Protocol Metoprolol Tartrate 25 mg 05/04/20 22:00 05/06/20 10:43 Lopressor - PO 25 mg BID [facility] Administration Mupirocin 1 applic 05/03/20 22:00 05/06/20 10:43 Bactroban Ointment (For Decolonization) - NS 05/08/20 21:59 1 applic BID [facility] Administration Pantoprazole Sodium 40 mg 05/06/20 10:00 05/06/20 10:43 Protonix Iv IVPUSH 40 mg DAILY [facility] Administration Warfarin Sodium 5 mg 05/05/20 19:00 05/05/20 18:58 Coumadin - PO 5 mg SuTuWeThSa@1800 [facility] Administration Warfarin Sodium 7.5 mg 05/07/20 18:00 Coumadin - PO MoFr@1800 [facility] Vital Signs Period Temp Pulse Resp BP Sys/Rutherford Pulse Ox Last 24 Hr 98.0 F-98.8 F 76-105 18-22 127-155/47-75 91-100 NAD no JVD rrr, nl s1, s2, 2/6 systolic murmur CTAB soft, nt, nd +bs no edema no jaundice, diaphoresis not agitated CBC, BMP 05/06/20 06:15 05/06/20 06:15 echo 04/2020 mild conc LVH, nl LV function, RV nl, severe MAC, 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
--- NOTE | 2020-05-06 11:34 | PN ---
Progress Note (short form) - Note Progress Note: MR. ELLISON HAS BEEN REFUSING COLONOSCOPY FOR YEARS NOW. HE AGREED TO COLOGUARD WHICH CAME POSITIVE DATED 12/23/2019. I CONVINCED HIM TO SEE GI FOR COLONOSCOPY. GIVEN HIS COMPLICATED MEDICAL HISTORY HE WAS SCHEDULED TO SEE DR. EVANS CLARK GI, AT [facility] [place]. HIS CALLED ON 04/06/2020 AND CANCELLED THE APPOINTMENT. THE REASON AGAIN WAS MR. ELLISON DOES NOT WANT ANYTHING TO BE DONE AT THIS TIME.
--- NOTE | 2020-05-06 12:43 | PN ---
Progress Note (short form) - Note Progress Note: POD# 1 s/p colonoscopy with propofol sedation. Doing well, no issues, no questions.
[2020-05-06 13:01] LABS: INR 1.3 (0.83-1.09); PROTHROMBIN TIME (PATIENT) 15.4 SEC (9.7-13.0)
[2020-05-06 14:18] VITALS: TEMP 98.7
[2020-05-06 14:52] LABS: INR 1.28 (0.83-1.09); PROTHROMBIN TIME (PATIENT) 15.1 SEC (9.7-13.0)
[2020-05-06 14:56] LABS: BASO % 0.2 % (0-2.0); EOS % 0.1 % (0-4.5); HEMATOCRIT 26.3 % (35.4-49); HEMOGLOBIN 8.2 GM/dL (11.7-16.9); LYMPH % 8.4 % (8-40); MCHC 31.1 g/dl (32.0-35.9); MEAN CELL VOLUME 83.5 fl (80-96); MEAN PLT VOLUME 8.2 fl (7.5-11.1); MONO % 13.3 % (3.8-10.2); PLATELET COUNT 200 K/MM3 (134-434); RBC 3.16 M/mm3 (4.00-5.60); RDW 19.7 % (11.9-15.9); WHITE BLOOD COUNT 12.8 K/mm3 (4.0-10.0)
--- NOTE | 2020-05-06 15:21 | PN ---
Progress Note, Physician History of Present Illness: AWAKE, ALERT NO COMPLAINTS NO ABDOMINAL PAIN NO RECURRENT VOMITING AFEBRILE WBC IMPROVED PERSISTANT LACTIC ACIDOSIS C/S NO GROWTH - Current Medication List Current Medications: Active Medications Aspirin (Asa -) 81 mg PO DAILY [facility] Last Admin: 05/06/20 10:43 Dose: 81 mg Documented by: Atorvastatin Calcium (Lipitor -) 20 mg PO HS [facility] Last Admin: 05/05/20 22:08 Dose: 20 mg Documented by: Chlorhexidine Gluconate (Hibiclens For Decolonization -) 1 applic TP [facility] Last Admin: 05/05/20 22:07 Dose: 1 applic Documented by: Ezetimibe (Zetia -) 10 mg PO [facility] Last Admin: 05/05/20 22:07 Dose: 10 mg Documented by: Heparin Sodium (Porcine) (Heparin -) 1,000 unit IVPUSH PRN PRN PRN Reason: Heparin Heparin Sodium (Porcine) (Heparin -) 5,000 unit IVPUSH PRN PRN PRN Reason: Heparin Ceftriaxone Sodium 2 gm/ (Dextrose) 100 mls @ 100 mls/hr IVPB DAILY [facility]; Protocol Last Admin: 05/06/20 10:43 Dose: 100 mls/hr Documented by: HEPARIN SOD,PORK IN 0.45% NACL (Heparin-1/2ns 25,000 Units/500) 25,000 units in 500 mls @ 20 mls/hr IVPB TITR [facility]; Protocol Last Titration: 05/06/20 01:14 Dose: 1,100 units/hr, 22 mls/hr Documented by: Insulin Aspart (Novolog Vial Sliding Scale -) 1 vial SQ ACHS [facility]; Protocol Last Admin: 05/06/20 12:04 Dose: 6 unit Documented by: Metoprolol Tartrate (Lopressor -) 25 mg PO BID [facility] Last Admin: 05/06/20 10:43 Dose: 25 mg Documented by: Mupirocin (Bactroban Ointment (For Decolonization) -) 1 applic NS BID [facility] Stop: 05/08/20 21:59 Last Admin: 05/06/20 10:43 Dose: 1 applic Documented by: Pantoprazole Sodium (Protonix Iv) 40 mg IVPUSH DAILY [facility] Last Admin: 05/06/20 10:43 Dose: 40 mg Documented by: - Objective Vital Signs: Vital Signs Temperature 98.7 F 05/06/20 14:00 Pulse Rate 75 05/06/20 14:00 Respiratory Rate 20 05/06/20 14:00 Blood Pressure 138/53 L 05/06/20 14:00 O2 Sat by Pulse Oximetry (%) 95 05/06/20 14:00 Constitutional: Yes: No Distress Eyes: Yes: Conjunctiva Clear Cardiovascular: Yes: Regular Rate and Rhythm, S1, S2 Respiratory: Yes: CTA Bilaterally Gastrointestinal: Yes: Normal Bowel Sounds, Soft. No: Tenderness Labs: CBC, BMP 05/06/20 14:37 05/06/20 06:15 INR, PTT INR 1.28 (0.83-1.09) H 05/06/20 14:37 Assessment/Plan GI BLEED S/P COAGULOPATHY LEUKOCYTOSIS ? LEUKEMOID RXN ? SEPSIS R/O ASPIRATION LACTIC ACIDOSIS S/P AVR CONTINUE CEFTRIAXONE
--- NOTE | 2020-05-06 15:29 | PN ---
Progress Note, Physician History of Present Illness: Pt seen and examined at bedside. He is awake and alert. He denies shortness of breath. - Current Medication List Current Medications: Active Medications Aspirin (Asa -) 81 mg PO DAILY [facility] Last Admin: 05/06/20 10:43 Dose: 81 mg Documented by: Atorvastatin Calcium (Lipitor -) 20 mg PO [facility] Last Admin: 05/05/20 22:08 Dose: 20 mg Documented by: Chlorhexidine Gluconate (Hibiclens For Decolonization -) 1 applic TP [facility] Last Admin: 05/05/20 22:07 Dose: 1 applic Documented by: Ezetimibe (Zetia -) 10 mg PO [facility] Last Admin: 05/05/20 22:07 Dose: 10 mg Documented by: Heparin Sodium (Porcine) (Heparin -) 1,000 unit IVPUSH PRN PRN PRN Reason: Heparin Heparin Sodium (Porcine) (Heparin -) 5,000 unit IVPUSH PRN PRN PRN Reason: Heparin Ceftriaxone Sodium 2 gm/ (Dextrose) 100 mls @ 100 mls/hr IVPB DAILY [facility]; Protocol Last Admin: 05/06/20 10:43 Dose: 100 mls/hr Documented by: HEPARIN SOD,PORK IN 0.45% NACL (Heparin-1/2ns 25,000 Units/500) 25,000 units in 500 mls @ 20 mls/hr IVPB TITR [facility]; Protocol Last Titration: 05/06/20 01:14 Dose: 1,100 units/hr, 22 mls/hr Documented by: Insulin Aspart (Novolog Vial Sliding Scale -) 1 vial SQ ACHS [facility]; Protocol Last Admin: 05/06/20 12:04 Dose: 6 unit Documented by: Metoprolol Tartrate (Lopressor -) 25 mg PO BID [facility] Last Admin: 05/06/20 10:43 Dose: 25 mg Documented by: Mupirocin (Bactroban Ointment (For Decolonization) -) 1 applic NS BID [facility] Stop: 05/08/20 21:59 Last Admin: 05/06/20 10:43 Dose: 1 applic Documented by: Pantoprazole Sodium (Protonix Iv) 40 mg IVPUSH DAILY [facility] Last Admin: 05/06/20 10:43 Dose: 40 mg Documented by: - Objective Vital Signs: Vital Signs Temperature 98.7 F 05/06/20 14:00 Pulse Rate 75 05/06/20 14:00 Respiratory Rate 20 05/06/20 14:00 Blood Pressure 138/53 L 05/06/20 14:00 O2 Sat by Pulse Oximetry (%) 95 05/06/20 14:00 Constitutional: Yes: Calm Eyes: Yes: Conjunctiva Clear HENT: Yes: Atraumatic Neck: Yes: Supple Cardiovascular: Yes: S1, S2 Respiratory: Yes: CTA Bilaterally Gastrointestinal: Yes: Normal Bowel Sounds, Soft Genitourinary: Yes: WNL Musculoskeletal: Yes: WNL Extremities: Yes: WNL Edema: No Neurological: Yes: Oriented Psychiatric: Yes: Oriented Labs: CBC, BMP 05/06/20 14:37 05/06/20 06:15 INR, PTT INR 1.28 (0.83-1.09) H 05/06/20 14:37 Problem List - Problems (1) FITO (acute kidney injury) Code(s): N17.9 - ACUTE KIDNEY FAILURE, UNSPECIFIED (2) Anemia Code(s): D64.9 - ANEMIA, UNSPECIFIED Assessment/Plan Current Medications Generic Name Dose Route Start Last Admin Trade Name Freq PRN Reason Stop Dose Admin Aspirin 81 mg 05/06/20 10:00 05/06/20 10:43 Asa - PO 81 mg DAILY [facility] Administration Atorvastatin Calcium 20 mg 05/05/20 22:00 05/05/20 22:08 Lipitor - PO 20 mg HS [facility] Administration Chlorhexidine Gluconate 1 applic 05/03/20 22:00 05/05/20 22:07 Hibiclens For Decolonization - TP 1 applic HS [facility] Administration Ezetimibe 10 mg 05/05/20 22:00 05/05/20 22:07 Zetia - PO 10 mg HS [facility] Administration Heparin Sodium (Porcine) 1,000 unit 05/05/20 18:17 Heparin - IVPUSH PRN PRN Heparin Heparin Sodium (Porcine) 5,000 unit 05/05/20 18:17 Heparin - IVPUSH PRN PRN Heparin Ceftriaxone Sodium 2 gm/ 100 mls @ 100 mls/hr 05/04/20 13:00 05/06/20 10:43 Dextrose IVPB 100 mls/hr DAILY [facility] Administration Protocol HEPARIN SOD,PORK IN 0.45% NACL 25,000 units in 500 mls @ 20 mls/hr 05/05/20 18:30 05/06/20 01:14 Heparin-1/2ns 25,000 Units/500 IVPB 1,100 units/hr TITR [facility] 22 mls/hr Titration Protocol 1,000 UNITS/HR Insulin Aspart 1 vial 05/03/20 22:00 05/06/20 12:04 Novolog Vial Sliding Scale - SQ 6 unit ACHS [facility] Administration Protocol Metoprolol Tartrate 25 mg 05/04/20 22:00 05/06/20 10:43 Lopressor - PO 25 mg BID [facility] Administration Mupirocin 1 applic 05/03/20 22:00 05/06/20 10:43 Bactroban Ointment (For Decolonization) - NS 05/08/20 21:59 1 applic BID [facility] Administration Pantoprazole Sodium 40 mg 05/06/20 10:00 05/06/20 10:43 Protonix Iv IVPUSH 40 mg DAILY [facility] Administration Impressin 1. FITO 2. anemia 3. supratherapeutic INR 4. dm 5. htn 6. hld 7. lactic acidosis 8. 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
--- NOTE | 2020-05-06 16:11 | CONS ---
FOLLOWUP NOTE DATE OF CONSULTATION: DATE OF DICTATION: 05/06/2020 Patient is a 79-year-old gentleman who was admitted with severe anemia associated with coffee-ground emesis and found to be severely anemic. During his hospitalization, he underwent an upper endoscopy that apparently showed gastritis and later underwent colonoscopy which revealed a tumor that was suspicious for carcinoma. Biopsy is pending, and he also had diverticulosis and bright red blood in his sigmoid colon. Patient has longstanding history of coronary artery disease, status post CABG, status post mechanical aortic valve replacement; history of diabetes mellitus, [id number]; hypercholesterolemia. History of a remote cerebrovascular accident. In view of his recent clinical presentation and findings, it was decided that the patient be transferred to a medical center for further evaluation and possible tumor resection. Patient is agreeable and would prefer to go to [facility], and I spoke to Dr. Duong Lofton, the surgeon, who has accepted the patient for transfer. I have also spoken to his and son and they are all in agreement and arrangements have been made for transfer. Patient's information has been conveyed by the residents to the receiving institution, and he is to be transferred via paramedics. Patient is fully apprised of the reason for transfer and the need for further management at a tertiary care facility. Time spent in speaking to the patient, the surgeon, family members, residents and reviewing his recent tests. I have also spoken to the brass and wind instrument repairer, , who is agreeable with the transfer. VIDHYA GREENFIELD M.D. [id number]
--- NOTE | 2020-05-06 16:38 | PATH ---
Surgical Pathology Report Patient Name: ZACHARIAH ELLISON [facility]. Rec. #: [id number] /Age/Gender: 1940 (Age: 79) / M Account: [id number] Location: ICU [facility] Taken: 05/05/2020 Received: 05/05/2020 Reported: 05/06/2020 Physicians: Deshawn Kaur M.D. 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 Comment: The margin cannot be evaluated in this biopsy material. Intradepartmental case reviewed with concordance on diagnosis, 05/06/2020. Electronically Signed Yajaira Pena M.D. Addendum Reported: 05/07/2020 Addendum Diagnosis This case was discussed with Dr. Santamaria on 05/07/2020. Yajaira Pena M.D. Gross Description Received in formalin, labeled "rectal-sigmoid mass" are multiple alonzo, irregular portions of soft tissue measuring 1.0 x 1.0 x 0.1 cm aggregate. The specimen is submitted in toto in one cassette. PAULINE/05/05/2020 kimmie/05/05/2020
[2020-05-06 17:57] VITALS: PULSE 87
--- NOTE | 2020-05-06 18:07 | PN.GI ---
GI Progress Note Subjective: No acute events Biopsy of sigmoid mass = Tubular adenoma w/ focal high grade dysplasia. No abdominal pain No over bleeding - Objective Vital Signs: Vital Signs Temperature 98.7 F 05/06/20 14:00 Pulse Rate 87 05/06/20 16:00 Respiratory Rate 20 05/06/20 16:00 Blood Pressure 167/76 05/06/20 16:00 O2 Sat by Pulse Oximetry (%) 95 05/06/20 16:00 Constitutional: Calm Eyes: No: Sclera Icterus Cardiovascular: Yes: Regular Rate and Rhythm, Murmur (2/6 systolic murmur, mecha nical click) Respiratory: No: Diminished Gastrointestinal Inspection: No: Distention ...Auscultate: Yes: Normoactive Bowel Sounds ...Palpate: Yes: Soft. No: Tenderness Neurological: Yes: Alert Labs: CBC, BMP 05/06/20 14:37 05/06/20 06:15 INR, PTT INR 1.28 (0.83-1.09) H 05/06/20 14:37 Problem List - Problems (1) GI bleed Assessment/Plan: H/H stable with INR corrected and on heparin drip Tubular adenoma with HGD. Could not exclude cancer in deeper sections of the mass Being transferred to [facility] for evaluation for resection Monitor H/H Protonix 40mg daily Code(s): K92.2 - GASTROINTESTINAL HEMORRHAGE, UNSPECIFIED
[2020-05-06 19:00] VITALS: BP 154/52
[2020-05-06] MEDS: HEPARIN SOD,PORK IN 0.45% NACL 25,000 UNITS/500 ML INFUS.BAG IVPB SCH (19:10)
[2020-05-06] MEDS ORDERED: NAPH,MB-DB/K PH,MBDB POWDER PACKET PO SCH (22:00)
[2020-05-07] MEDS ORDERED: WARFARIN NA 7.5 MG TABLET (FP) PO SCH (18:00)
--- NOTE | 2020-05-08 17:35 | PN.HO ---
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
== END 2020-05-06 19:30 | disposition short-term general hospital (02) | DRG 393 ==
LOC: SUPCPDRO 16:15 → JER 16:15 → JERBED 19:13 → JICU 23:43
PROVIDERS: ADMIT Internal Medicine Pulmonary Disease; ATTEND Internal Medicine Pulmonary Disease
PROC: 0DJ08ZZ Inspection of Upper Intestinal Tract, Via Natural or Artificial Opening Endoscopic (ICD-10-PCS; 2020-05-04)
PROC: 30233L1 Transfusion of Nonautologous Fresh Plasma into Peripheral Vein, Percutaneous Approach (ICD-10-PCS; 2020-05-04)
PROC: 30233K1 Transfusion of Nonautologous Frozen Plasma into Peripheral Vein, Percutaneous Approach (ICD-10-PCS; 2020-05-04)
PROC: 30233N1 Transfusion of Nonautologous Red Blood Cells into Peripheral Vein, Percutaneous Approach (ICD-10-PCS; 2020-05-04)
PROC: 0DBN8ZX Excision of Sigmoid Colon, Via Natural or Artificial Opening Endoscopic, Diagnostic (ICD-10-PCS; principal; 2020-05-05 15:30)
DX: D12.5 Benign neoplasm of sigmoid colon (principal); K57.31 Diverticulosis of large intestine without perforation or abscess with bleeding; N17.9 Acute kidney failure, unspecified; E87.2 Acidosis; D68.59 Other primary thrombophilia; D68.9 Coagulation defect, unspecified; D62 Acute posthemorrhagic anemia; K92.2 Gastrointestinal hemorrhage, unspecified; D72.829 Elevated white blood cell count, unspecified; D64.9 Anemia, unspecified; I25.10 Atherosclerotic heart disease of native coronary artery without angina pectoris; E11.9 Type 2 diabetes mellitus without complications; Z95.1 Presence of aortocoronary bypass graft; I12.9 Hypertensive chronic kidney disease with stage 1 through stage 4 chronic kidney disease, or unspecified chronic kidney disease; N18.9 Chronic kidney disease, unspecified; K29.70 Gastritis, unspecified, without bleeding; E87.6 Hypokalemia; G47.33 Obstructive sleep apnea (adult) (pediatric); E87.5 Hyperkalemia; E78.5 Hyperlipidemia, unspecified
CPT/HCPCS: 36415; 36430; 36511; 71045-TC-FY; 71260-TC; 74177-TC; 76775-TC; 80048; 80053; 80061; 81003; 82272; 82378; 82436; 82550; 82553; 82565; 82728; 82962; 83036; 83540; 83550; 83605; 83690; 83721; 83735; 84100; 84133; 84300; 84484; 85025; 85027; 85610; 85730; 86850; 86900; 86901; 86922; 87040; 87086; 88305-TC; 93005; 93010; 93306-TC; 99285-25; P9017; P9038; P9058; Q9967; U0003

== ENCOUNTER 2020-08-19 18:24 | Inpatient (IN) | payer OTHER, BC ==
[2020-08-19] MEDS ORDERED: SODIUM CHLORIDE 2,585 ML IV ONE (19:32)
[2020-08-19] MEDS ORDERED: PIPERACILLIN/TAZOB 4.5 GM 4.5 GM in DEXTROSE 5%-WATER 100 ML IVPB ONE (19:38)
[2020-08-19] MEDS ORDERED: VANCOMYCIN 1 GM in D5W (PRE-DOCKED) 1,000 MG/250 ML IVPB ONE (19:38)
[2020-08-19] MEDS ORDERED: ALBUTEROL SO4 2.5/IPRATROPIUM 0.5 INH SOL 3 ML VIAL.NEB. NEB ONE (20:05)
[2020-08-19] MEDS ORDERED: PIPERACILLIN/TAZOB 4.5 GM 4.5 GM/100 ML BAG IVPB ONE (20:06)
[2020-08-19 20:18] LABS: EPI CELLS >36 /uL (0-25.1); HYALINE CASTS 11 /uL (0-3.1); URINE APPEARANCE TURBID; URINE BACTERIA 25 /uL (0-1359); URINE BILIRUBIN NEGATIVE (NEGATIVE); URINE COLOR YELLOW; URINE GLUCOSE (UA) NEGATIVE (NEGATIVE); URINE KETONE NEGATIVE (NEGATIVE); URINE LEUK ESTERASE 2+ (NEGATIVE); URINE NITRITE NEGATIVE (NEGATIVE); URINE PROTEIN 1+ (NEGATIVE); URINE RBC 88 /uL (0-23.9); URINE UROBILINOGEN 0.2 mg/dL (0.2-1.0); URINE WBC 249 /uL (0-25.8)
[2020-08-19] MEDS: ALBUTEROL SO4 2.5/IPRATROPIUM 0.5 INH SOL 3 ML VIAL.NEB. NEB SCH ×4 (20:18→21:30)
[2020-08-19 20:24] LABS: EOS % 1.3 % (0-4.5); HEMATOCRIT 35.6 % (35.4-49); HEMOGLOBIN 11.1 GM/dL (11.7-16.9); LYMPH % 7.6 % (8-40); MCH 25.2 pg (25.7-33.7); MCHC 31.3 g/dl (32.0-35.9); MEAN CELL VOLUME 80.5 fl (80-96); MEAN PLT VOLUME 7.9 fl (7.5-11.1); MONO % 9.9 % (3.8-10.2); NEUT % 80.2 % (42.8-82.8); PLATELET COUNT 567 K/MM3 (134-434); RBC 4.41 M/mm3 (4.00-5.60); RDW 20.4 % (11.9-15.9); WHITE BLOOD COUNT 18.3 K/mm3 (4.0-10.0)
[2020-08-19 20:25] LABS: INR 2.82 (0.83-1.09); PROTHROMBIN TIME (PATIENT) 33.1 SEC (9.7-13.0)
[2020-08-19 20:27] LABS: ACTIVATED PTT 36.1 SECONDS (25.2-36.5)
[2020-08-19 20:32] LABS: POTASSIUM 4.8 mmol/L (3.5-5.1)
[2020-08-19 20:34] LABS: CALCIUM 9.3 mg/dL (8.5-10.1)
[2020-08-19 20:35] LABS: ALBUMIN 2.2 g/dl (3.4-5.0); BLOOD UREA NITROGEN 28.3 mg/dL (7-18)
[2020-08-19] MEDS ORDERED: VANCOMYCIN 1 GRAM (PRE-DOCKED) 1,000 MG/250 ML BAG IVPB ONE (20:37)
[2020-08-19 20:38] LABS: CREATININE 0.8 mg/dL (0.55-1.3)
[2020-08-19 20:39] LABS: BILIRUBIN,TOTAL 0.4 mg/dL (0.2-1)
[2020-08-19 21:09] LABS: VENOUS BASE EXCESS 0.5 mmol/L (-2-2); VENOUS O2 SATURATION 42.8 % (70-80); VENOUS PCO2 39.7 mmHg (38-52); VENOUS PH 7.417 (7.310-7.410)
[2020-08-19 22:33] LABS: ARTERIAL BLD GAS O2 SATURATION 97.8 mmHg (95-98); ARTERIAL BLOOD GAS BASE EXCESS -1.9 mmol/L (-2-2); ARTERIAL BLOOD GAS pH 7.443 (7.350-7.450)
[2020-08-20] MEDS ORDERED: ACETAMINOPHEN 1000 MG/100 ML VIAL (NON FORMULARY) IVPB PRN (02:41)
[2020-08-20] MEDS ORDERED: DEXTROSE 5%-0.45% SALINE 1,000 ML IV SCH (02:45)
[2020-08-20] MEDS ORDERED: PIPERACILLIN/TAZOB 4.5 GM 4.5 GM/100 ML BAG IVPB ONE ×3 (02:50→17:36)
[2020-08-20] MEDS: PIPERACILLIN/TAZOB 4.5 GM 4.5 GM in DEXTROSE 5%-WATER 100 ML IVPB SCH ×3 (03:03→17:48)
[2020-08-20] MEDS ORDERED: NOREPINEPHRINE BITARTRATE 8,000 MCG/500 ML BAG IVPB SCH (06:30)
[2020-08-20] MEDS ORDERED: FAMOTIDINE 20 MG TABLET PEG SCH (10:00)
[2020-08-20 10:30] LABS: BASO % 0.8 % (0-2.0); EOS % 2.1 % (0-4.5); HEMATOCRIT 31.7 % (35.4-49); HEMOGLOBIN 9.7 GM/dL (11.7-16.9); LYMPH % 5.5 % (8-40); MCH 24.4 pg (25.7-33.7); MCHC 30.5 g/dl (32.0-35.9); MEAN CELL VOLUME 80.1 fl (80-96); MEAN PLT VOLUME 7.7 fl (7.5-11.1); MONO % 9.4 % (3.8-10.2); NEUT % 82.2 % (42.8-82.8); PLATELET COUNT 457 K/MM3 (134-434); RBC 3.95 M/mm3 (4.00-5.60); RDW 20.3 % (11.9-15.9)
[2020-08-20 10:35] LABS: INR 2.93 (0.83-1.09); PROTHROMBIN TIME (PATIENT) 34.9 SEC (9.7-13.0)
[2020-08-20 10:47] LABS: POTASSIUM 4.3 mmol/L (3.5-5.1)
[2020-08-20 10:49] LABS: ALBUMIN 1.8 g/dl (3.4-5.0); BLOOD UREA NITROGEN 21.8 mg/dL (7-18); CALCIUM 8.4 mg/dL (8.5-10.1)
[2020-08-20 10:53] LABS: CREATININE 0.6 mg/dL (0.55-1.3)
[2020-08-20 10:54] LABS: BILIRUBIN,TOTAL 0.6 mg/dL (0.2-1)
[2020-08-20] MEDS ORDERED: ALBUTEROL SO4 2.5/IPRATROPIUM 0.5 INH SOL 3 ML VIAL.NEB. NEB PRN (10:56)
[2020-08-20] MEDS ORDERED: VANCOMYCIN HCL 1,250 MG in DEXTROSE 5%-WATER - 250 ML IVPB SCH (11:00)
[2020-08-20] MEDS: FERROUS SO4 300 MG/5 ML ORAL SOLN UNIT DOSE CUPS GT SCH ×2 (11:45→17:48)
[2020-08-20] MEDS: INSULIN SLIDING SCALE (NOVOLOG) 1 VIAL SQ SCH ×3 (11:54→23:00)
[2020-08-20] MEDS: SODIUM CHLORIDE 0.45%/POT 20 MEQ/1,000 ML INFUS.BAG IV SCH (16:15)
[2020-08-20] MEDS ORDERED: WARFARIN NA 5 MG TABLET ONE (17:36)
[2020-08-20] MEDS: WARFARIN NA 5 MG TABLET PO SCH (17:48)
[2020-08-20] MEDS: FAMOTIDINE 40 MG/5 ML ORAL SUSPENSION PEG SCH (23:00)
[2020-08-20] MEDS: INSULIN (LEVEMIR) 100 UNITS/ML UNITS SQ SCH (23:00)
[2020-08-20] MEDS: ATORVASTATIN CA 10 MG TABLET (FP) PEG SCH (23:00)
[2020-08-21] MEDS ORDERED: PIPERACILLIN/TAZOBACTAM 4.5 GM VIAL IVPB ONE ×4 (02:11→17:38)
[2020-08-21] MEDS ORDERED: DEXTROSE 5%-WATER 100 ML IVPB ONE ×3 (02:11→17:38)
[2020-08-21] MEDS ORDERED: PIPERACILLIN/TAZOB 4.5 GM 4.5 GM in DEXTROSE 5%-WATER 100 ML IVPB SCH (03:00)
[2020-08-21] MEDS: PIPERACILLIN/TAZOB 4.5 GM 4.5 GM in DEXTROSE 5%-WATER 100 ML IVPB SCH ×3 (03:04→17:45)
[2020-08-21 07:06] LABS: EOS % 2.9 % (0-4.5); HEMATOCRIT 30.1 % (35.4-49); HEMOGLOBIN 9.2 GM/dL (11.7-16.9); LYMPH % 7.1 % (8-40); MCH 24.4 pg (25.7-33.7); MCHC 30.5 g/dl (32.0-35.9); MEAN CELL VOLUME 80.1 fl (80-96); MEAN PLT VOLUME 7.7 fl (7.5-11.1); PLATELET COUNT 411 K/MM3 (134-434); RBC 3.76 M/mm3 (4.00-5.60); WHITE BLOOD COUNT 13.1 K/mm3 (4.0-10.0)
[2020-08-21 07:23] LABS: INR 3.82 (0.83-1.09); PROTHROMBIN TIME (PATIENT) 45.2 SEC (9.7-13.0)
[2020-08-21 07:30] LABS: POTASSIUM 3.9 mmol/L (3.5-5.1)
[2020-08-21 07:37] LABS: CALCIUM 8.7 mg/dL (8.5-10.1)
[2020-08-21 07:38] LABS: ALBUMIN 1.7 g/dl (3.4-5.0)
[2020-08-21 07:40] LABS: CREATININE 0.5 mg/dL (0.55-1.3)
[2020-08-21 07:42] LABS: BILIRUBIN,TOTAL 0.5 mg/dL (0.2-1); TOT PROT 5.4 g/dl (6.4-8.2)
[2020-08-21] MEDS: ALBUTEROL SO4 2.5/IPRATROPIUM 0.5 INH SOL 3 ML VIAL.NEB. NEB SCH ×4 (08:30→20:12)
[2020-08-21] MEDS ORDERED: PT OWN MED DRAWER 7, Y5N ONE ×2 (09:04→21:15)
[2020-08-21] MEDS: FERROUS SO4 300 MG/5 ML ORAL SOLN UNIT DOSE CUPS GT SCH ×2 (10:11→17:45)
[2020-08-21] MEDS: SODIUM CHLORIDE 0.45%/POT 20 MEQ/1,000 ML INFUS.BAG IV SCH (10:11)
[2020-08-21] MEDS: FAMOTIDINE 40 MG/5 ML ORAL SUSPENSION PEG SCH ×2 (10:12→22:35)
[2020-08-21] MEDS: INSULIN SLIDING SCALE (NOVOLOG) 1 VIAL SQ SCH ×4 (12:08→23:00)
[2020-08-21] MEDS: VANCOMYCIN HCL 1,250 MG in DEXTROSE 5%-WATER - 250 ML IVPB SCH ×2 (12:08)
[2020-08-21] MEDS: WARFARIN NA 7.5 MG TABLET (FP) PO SCH (17:45)
[2020-08-21] MEDS: ATORVASTATIN CA 10 MG TABLET (FP) PEG SCH (22:35)
[2020-08-21 22:47] VITALS: BMI 27.1
[2020-08-22] MEDS: INSULIN (LEVEMIR) 100 UNITS/ML UNITS SQ SCH ×2 (00:24→21:49)
[2020-08-22] MEDS: ALBUTEROL SO4 2.5/IPRATROPIUM 0.5 INH SOL 3 ML VIAL.NEB. NEB SCH ×6 (00:39→20:15)
[2020-08-22] MEDS ORDERED: DEXTROSE 5%-WATER 100 ML IVPB ONE ×2 (01:47→09:43)
[2020-08-22] MEDS ORDERED: PIPERACILLIN/TAZOBACTAM 4.5 GM VIAL IVPB ONE ×2 (01:47→09:43)
[2020-08-22] MEDS: PIPERACILLIN/TAZOB 4.5 GM 4.5 GM in DEXTROSE 5%-WATER 100 ML IVPB SCH (02:23)
[2020-08-22] MEDS: INSULIN SLIDING SCALE (NOVOLOG) 1 VIAL SQ SCH ×4 (06:52→21:48)
[2020-08-22] MEDS ORDERED: INSULIN (NOVOLOG) ASPART 100 UNITS/ML 10ML VIAL ONE (06:56)
[2020-08-22 07:51] LABS: PROTHROMBIN TIME (PATIENT) 52.5 SEC (9.7-13.0)
[2020-08-22 08:08] LABS: INR 4.53 (0.83-1.09)
[2020-08-22] MEDS: FERROUS SO4 300 MG/5 ML ORAL SOLN UNIT DOSE CUPS GT SCH ×2 (09:00→17:05)
[2020-08-22] MEDS ORDERED: PT OWN MED DRAWER 7, Y5N ONE (09:43)
[2020-08-22] MEDS: MULTIVIT-MINERALS ORAL LIQUID PO SCH (10:00)
[2020-08-22] MEDS: FAMOTIDINE 40 MG/5 ML ORAL SUSPENSION PEG SCH ×2 (10:00→21:48)
[2020-08-22] MEDS: ERTAPENEM SODIUM 1 GM in SODIUM CHLORIDE 50 ML IVPB SCH (10:34)
[2020-08-22] MEDS: WARFARIN NA 7.5 MG TABLET (FP) PO SCH (17:17)
[2020-08-22] MEDS: ATORVASTATIN CA 10 MG TABLET (FP) PEG SCH (21:48)
[2020-08-23] MEDS: ALBUTEROL SO4 2.5/IPRATROPIUM 0.5 INH SOL 3 ML VIAL.NEB. NEB SCH ×6 (00:23→20:17)
[2020-08-23] MEDS: INSULIN SLIDING SCALE (NOVOLOG) 1 VIAL SQ SCH ×4 (06:46→22:01)
[2020-08-23] MEDS ORDERED: PT OWN MED DRAWER 7, Y5N ONE ×2 (09:28→10:30)
[2020-08-23] MEDS: ERTAPENEM SODIUM 1 GM in SODIUM CHLORIDE 50 ML IVPB SCH (09:46)
[2020-08-23] MEDS: FAMOTIDINE 40 MG/5 ML ORAL SUSPENSION PEG SCH ×2 (09:46→23:04)
[2020-08-23] MEDS: FERROUS SO4 300 MG/5 ML ORAL SOLN UNIT DOSE CUPS GT SCH ×2 (09:47→17:47)
[2020-08-23] MEDS: MULTIVIT-MINERALS ORAL LIQUID PO SCH (09:47)
[2020-08-23] MEDS: METOPROLOL TARTRATE 50 MG TABLET (FP) PO SCH ×2 (09:56→21:58)
[2020-08-23] MEDS: LISINOPRIL 5 MG TABLET PO SCH (09:56)
[2020-08-23] MEDS: SODIUM CHLORIDE 0.45%/POT 20 MEQ/1,000 ML INFUS.BAG IV SCH (10:00)
[2020-08-23 10:48] LABS: EOS % 0.1 % (0-4.5); HEMATOCRIT 37.4 % (35.4-49); HEMOGLOBIN 11.5 GM/dL (11.7-16.9); LYMPH % 3.9 % (8-40); MCH 24.7 pg (25.7-33.7); MCHC 30.8 g/dl (32.0-35.9); MEAN CELL VOLUME 80.2 fl (80-96); MEAN PLT VOLUME 7.7 fl (7.5-11.1); MONO % 7.7 % (3.8-10.2); NEUT % 87.3 % (42.8-82.8); PLATELET COUNT 409 K/MM3 (134-434); RBC 4.66 M/mm3 (4.00-5.60); RDW 19.7 % (11.9-15.9)
[2020-08-23 11:44] LABS: ALBUMIN 1.8 g/dl (3.4-5.0); BILIRUBIN,TOTAL 0.4 mg/dL (0.2-1); BLOOD UREA NITROGEN 14.4 mg/dL (7-18); CALCIUM 8.6 mg/dL (8.5-10.1); CREATININE 0.9 mg/dL (0.55-1.3); POTASSIUM 4.1 mmol/L (3.5-5.1); TOT PROT 6.1 g/dl (6.4-8.2)
[2020-08-23] MEDS: VANCOMYCIN 1 GRAM (PRE-DOCKED) 1,000 MG/250 ML BAG IVPB SCH (13:46)
[2020-08-23 15:01] LABS: PROTHROMBIN TIME (PATIENT) 60.4 SEC (9.7-13.0)
[2020-08-23 15:55] LABS: INR 5.24 (0.83-1.09)
[2020-08-23] MEDS: INSULIN (LEVEMIR) 100 UNITS/ML UNITS SQ SCH (21:58)
[2020-08-23] MEDS: ATORVASTATIN CA 10 MG TABLET (FP) PEG SCH (21:58)
[2020-08-24] MEDS: ALBUTEROL SO4 2.5/IPRATROPIUM 0.5 INH SOL 3 ML VIAL.NEB. NEB SCH ×6 (00:14→20:59)
[2020-08-24] MEDS: VANCOMYCIN 1 GRAM (PRE-DOCKED) 1,000 MG/250 ML BAG IVPB SCH ×2 (00:50→13:11)
[2020-08-24] MEDS: INSULIN SLIDING SCALE (NOVOLOG) 1 VIAL SQ SCH ×5 (07:01→22:22)
[2020-08-24 07:12] LABS: BASO % 0.7 % (0-2.0); EOS % 1.2 % (0-4.5); HEMATOCRIT 34.2 % (35.4-49); HEMOGLOBIN 10.5 GM/dL (11.7-16.9); LYMPH % 5.6 % (8-40); MCH 24.3 pg (25.7-33.7); MCHC 30.7 g/dl (32.0-35.9); MEAN PLT VOLUME 7.3 fl (7.5-11.1); NEUT % 83.5 % (42.8-82.8); PLATELET COUNT 404 K/MM3 (134-434); RBC 4.33 M/mm3 (4.00-5.60); RDW 19.5 % (11.9-15.9); WHITE BLOOD COUNT 16.1 K/mm3 (4.0-10.0)
[2020-08-24 07:18] LABS: PROTHROMBIN TIME (PATIENT) 62.5 SEC (9.7-13.0)
[2020-08-24 07:27] LABS: POTASSIUM 4.4 mmol/L (3.5-5.1)
[2020-08-24 07:32] LABS: ALBUMIN 1.8 g/dl (3.4-5.0); BLOOD UREA NITROGEN 20.2 mg/dL (7-18); CALCIUM 8.4 mg/dL (8.5-10.1)
[2020-08-24 07:36] LABS: CREATININE 1.5 mg/dL (0.55-1.3)
[2020-08-24 07:37] LABS: BILIRUBIN,TOTAL 0.4 mg/dL (0.2-1); TOT PROT 5.8 g/dl (6.4-8.2)
[2020-08-24 07:48] LABS: INR 5.43 (0.83-1.09)
[2020-08-24] MEDS ORDERED: PT OWN MED DRAWER 7, Y5N ONE ×3 (09:21→22:08)
[2020-08-24] MEDS: ERTAPENEM SODIUM 1 GM in SODIUM CHLORIDE 50 ML IVPB SCH (09:28)
[2020-08-24] MEDS: FERROUS SO4 300 MG/5 ML ORAL SOLN UNIT DOSE CUPS GT SCH ×2 (09:31→18:25)
[2020-08-24] MEDS: LISINOPRIL 5 MG TABLET PO SCH (09:31)
[2020-08-24] MEDS: METOPROLOL TARTRATE 50 MG TABLET (FP) PO SCH ×2 (09:32→22:22)
[2020-08-24] MEDS: FAMOTIDINE 40 MG/5 ML ORAL SUSPENSION PEG SCH ×2 (09:34→22:23)
[2020-08-24] MEDS: MULTIVIT-MINERALS ORAL LIQUID PO SCH (09:34)
[2020-08-24] MEDS: SODIUM CHLORIDE 0.45%/POT 20 MEQ/1,000 ML INFUS.BAG IV SCH ×2 (09:35→18:21)
[2020-08-24] MEDS: ATORVASTATIN CA 10 MG TABLET (FP) PEG SCH (22:22)
[2020-08-24] MEDS: INSULIN (LEVEMIR) 100 UNITS/ML UNITS SQ SCH (22:23)
[2020-08-25] MEDS: ALBUTEROL SO4 2.5/IPRATROPIUM 0.5 INH SOL 3 ML VIAL.NEB. NEB SCH ×3 (00:24→07:35)
[2020-08-25] MEDS: VANCOMYCIN 1 GRAM (PRE-DOCKED) 1,000 MG/250 ML BAG IVPB SCH (01:08)
[2020-08-25] MEDS: INSULIN SLIDING SCALE (NOVOLOG) 1 VIAL SQ SCH ×4 (06:08→21:26)
[2020-08-25 06:56] LABS: HEMATOCRIT 29.9 % (35.4-49); HEMOGLOBIN 9.2 GM/dL (11.7-16.9); MCH 24.1 pg (25.7-33.7); MCHC 30.9 g/dl (32.0-35.9); MEAN PLT VOLUME 7.4 fl (7.5-11.1); PLATELET COUNT 396 K/MM3 (134-434); RBC 3.84 M/mm3 (4.00-5.60); RDW 19.9 % (11.9-15.9)
[2020-08-25 07:36] LABS: POTASSIUM 4.6 mmol/L (3.5-5.1)
[2020-08-25 07:41] LABS: BLOOD UREA NITROGEN 23.1 mg/dL (7-18); MAGNESIUM 1.8 mg/dL (1.8-2.4)
[2020-08-25 07:44] LABS: CREATININE 1.8 mg/dL (0.55-1.3)
[2020-08-25] MEDS ORDERED: PT OWN MED DRAWER 7, Y5N ONE ×3 (08:38→20:39)
[2020-08-25] MEDS: FERROUS SO4 300 MG/5 ML ORAL SOLN UNIT DOSE CUPS GT SCH ×2 (09:38→17:55)
[2020-08-25] MEDS: METOPROLOL TARTRATE 50 MG TABLET (FP) PO SCH ×2 (09:38→21:23)
[2020-08-25] MEDS: LISINOPRIL 5 MG TABLET PO SCH (09:38)
[2020-08-25] MEDS: SODIUM CHLORIDE 0.45%/POT 20 MEQ/1,000 ML INFUS.BAG IV SCH (09:39)
[2020-08-25] MEDS: MULTIVIT-MINERALS ORAL LIQUID PO SCH (09:40)
[2020-08-25] MEDS: ERTAPENEM SODIUM 1 GM in SODIUM CHLORIDE 50 ML IVPB SCH (09:40)
[2020-08-25] MEDS: FAMOTIDINE 40 MG/5 ML ORAL SUSPENSION PEG SCH ×2 (09:41→21:23)
[2020-08-25 11:54] LABS: PROTHROMBIN TIME (PATIENT) 47.9 SEC (9.7-13.0)
[2020-08-25 12:04] LABS: INR 4.13 (0.83-1.09)
[2020-08-25] MEDS: WARFARIN NA 5 MG TABLET PO SCH (17:56)
[2020-08-25 19:19] LABS: EPI CELLS >36 /uL (0-25.1); HYALINE CASTS 5 /uL (0-3.1); URINE APPEARANCE TURBID; URINE BACTERIA 115 /uL (0-1359); URINE BILIRUBIN NEGATIVE (NEGATIVE); URINE COLOR YELLOW; URINE GLUCOSE (UA) NEGATIVE (NEGATIVE); URINE KETONE NEGATIVE (NEGATIVE); URINE LEUK ESTERASE 3+ (NEGATIVE); URINE NITRITE NEGATIVE (NEGATIVE); URINE PROTEIN 1+ (NEGATIVE); URINE RBC 62 /uL (0-23.9); URINE UROBILINOGEN 0.2 mg/dL (0.2-1.0); URINE WBC 4751 /uL (0-25.8)
[2020-08-25] MEDS: SILVER SULFADIAZINE 1% TOP CREAM 50 GM JAR TP SCH (21:22)
[2020-08-25] MEDS: INSULIN (LEVEMIR) 100 UNITS/ML UNITS SQ SCH (21:23)
[2020-08-25] MEDS: ATORVASTATIN CA 10 MG TABLET (FP) PEG SCH (21:23)
[2020-08-26 04:29] LABS: YEAST NONE SEEN (NEGATIVE)
[2020-08-26] MEDS: INSULIN SLIDING SCALE (NOVOLOG) 1 VIAL SQ SCH ×4 (06:16→22:15)
[2020-08-26 07:41] LABS: HEMATOCRIT 31.8 % (35.4-49); HEMOGLOBIN 9.6 GM/dL (11.7-16.9); MCH 23.8 pg (25.7-33.7); MCHC 30.2 g/dl (32.0-35.9); MEAN CELL VOLUME 78.9 fl (80-96); MEAN PLT VOLUME 7.7 fl (7.5-11.1); PLATELET COUNT 343 K/MM3 (134-434); RBC 4.03 M/mm3 (4.00-5.60); RDW 20.2 % (11.9-15.9); WHITE BLOOD COUNT 12.7 K/mm3 (4.0-10.0)
[2020-08-26 08:34] LABS: ALBUMIN 1.6 g/dl (3.4-5.0); BILIRUBIN,TOTAL 0.4 mg/dL (0.2-1); BLOOD UREA NITROGEN 26.7 mg/dL (7-18); CALCIUM 8.1 mg/dL (8.5-10.1); CREATININE 1.5 mg/dL (0.55-1.3); POTASSIUM 5.4 mmol/L (3.5-5.1); TOT PROT 5.3 g/dl (6.4-8.2)
[2020-08-26] MEDS ORDERED: SODIUM POLYSTYRENE SULFONATE 15 GM/60 ML BOTTLE GT ONE (09:30)
[2020-08-26] MEDS ORDERED: PT OWN MED DRAWER 7, Y5N ONE ×2 (09:45→20:02)
[2020-08-26 09:56] LABS: INR 2.23 (0.83-1.09); PROTHROMBIN TIME (PATIENT) 26.8 SEC (9.7-13.0)
[2020-08-26] MEDS: METOPROLOL TARTRATE 50 MG TABLET (FP) PO SCH ×2 (10:23→22:15)
[2020-08-26] MEDS: ERTAPENEM SODIUM 1 GM in SODIUM CHLORIDE 50 ML IVPB SCH (10:23)
[2020-08-26] MEDS: FERROUS SO4 300 MG/5 ML ORAL SOLN UNIT DOSE CUPS GT SCH ×2 (10:23→17:43)
[2020-08-26] MEDS: SILVER SULFADIAZINE 1% TOP CREAM 50 GM JAR TP SCH ×2 (10:24→22:16)
[2020-08-26] MEDS: MULTIVIT-MINERALS ORAL LIQUID PO SCH (10:24)
[2020-08-26] MEDS: FAMOTIDINE 40 MG/5 ML ORAL SUSPENSION PEG SCH ×2 (10:24→22:15)
[2020-08-26] MEDS ORDERED: SODIUM ZIRCONIUM CYCLOSILICATE (LOKELMA) 5 GM PACKET PO ONE ×2 (15:35→18:18)
[2020-08-26] MEDS ORDERED: SODIUM CHLORIDE 0.45% 1,000 ML IV SCH (15:45)
[2020-08-26 17:12] LABS: BASO % 1.4 % (0-2.0); EOS % 0.6 % (0-4.5); HEMATOCRIT 31.7 % (35.4-49); HEMOGLOBIN 9.8 GM/dL (11.7-16.9); LYMPH % 7.9 % (8-40); MCH 24.5 pg (25.7-33.7); MEAN CELL VOLUME 79.2 fl (80-96); MEAN PLT VOLUME 7.3 fl (7.5-11.1); MONO % 9.8 % (3.8-10.2); NEUT % 80.3 % (42.8-82.8); PLATELET COUNT 345 K/MM3 (134-434); RBC 4.01 M/mm3 (4.00-5.60); RDW 19.9 % (11.9-15.9); WHITE BLOOD COUNT 14.1 K/mm3 (4.0-10.0)
[2020-08-26 17:30] LABS: POTASSIUM 5.4 mmol/L (3.5-5.1); POTASSIUM 5.5 mmol/L (3.5-5.1)
[2020-08-26 17:32] LABS: ALBUMIN 1.7 g/dl (3.4-5.0); BLOOD UREA NITROGEN 26.9 mg/dL (7-18); BLOOD UREA NITROGEN 27.4 mg/dL (7-18); CALCIUM 8.1 mg/dL (8.5-10.1); CALCIUM 8.2 mg/dL (8.5-10.1)
[2020-08-26 17:36] LABS: BILIRUBIN,TOTAL 0.3 mg/dL (0.2-1); CREATININE 1.5 mg/dL (0.55-1.3); CREATININE 1.6 mg/dL (0.55-1.3); TOT PROT 5.6 g/dl (6.4-8.2)
[2020-08-26] MEDS ORDERED: WARFARIN NA 5 MG TABLET PO SCH (18:00)
[2020-08-26] MEDS: ATORVASTATIN CA 10 MG TABLET (FP) PEG SCH (22:15)
[2020-08-26] MEDS: INSULIN (LEVEMIR) 100 UNITS/ML UNITS SQ SCH (22:16)
[2020-08-27 06:44] LABS: HEMATOCRIT 33.4 % (35.4-49); HEMOGLOBIN 10.2 GM/dL (11.7-16.9); MCH 24.3 pg (25.7-33.7); MCHC 30.4 g/dl (32.0-35.9); MEAN CELL VOLUME 79.9 fl (80-96); MEAN PLT VOLUME 7.4 fl (7.5-11.1); PLATELET COUNT 310 K/MM3 (134-434); RBC 4.18 M/mm3 (4.00-5.60); RDW 20.1 % (11.9-15.9); WHITE BLOOD COUNT 15.6 K/mm3 (4.0-10.0)
[2020-08-27 07:17] LABS: ALBUMIN 1.8 g/dl (3.4-5.0); BILIRUBIN,TOTAL 0.4 mg/dL (0.2-1); BLOOD UREA NITROGEN 26.7 mg/dL (7-18); CALCIUM 8.5 mg/dL (8.5-10.1); CREATININE 1.5 mg/dL (0.55-1.3); MAGNESIUM 1.8 mg/dL (1.8-2.4); PHOSPHOROUS 4.6 mg/dL (2.5-4.9); POTASSIUM 4.8 mmol/L (3.5-5.1); TOT PROT 5.7 g/dl (6.4-8.2)
[2020-08-27] MEDS: INSULIN SLIDING SCALE (NOVOLOG) 1 VIAL SQ SCH ×4 (07:24→22:08)
[2020-08-27] MEDS ORDERED: PT OWN MED DRAWER 7, Y5N ONE ×5 (08:24→21:52)
[2020-08-27] MEDS: MULTIVIT-MINERALS ORAL LIQUID PO SCH (09:06)
[2020-08-27] MEDS: FAMOTIDINE 40 MG/5 ML ORAL SUSPENSION PEG SCH ×2 (09:07→22:09)
[2020-08-27] MEDS: METOPROLOL TARTRATE 50 MG TABLET (FP) PO SCH ×2 (09:07→22:08)
[2020-08-27] MEDS: FERROUS SO4 300 MG/5 ML ORAL SOLN UNIT DOSE CUPS GT SCH ×2 (09:07→18:10)
[2020-08-27] MEDS: SILVER SULFADIAZINE 1% TOP CREAM 50 GM JAR TP SCH ×2 (09:59→22:10)
[2020-08-27] MEDS: ERTAPENEM SODIUM 1 GM in SODIUM CHLORIDE 50 ML IVPB SCH (10:19)
[2020-08-27 13:02] LABS: INR 1.71 (0.83-1.09); PROTHROMBIN TIME (PATIENT) 20.4 SEC (9.7-13.0)
[2020-08-27] MEDS ORDERED: SODIUM CHLORIDE 0.45% 1,000 ML IV SCH (13:03)
[2020-08-27] MEDS: AMINO ACIDS 4.25%/D5W 1,000 ML IV SCH (13:48)
[2020-08-27] MEDS: WARFARIN NA 5 MG TABLET PO SCH (18:10)
[2020-08-27] MEDS: ATORVASTATIN CA 10 MG TABLET (FP) PEG SCH (22:09)
[2020-08-27] MEDS: INSULIN (LEVEMIR) 100 UNITS/ML UNITS SQ SCH (22:09)
[2020-08-28] MEDS: INSULIN SLIDING SCALE (NOVOLOG) 1 VIAL SQ SCH ×4 (06:20→22:38)
[2020-08-28] MEDS ORDERED: PT OWN MED DRAWER 7, Y5N ONE ×3 (08:51→21:13)
[2020-08-28] MEDS: FAMOTIDINE 40 MG/5 ML ORAL SUSPENSION PEG SCH ×2 (09:04→22:38)
[2020-08-28] MEDS: ENOXAPARIN NA (PORCINE) 100 MG/1 ML DISP.SYRIN SQ SCH ×2 (09:04→22:38)
[2020-08-28] MEDS: MULTIVIT-MINERALS ORAL LIQUID PO SCH (09:04)
[2020-08-28] MEDS: FERROUS SO4 300 MG/5 ML ORAL SOLN UNIT DOSE CUPS GT SCH ×2 (09:04→17:43)
[2020-08-28] MEDS: METOPROLOL TARTRATE 50 MG TABLET (FP) PO SCH ×2 (09:05→22:38)
[2020-08-28] MEDS: AMINO ACIDS 4.25%/D5W 1,000 ML IV SCH (09:08)
[2020-08-28] MEDS: SILVER SULFADIAZINE 1% TOP CREAM 50 GM JAR TP SCH ×2 (09:24→22:39)
[2020-08-28] MEDS: ERTAPENEM SODIUM 1 GM in SODIUM CHLORIDE 50 ML IVPB SCH (10:55)
[2020-08-28 11:55] LABS: BASO % 0.4 % (0-2.0); HEMATOCRIT 33.1 % (35.4-49); HEMOGLOBIN 10.1 GM/dL (11.7-16.9); LYMPH % 7.4 % (8-40); MCH 24.4 pg (25.7-33.7); MCHC 30.5 g/dl (32.0-35.9); MEAN CELL VOLUME 79.9 fl (80-96); MEAN PLT VOLUME 7.8 fl (7.5-11.1); MONO % 10.8 % (3.8-10.2); NEUT % 80.4 % (42.8-82.8); PLATELET COUNT 326 K/MM3 (134-434); RBC 4.15 M/mm3 (4.00-5.60); RDW 19.9 % (11.9-15.9); WHITE BLOOD COUNT 13.2 K/mm3 (4.0-10.0)
[2020-08-28 12:02] LABS: INR 2.49 (0.83-1.09); PROTHROMBIN TIME (PATIENT) 29.8 SEC (9.7-13.0)
[2020-08-28 12:14] LABS: POTASSIUM 4.3 mmol/L (3.5-5.1)
[2020-08-28 12:16] LABS: CALCIUM 8.3 mg/dL (8.5-10.1)
[2020-08-28 12:17] LABS: ALBUMIN 1.7 g/dl (3.4-5.0); BLOOD UREA NITROGEN 28.2 mg/dL (7-18)
[2020-08-28 12:20] LABS: CREATININE 1.3 mg/dL (0.55-1.3)
[2020-08-28 12:21] LABS: BILIRUBIN,TOTAL 0.3 mg/dL (0.2-1); TOT PROT 5.8 g/dl (6.4-8.2)
[2020-08-28] MEDS: ALBUTEROL SO4 2.5/IPRATROPIUM 0.5 INH SOL 3 ML VIAL.NEB. NEB SCH ×2 (12:23→16:19)
[2020-08-28 12:33] LABS: ANISOCYTOSIS 1+; MACROCYTOSIS 0; PLATELET ESTIMATE NORMAL
[2020-08-28] MEDS: WARFARIN NA 5 MG TABLET PO SCH (17:44)
[2020-08-28] MEDS: ATORVASTATIN CA 10 MG TABLET (FP) PEG SCH (22:38)
[2020-08-28] MEDS: INSULIN (LEVEMIR) 100 UNITS/ML UNITS SQ SCH (22:42)
[2020-08-29] MEDS: AMINO ACIDS 4.25%/D5W 1,000 ML IV SCH (02:20)
[2020-08-29] MEDS: INSULIN SLIDING SCALE (NOVOLOG) 1 VIAL SQ SCH ×4 (06:02→21:55)
[2020-08-29 07:22] LABS: BASO % 0.3 % (0-2.0); EOS % 1.2 % (0-4.5); HEMATOCRIT 31.6 % (35.4-49); HEMOGLOBIN 9.8 GM/dL (11.7-16.9); LYMPH % 7.7 % (8-40); MCH 24.5 pg (25.7-33.7); MEAN PLT VOLUME 7.7 fl (7.5-11.1); MONO % 10.1 % (3.8-10.2); NEUT % 80.7 % (42.8-82.8); PLATELET COUNT 338 K/MM3 (134-434); RDW 20.4 % (11.9-15.9); WHITE BLOOD COUNT 14.1 K/mm3 (4.0-10.0)
[2020-08-29 07:27] LABS: INR 2.81 (0.83-1.09); PROTHROMBIN TIME (PATIENT) 33.5 SEC (9.7-13.0)
[2020-08-29 07:59] LABS: ALBUMIN 1.8 g/dl (3.4-5.0); BLOOD UREA NITROGEN 32.4 mg/dL (7-18)
[2020-08-29 08:00] LABS: MAGNESIUM 1.6 mg/dL (1.8-2.4)
[2020-08-29 08:02] LABS: CALCIUM 8.4 mg/dL (8.5-10.1)
[2020-08-29 08:04] LABS: BILIRUBIN,TOTAL 0.3 mg/dL (0.2-1); CREATININE 1.3 mg/dL (0.55-1.3); TOT PROT 5.9 g/dl (6.4-8.2)
[2020-08-29] MEDS: ALBUTEROL SO4 2.5/IPRATROPIUM 0.5 INH SOL 3 ML VIAL.NEB. NEB SCH ×4 (09:00→20:11)
[2020-08-29 09:50] LABS: ANISOCYTOSIS 2+; MACROCYTOSIS 0; PLATELET ESTIMATE NORMAL
[2020-08-29] MEDS: METOPROLOL TARTRATE 50 MG TABLET (FP) PO SCH ×2 (10:19→21:58)
[2020-08-29] MEDS: FERROUS SO4 300 MG/5 ML ORAL SOLN UNIT DOSE CUPS GT SCH ×2 (10:19→17:40)
[2020-08-29] MEDS: MULTIVIT-MINERALS ORAL LIQUID PO SCH (10:19)
[2020-08-29] MEDS: FAMOTIDINE 40 MG/5 ML ORAL SUSPENSION PEG SCH ×2 (10:20→22:02)
[2020-08-29] MEDS: SILVER SULFADIAZINE 1% TOP CREAM 50 GM JAR TP SCH ×2 (10:20→22:02)
[2020-08-29] MEDS: WARFARIN NA 5 MG TABLET PO SCH (17:40)
[2020-08-29] MEDS ORDERED: PT OWN MED DRAWER 7, Y5N ONE ×2 (18:54→22:01)
[2020-08-29] MEDS: ATORVASTATIN CA 10 MG TABLET (FP) PEG SCH (21:57)
[2020-08-29] MEDS: INSULIN (LEVEMIR) 100 UNITS/ML UNITS SQ SCH (21:58)
[2020-08-30] MEDS: INSULIN SLIDING SCALE (NOVOLOG) 1 VIAL SQ SCH ×4 (06:05→22:31)
[2020-08-30 06:58] LABS: BASO % 0.6 % (0-2.0); HEMATOCRIT 32.4 % (35.4-49); LYMPH % 8.1 % (8-40); MCH 24.2 pg (25.7-33.7); MCHC 30.8 g/dl (32.0-35.9); MEAN CELL VOLUME 78.6 fl (80-96); MEAN PLT VOLUME 7.3 fl (7.5-11.1); MONO % 9.4 % (3.8-10.2); NEUT % 79.9 % (42.8-82.8); PLATELET COUNT 302 K/MM3 (134-434); RBC 4.13 M/mm3 (4.00-5.60); RDW 19.9 % (11.9-15.9); WHITE BLOOD COUNT 13.4 K/mm3 (4.0-10.0)
[2020-08-30 07:20] LABS: INR 3.8 (0.83-1.09); PROTHROMBIN TIME (PATIENT) 44.2 SEC (9.7-13.0)
[2020-08-30 07:43] LABS: ALBUMIN 1.7 g/dl (3.4-5.0); BLOOD UREA NITROGEN 34.2 mg/dL (7-18); CALCIUM 8.7 mg/dL (8.5-10.1)
[2020-08-30 07:47] LABS: CREATININE 1.3 mg/dL (0.55-1.3)
[2020-08-30 07:48] LABS: BILIRUBIN,TOTAL 0.2 mg/dL (0.2-1); TOT PROT 6.2 g/dl (6.4-8.2)
[2020-08-30] MEDS ORDERED: WARFARIN NA 5 MG TABLET PO SCH (08:04)
[2020-08-30] MEDS: FERROUS SO4 300 MG/5 ML ORAL SOLN UNIT DOSE CUPS GT SCH ×2 (08:23→17:39)
[2020-08-30] MEDS: ALBUTEROL SO4 2.5/IPRATROPIUM 0.5 INH SOL 3 ML VIAL.NEB. NEB SCH ×4 (08:34→20:00)
[2020-08-30] MEDS ORDERED: PT OWN MED DRAWER 7, Y5N ONE (08:54)
[2020-08-30] MEDS: MULTIVIT-MINERALS ORAL LIQUID PO SCH (09:02)
[2020-08-30] MEDS: METOPROLOL TARTRATE 50 MG TABLET (FP) PO SCH ×2 (09:02→22:23)
[2020-08-30] MEDS: SILVER SULFADIAZINE 1% TOP CREAM 50 GM JAR TP SCH ×2 (09:02→22:31)
[2020-08-30] MEDS: FAMOTIDINE 40 MG/5 ML ORAL SUSPENSION PEG SCH ×2 (09:02→22:26)
[2020-08-30 09:38] LABS: ANISOCYTOSIS 1+; MACROCYTOSIS 0; PLATELET ESTIMATE NORMAL
[2020-08-30] MEDS: WARFARIN NA 2.5 MG, WARFARIN NA 2 MG PO SCH (17:00)
[2020-08-30] MEDS: ATORVASTATIN CA 10 MG TABLET (FP) PEG SCH (22:23)
[2020-08-30] MEDS: INSULIN (LEVEMIR) 100 UNITS/ML UNITS SQ SCH (22:30)
[2020-08-31] MEDS: INSULIN SLIDING SCALE (NOVOLOG) 1 VIAL SQ SCH ×4 (06:19→23:20)
[2020-08-31 07:14] LABS: POTASSIUM 4.2 mmol/L (3.5-5.1)
[2020-08-31 07:16] LABS: INR 3.42 (0.83-1.09); PROTHROMBIN TIME (PATIENT) 40.6 SEC (9.7-13.0)
[2020-08-31 07:20] LABS: CALCIUM 8.9 mg/dL (8.5-10.1)
[2020-08-31 07:21] LABS: ALBUMIN 1.8 g/dl (3.4-5.0); BLOOD UREA NITROGEN 36.2 mg/dL (7-18)
[2020-08-31 07:25] LABS: BILIRUBIN,TOTAL 0.3 mg/dL (0.2-1)
[2020-08-31 07:26] LABS: CREATININE 1.3 mg/dL (0.55-1.3)
[2020-08-31 07:32] LABS: BASO % 1.4 % (0-2.0); HEMATOCRIT 32.2 % (35.4-49); HEMOGLOBIN 9.9 GM/dL (11.7-16.9); LYMPH % 7.6 % (8-40); MCHC 30.7 g/dl (32.0-35.9); MEAN CELL VOLUME 78.4 fl (80-96); MEAN PLT VOLUME 7.7 fl (7.5-11.1); PLATELET COUNT 318 K/MM3 (134-434); WHITE BLOOD COUNT 14.3 K/mm3 (4.0-10.0)
[2020-08-31] MEDS: ALBUTEROL SO4 2.5/IPRATROPIUM 0.5 INH SOL 3 ML VIAL.NEB. NEB SCH ×4 (08:01→20:42)
[2020-08-31] MEDS: METOPROLOL TARTRATE 50 MG TABLET (FP) PO SCH ×2 (09:18→22:38)
[2020-08-31] MEDS: FERROUS SO4 300 MG/5 ML ORAL SOLN UNIT DOSE CUPS GT SCH ×2 (09:18→18:11)
[2020-08-31] MEDS: THIAMINE HCL 200 MG/2 ML VIAL IM SCH (09:26)
[2020-08-31] MEDS: CYANOCOBALAMIN (VITAMIN B-12) 1000 MCG/1 ML VIAL IM SCH (09:26)
[2020-08-31] MEDS: SILVER SULFADIAZINE 1% TOP CREAM 50 GM JAR TP SCH ×2 (09:27→22:38)
[2020-08-31] MEDS: MULTIVIT-MINERALS ORAL LIQUID PO SCH (09:28)
[2020-08-31] MEDS: FAMOTIDINE 40 MG/5 ML ORAL SUSPENSION PEG SCH ×2 (09:28→22:37)
[2020-08-31] MEDS ORDERED: PT OWN MED DRAWER 7, Y5N ONE (22:34)
[2020-08-31] MEDS: ATORVASTATIN CA 10 MG TABLET (FP) PEG SCH (22:38)
[2020-08-31] MEDS: INSULIN (LEVEMIR) 100 UNITS/ML UNITS SQ SCH (23:19)
[2020-09-01] MEDS: INSULIN SLIDING SCALE (NOVOLOG) 1 VIAL SQ SCH ×4 (06:05→22:02)
[2020-09-01 07:15] LABS: EOS % 1.6 % (0-4.5); HEMATOCRIT 32.5 % (35.4-49); HEMOGLOBIN 9.7 GM/dL (11.7-16.9); LYMPH % 7.7 % (8-40); MCH 23.7 pg (25.7-33.7); MCHC 29.9 g/dl (32.0-35.9); MEAN CELL VOLUME 79.1 fl (80-96); MEAN PLT VOLUME 7.7 fl (7.5-11.1); MONO % 9.4 % (3.8-10.2); NEUT % 80.3 % (42.8-82.8); PLATELET COUNT 303 K/MM3 (134-434); RBC 4.11 M/mm3 (4.00-5.60); RDW 20.1 % (11.9-15.9)
[2020-09-01 07:23] LABS: INR 3.2 (0.83-1.09); PROTHROMBIN TIME (PATIENT) 37.4 SEC (9.7-13.0)
[2020-09-01] MEDS: ALBUTEROL SO4 2.5/IPRATROPIUM 0.5 INH SOL 3 ML VIAL.NEB. NEB SCH ×4 (07:35→20:27)
[2020-09-01 07:40] LABS: POTASSIUM 4.4 mmol/L (3.5-5.1)
[2020-09-01 07:48] LABS: CALCIUM 8.9 mg/dL (8.5-10.1)
[2020-09-01 07:49] LABS: ALBUMIN 1.8 g/dl (3.4-5.0); BLOOD UREA NITROGEN 33.9 mg/dL (7-18)
[2020-09-01 07:52] LABS: CREATININE 1.4 mg/dL (0.55-1.3)
[2020-09-01] MEDS ORDERED: INSULIN SLIDING SCALE (NOVOLOG) 1 VIAL SQ ONE (07:52)
[2020-09-01] MEDS ORDERED: INSULIN (LEVEMIR) 100 UNITS/ML UNITS SQ ONE (07:52)
[2020-09-01 07:53] LABS: BILIRUBIN,TOTAL 0.3 mg/dL (0.2-1); TOT PROT 6.1 g/dl (6.4-8.2)
[2020-09-01] MEDS ORDERED: PT OWN MED DRAWER 7, Y5N ONE ×2 (10:10→19:51)
[2020-09-01] MEDS: MULTIVIT-MINERALS ORAL LIQUID PO SCH (10:13)
[2020-09-01] MEDS: FERROUS SO4 300 MG/5 ML ORAL SOLN UNIT DOSE CUPS GT SCH ×2 (10:13→17:22)
[2020-09-01] MEDS: METOPROLOL TARTRATE 50 MG TABLET (FP) PO SCH ×2 (10:13→22:01)
[2020-09-01] MEDS: FAMOTIDINE 40 MG/5 ML ORAL SUSPENSION PEG SCH ×2 (10:14→22:02)
[2020-09-01] MEDS: THIAMINE HCL 200 MG/2 ML VIAL IM SCH (10:14)
[2020-09-01] MEDS: CYANOCOBALAMIN (VITAMIN B-12) 1000 MCG/1 ML VIAL IM SCH (10:15)
[2020-09-01] MEDS: SILVER SULFADIAZINE 1% TOP CREAM 50 GM JAR TP SCH ×2 (12:10→22:02)
[2020-09-01] MEDS: SODIUM CHLORIDE 0.45% 1,000 ML IV SCH (12:30)
[2020-09-01] MEDS ORDERED: WARFARIN NA 2 MG TABLET ONE (17:19)
[2020-09-01] MEDS ORDERED: WARFARIN NA 2.5 MG TABLET ONE (17:19)
[2020-09-01] MEDS: WARFARIN NA 2.5 MG, WARFARIN NA 2 MG PO SCH (17:22)
[2020-09-01] MEDS: INSULIN (LEVEMIR) 100 UNITS/ML UNITS SQ SCH (22:01)
[2020-09-01] MEDS: ATORVASTATIN CA 10 MG TABLET (FP) PEG SCH (22:01)
[2020-09-02] MEDS: SODIUM CHLORIDE 0.45% 1,000 ML IV SCH ×2 (01:41→13:32)
[2020-09-02] MEDS: INSULIN SLIDING SCALE (NOVOLOG) 1 VIAL SQ SCH ×4 (06:27→21:28)
[2020-09-02 07:19] LABS: BASO % 1.1 % (0-2.0); EOS % 2.2 % (0-4.5); HEMOGLOBIN 10.4 GM/dL (11.7-16.9); LYMPH % 9.2 % (8-40); MCH 23.6 pg (25.7-33.7); MCHC 29.6 g/dl (32.0-35.9); MEAN CELL VOLUME 79.7 fl (80-96); MONO % 8.5 % (3.8-10.2); PLATELET COUNT 274 K/MM3 (134-434); RBC 4.39 M/mm3 (4.00-5.60); RDW 19.7 % (11.9-15.9); WHITE BLOOD COUNT 13.3 K/mm3 (4.0-10.0)
[2020-09-02 07:22] LABS: INR 3.05 (0.83-1.09); PROTHROMBIN TIME (PATIENT) 36.3 SEC (9.7-13.0)
[2020-09-02 07:33] LABS: POTASSIUM 4.5 mmol/L (3.5-5.1)
[2020-09-02 07:41] LABS: ALBUMIN 1.9 g/dl (3.4-5.0); BLOOD UREA NITROGEN 32.3 mg/dL (7-18); CALCIUM 9.1 mg/dL (8.5-10.1)
[2020-09-02 07:44] LABS: CREATININE 1.3 mg/dL (0.55-1.3)
[2020-09-02 07:46] LABS: BILIRUBIN,TOTAL 0.4 mg/dL (0.2-1); TOT PROT 6.5 g/dl (6.4-8.2)
[2020-09-02] MEDS: FERROUS SO4 300 MG/5 ML ORAL SOLN UNIT DOSE CUPS GT SCH ×2 (08:18→17:22)
[2020-09-02] MEDS: ALBUTEROL SO4 2.5/IPRATROPIUM 0.5 INH SOL 3 ML VIAL.NEB. NEB SCH ×4 (08:19→19:49)
[2020-09-02] MEDS: MULTIVIT INJ. ADULT COMBO WITH VIT K 1 COMBO 10 ML VIAL IV SCH (09:23)
[2020-09-02] MEDS: METOPROLOL TARTRATE 50 MG TABLET (FP) PO SCH ×2 (09:24→21:27)
[2020-09-02] MEDS: SILVER SULFADIAZINE 1% TOP CREAM 50 GM JAR TP SCH ×2 (09:24→21:28)
[2020-09-02] MEDS: FAMOTIDINE 40 MG/5 ML ORAL SUSPENSION PEG SCH ×2 (09:24→21:28)
[2020-09-02] MEDS: CYANOCOBALAMIN (VITAMIN B-12) 1000 MCG/1 ML VIAL IM SCH (09:25)
[2020-09-02] MEDS: THIAMINE HCL 200 MG/2 ML VIAL IM SCH (09:25)
[2020-09-02] MEDS ORDERED: WARFARIN NA 2.5 MG TABLET ONE (16:35)
[2020-09-02] MEDS ORDERED: WARFARIN NA 2 MG TABLET ONE (16:35)
[2020-09-02] MEDS: WARFARIN NA 2.5 MG, WARFARIN NA 2 MG PO SCH (17:22)
[2020-09-02] MEDS ORDERED: PT OWN MED DRAWER 7, Y5N ONE (20:50)
[2020-09-02] MEDS: ATORVASTATIN CA 10 MG TABLET (FP) PEG SCH (21:27)
[2020-09-02] MEDS: INSULIN (LEVEMIR) 100 UNITS/ML UNITS SQ SCH (21:29)
[2020-09-03] MEDS: SODIUM CHLORIDE 0.45% 1,000 ML IV SCH (05:59)
[2020-09-03] MEDS: INSULIN SLIDING SCALE (NOVOLOG) 1 VIAL SQ SCH ×4 (06:55→22:39)
[2020-09-03 07:24] LABS: EOS % 2.9 % (0-4.5); HEMATOCRIT 30.1 % (35.4-49); LYMPH % 8.9 % (8-40); MCH 23.4 pg (25.7-33.7); MCHC 29.9 g/dl (32.0-35.9); MEAN CELL VOLUME 78.2 fl (80-96); NEUT % 79.2 % (42.8-82.8); PLATELET COUNT 274 K/MM3 (134-434); RBC 3.85 M/mm3 (4.00-5.60); RDW 20.1 % (11.9-15.9); WHITE BLOOD COUNT 12.4 K/mm3 (4.0-10.0)
[2020-09-03 07:27] LABS: INR 2.23 (0.83-1.09); PROTHROMBIN TIME (PATIENT) 26.4 SEC (9.7-13.0)
[2020-09-03 07:43] LABS: POTASSIUM 4.3 mmol/L (3.5-5.1)
[2020-09-03 07:47] LABS: CALCIUM 8.7 mg/dL (8.5-10.1)
[2020-09-03 07:48] LABS: ALBUMIN 1.7 g/dl (3.4-5.0); BLOOD UREA NITROGEN 31.9 mg/dL (7-18)
[2020-09-03 07:51] LABS: CREATININE 1.2 mg/dL (0.55-1.3)
[2020-09-03 07:52] LABS: BILIRUBIN,TOTAL 0.8 mg/dL (0.2-1); TOT PROT 5.8 g/dl (6.4-8.2)
[2020-09-03] MEDS: ALBUTEROL SO4 2.5/IPRATROPIUM 0.5 INH SOL 3 ML VIAL.NEB. NEB SCH ×4 (08:03→20:10)
[2020-09-03] MEDS: FERROUS SO4 300 MG/5 ML ORAL SOLN UNIT DOSE CUPS GT SCH ×2 (08:20→17:14)
[2020-09-03] MEDS ORDERED: PT OWN MED DRAWER 7, Y5N ONE ×2 (09:32→22:28)
[2020-09-03] MEDS: SILVER SULFADIAZINE 1% TOP CREAM 50 GM JAR TP SCH ×2 (09:44→22:37)
[2020-09-03] MEDS: THIAMINE HCL 200 MG/2 ML VIAL IM SCH (09:44)
[2020-09-03] MEDS: FAMOTIDINE 40 MG/5 ML ORAL SUSPENSION PEG SCH ×2 (09:44→22:37)
[2020-09-03] MEDS: CYANOCOBALAMIN (VITAMIN B-12) 1000 MCG/1 ML VIAL IM SCH (09:45)
[2020-09-03] MEDS: METOPROLOL TARTRATE 50 MG TABLET (FP) PO SCH ×2 (09:45→22:36)
[2020-09-03] MEDS: MULTIVIT INJ. ADULT COMBO WITH VIT K 1 COMBO 10 ML VIAL IV SCH (09:45)
[2020-09-03] MEDS: AMINO ACIDS/PROTEIN HYDROLYS 30 ML LIQUID.PKT GT SCH (17:14)
[2020-09-03] MEDS ORDERED: WARFARIN NA 5 MG TABLET PO SCH (18:00)
[2020-09-03] MEDS: ATORVASTATIN CA 10 MG TABLET (FP) PEG SCH (22:36)
[2020-09-03] MEDS: INSULIN (LEVEMIR) 100 UNITS/ML UNITS SQ SCH (22:39)
[2020-09-04] MEDS: INSULIN SLIDING SCALE (NOVOLOG) 1 VIAL SQ SCH ×4 (06:12→22:24)
[2020-09-04 07:21] LABS: EOS % 3.6 % (0-4.5); HEMATOCRIT 29.6 % (35.4-49); HEMOGLOBIN 9.1 GM/dL (11.7-16.9); LYMPH % 8.4 % (8-40); MCH 24.2 pg (25.7-33.7); MCHC 30.8 g/dl (32.0-35.9); MEAN CELL VOLUME 78.4 fl (80-96); MEAN PLT VOLUME 8.1 fl (7.5-11.1); MONO % 7.5 % (3.8-10.2); NEUT % 79.5 % (42.8-82.8); PLATELET COUNT 265 K/MM3 (134-434); RBC 3.77 M/mm3 (4.00-5.60); RDW 19.3 % (11.9-15.9); WHITE BLOOD COUNT 10.6 K/mm3 (4.0-10.0)
[2020-09-04 07:25] LABS: INR 2.02 (0.83-1.09); PROTHROMBIN TIME (PATIENT) 24.4 SEC (9.7-13.0)
[2020-09-04 07:30] LABS: POTASSIUM 4.4 mmol/L (3.5-5.1)
[2020-09-04 07:32] LABS: CALCIUM 8.6 mg/dL (8.5-10.1)
[2020-09-04 07:33] LABS: ALBUMIN 1.7 g/dl (3.4-5.0)
[2020-09-04 07:36] LABS: CREATININE 1.4 mg/dL (0.55-1.3)
[2020-09-04 07:37] LABS: BILIRUBIN,TOTAL 0.2 mg/dL (0.2-1)
[2020-09-04 07:38] LABS: TOT PROT 5.9 g/dl (6.4-8.2)
[2020-09-04] MEDS: ALBUTEROL SO4 2.5/IPRATROPIUM 0.5 INH SOL 3 ML VIAL.NEB. NEB SCH ×4 (08:00→20:03)
[2020-09-04] MEDS ORDERED: PT OWN MED DRAWER 7, Y5N ONE ×2 (08:56→20:52)
[2020-09-04] MEDS: AMINO ACIDS/PROTEIN HYDROLYS 30 ML LIQUID.PKT GT SCH ×2 (09:17→17:05)
[2020-09-04] MEDS: FERROUS SO4 300 MG/5 ML ORAL SOLN UNIT DOSE CUPS GT SCH ×2 (09:17→17:05)
[2020-09-04] MEDS: METOPROLOL TARTRATE 50 MG TABLET (FP) PO SCH ×2 (09:18→22:14)
[2020-09-04] MEDS: FAMOTIDINE 40 MG/5 ML ORAL SUSPENSION PEG SCH ×2 (09:19→22:25)
[2020-09-04] MEDS: ENOXAPARIN NA (PORCINE) 80 MG/0.8 ML DISP.SYRIN SQ SCH ×2 (10:31→22:15)
[2020-09-04] MEDS: MULTIVIT INJ. ADULT COMBO WITH VIT K 1 COMBO 10 ML VIAL IV SCH (10:35)
[2020-09-04] MEDS: SILVER SULFADIAZINE 1% TOP CREAM 50 GM JAR TP SCH ×2 (11:25→22:25)
[2020-09-04] MEDS: WARFARIN NA 3 MG TABLET PO SCH (17:05)
[2020-09-04] MEDS: ATORVASTATIN CA 10 MG TABLET (FP) PEG SCH (22:14)
[2020-09-04] MEDS: INSULIN (LEVEMIR) 100 UNITS/ML UNITS SQ SCH (22:23)
[2020-09-05] MEDS: INSULIN SLIDING SCALE (NOVOLOG) 1 VIAL SQ SCH ×4 (06:16→22:01)
[2020-09-05] MEDS: ALBUTEROL SO4 2.5/IPRATROPIUM 0.5 INH SOL 3 ML VIAL.NEB. NEB SCH ×4 (07:50→19:26)
[2020-09-05] MEDS: FERROUS SO4 300 MG/5 ML ORAL SOLN UNIT DOSE CUPS GT SCH ×2 (08:34→17:40)
[2020-09-05] MEDS: AMINO ACIDS/PROTEIN HYDROLYS 30 ML LIQUID.PKT GT SCH ×2 (08:34→17:40)
[2020-09-05] MEDS: METOPROLOL TARTRATE 50 MG TABLET (FP) PO SCH ×2 (09:08→21:55)
[2020-09-05] MEDS: ENOXAPARIN NA (PORCINE) 80 MG/0.8 ML DISP.SYRIN SQ SCH ×2 (09:08→21:56)
[2020-09-05] MEDS: FAMOTIDINE 40 MG/5 ML ORAL SUSPENSION PEG SCH ×2 (09:37→21:56)
[2020-09-05 11:44] LABS: INR 3.11 (0.83-1.09)
[2020-09-05] MEDS: SILVER SULFADIAZINE 1% TOP CREAM 50 GM JAR TP SCH ×2 (11:56→21:56)
[2020-09-05 12:14] LABS: ALBUMIN 1.7 g/dl (3.4-5.0); BILIRUBIN,TOTAL 0.2 mg/dL (0.2-1); BLOOD UREA NITROGEN 37.7 mg/dL (7-18); CALCIUM 8.8 mg/dL (8.5-10.1); CREATININE 1.2 mg/dL (0.55-1.3); POTASSIUM 4.2 mmol/L (3.5-5.1); TOT PROT 6.1 g/dl (6.4-8.2)
[2020-09-05] MEDS: CLOTRIMAZOLE/BETAMET DIPROP 15 GM TUBE TP SCH ×2 (17:40→21:55)
[2020-09-05] MEDS: WARFARIN NA 3 MG TABLET PO SCH (17:41)
[2020-09-05] MEDS ORDERED: PT OWN MED DRAWER 7, Y5N ONE (20:40)
[2020-09-05] MEDS: ATORVASTATIN CA 10 MG TABLET (FP) PEG SCH (21:54)
[2020-09-05] MEDS: INSULIN (LEVEMIR) 100 UNITS/ML UNITS SQ SCH (22:01)
[2020-09-06] MEDS: INSULIN SLIDING SCALE (NOVOLOG) 1 VIAL SQ SCH ×2 (06:44→11:49)
[2020-09-06 07:33] LABS: INR 3.28 (0.83-1.09)
[2020-09-06] MEDS: ALBUTEROL SO4 2.5/IPRATROPIUM 0.5 INH SOL 3 ML VIAL.NEB. NEB SCH ×2 (08:00→11:48)
[2020-09-06] MEDS ORDERED: INSULIN (LEVEMIR) 100 UNITS/ML UNITS SQ SCH (08:17)
[2020-09-06 08:39] LABS: BLOOD UREA NITROGEN 37.2 mg/dL (7-18); CREATININE 1.2 mg/dL (0.55-1.3); POTASSIUM 4.2 mmol/L (3.5-5.1)
[2020-09-06] MEDS: FERROUS SO4 300 MG/5 ML ORAL SOLN UNIT DOSE CUPS GT SCH (09:33)
[2020-09-06] MEDS: METOPROLOL TARTRATE 50 MG TABLET (FP) PO SCH (09:33)
[2020-09-06] MEDS: FAMOTIDINE 40 MG/5 ML ORAL SUSPENSION PEG SCH (09:34)
[2020-09-06] MEDS: AMINO ACIDS/PROTEIN HYDROLYS 30 ML LIQUID.PKT GT SCH (09:34)
[2020-09-06 09:45] VITALS: BP 127/59; PULSE 102; TEMP 97.4
[2020-09-06] MEDS: SILVER SULFADIAZINE 1% TOP CREAM 50 GM JAR TP SCH (11:50)
[2020-09-06] MEDS: CLOTRIMAZOLE/BETAMET DIPROP 15 GM TUBE TP SCH (11:50)
[2020-09-07] MEDS ORDERED: WARFARIN NA 5 MG TABLET PO SCH (18:00)
== END 2020-09-06 15:51 | disposition hospice, inpatient (51) | DRG 871 ==
LOC: JER 18:24 → JERBED 20:48 → JICU 08-20 21:07 → J4W 08-23 12:21 → J4S 08-23 15:50
PROVIDERS: ADMIT Hospitalist; ATTEND Family Medicine
PROC: 05HN33Z Insertion of Infusion Device into Left Internal Jugular Vein, Percutaneous Approach (ICD-10-PCS; principal; 2020-08-20)
PROC: B544ZZA Ultrasonography of Left Jugular Veins, Guidance (ICD-10-PCS; 2020-08-20)
DX: A41.89 Other specified sepsis (principal); J96.21 Acute and chronic respiratory failure with hypoxia; R65.21 Severe sepsis with septic shock; R53.2 Functional quadriplegia; J18.9 Pneumonia, unspecified organism; I69.351 Hemiplegia and hemiparesis following cerebral infarction affecting right dominant side; N39.0 Urinary tract infection, site not specified; E87.2 Acidosis; N17.9 Acute kidney failure, unspecified; I25.10 Atherosclerotic heart disease of native coronary artery without angina pectoris; I10 Essential (primary) hypertension; E78.5 Hyperlipidemia, unspecified; D64.9 Anemia, unspecified; B96.4 Proteus (mirabilis) (morganii) as the cause of diseases classified elsewhere; B96.1 Klebsiella pneumoniae [K. pneumoniae] as the cause of diseases classified elsewhere; E11.9 Type 2 diabetes mellitus without complications; D72.829 Elevated white blood cell count, unspecified; E88.09 Other disorders of plasma-protein metabolism, not elsewhere classified; J44.9 Chronic obstructive pulmonary disease, unspecified; L89.150 Pressure ulcer of sacral region, unstageable; L89.302 Pressure ulcer of unspecified buttock, stage 2; L89.510 Pressure ulcer of right ankle, unstageable; Z20.828 Contact with and (suspected) exposure to other viral communicable diseases; Z95.2 Presence of prosthetic heart valve; Z99.81 Dependence on supplemental oxygen; Z79.01 Long term (current) use of anticoagulants; Z85.038 Personal history of other malignant neoplasm of large intestine; Z93.0 Tracheostomy status; Z95.1 Presence of aortocoronary bypass graft
CPT/HCPCS: 36415; 36600; 71045-TC-FY; 74018-TC-FY; 74230-TC-FY; 80048; 80053; 81003; 82436; 82565; 82607; 82746; 82803; 82962; 83605; 83735; 84100; 84133; 84300; 84443; 84484; 85025; 85027; 85610; 85730; 86140; 86850; 86900; 86901; 87040; 87070; 87077; 87086; 87186; 87205; 92611-GN; 93005; 93010; 93971; 94640; 99285-25; C9803; E0186; G0480; J3480; U0003